=== PATIENT | female | born 1980 | race Caucasian/White ===

== ENCOUNTER 2018-12-14 17:13 | Emergency (ER) | payer OTHER, MEDICAID, SELFPAY ==
[2018-12-14 17:24] VITALS: BP 126/83; PULSE 83; RESP 16; TEMP 37.1; O2SAT 98; BMI 29.2
--- NOTE | 2018-12-14 18:12 | ED.HA ---
HPI - Headache General Chief Complaint: Headache Stated Complaint: migraine with vertigo Time Seen by Provider: 12/14/18 18:08 Source: patient Mode of arrival: ambulatory Limitations: no limitations History of Present Illness HPI Narrative: 38-year-old female nonsmoker with longstanding history of migraine headaches presents with a left frontal headache which is gradual in its onset and very classic for the way her migraines present. She admits to 7 pain which is worse with bright lights, loud noises and exertion. She has nausea but no vomiting. She tends to developed vertigo when her migraines flare up and states that they tend to coincide with her menstrual cycles, she started her period today. She denies any recent injury nor fever or chills. She has no neck or back pain MD Complaint: headache and migraine Onset (ago): day(s) Onset description: gradual Location: left and frontal Severity: severe Severity scale (1-10): 7 Quality: aching and throbbing Relieving factors: dark room Exacerbating factors: exertion, light and noise Associated symptoms: nausea Related Data Previous Rx's Medication Instructions Recorded butalbital 50 mg-acetaminophen 325 2 cap PO .COMPLEX PRN #15 cap 04/26/18 mg-caffeine 40 mg-codeine 30 mg cap hydroxyzine pamoate 25 mg capsule 25 mg PO Q4HP PRN #60 cap 08/24/18 venlafaxine ER 150 mg 150 mg PO DAILY #90 cap 08/24/18 capsule,extended release 24 hr venlafaxine ER 75 mg 75 mg PO DAILY #90 cap 08/24/18 capsule,extended release 24 hr ranitidine 300 mg tablet 300 mg PO BID #180 tab 10/04/18 eletriptan 40 mg tablet See Rx Instructions PO .COMPLEX 12/10/18 #10 tab verapamil ER 120 mg 24 hr 120 mg PO DAILY #60 cap 12/10/18 capsule,extended release Allergies Allergy/AdvReac Type Severity Reaction Status Date / Time cefaclor [CEFACLOR] Allergy Intermediate HIVES Verified 12/14/18 17:29 Penicillins [PENICILLINS] Allergy Intermediate HIVES Verified 12/14/18 17:29 Review of Systems Constitutional Denies chills, Denies fever(s), Reports headache(s), Denies lethargy and Denies weakness Eyes Denies change in vision, Denies eye discharge, Denies irritation and Denies loss of vision ENT Ears, Nose, Mouth, and Throat: Denies change in voice, Reports headache(s), Denies neck pain and Denies sore throat Cardiovascular Denies chest pain, Denies irregular heart rhythm, Denies lightheadedness, Denies palpitations, Denies dyspnea, Denies dyspnea on exertion and Denies orthopnea Respiratory Denies cough, Denies dyspnea, Denies dyspnea on exertion and Denies wheezing Gastrointestinal Gastrointestinal: Denies abdominal pain, Denies change in bowel habits, Denies diarrhea, Denies nausea and Denies vomiting Genitourinary Denies hematuria, Denies flank pain, Denies urinary incontinence and Denies urinary urgency Musculoskeletal Denies neck pain Integumentary/Breasts Denies pruritus, Denies erythema, Denies rash and Denies wounds Neurologic Denies confusion, Reports headache(s), Denies loss of vision and Denies weakness Psychiatric Denies anxiety, Denies confusion, Denies depression, Denies homicidal ideation and Denies suicidal ideation Endocrine Denies palpitations Hematologic/Lymphatic Denies easy bruising Allergic/Immunologic Denies wheezing [facility] Medical History Anxiety and depression (Chronic) Migraines (Chronic) depression (Chronic) Abnormal Pap smear of cervix (Resolved) DVT (deep vein thrombosis) in (Resolved 2014) 4 para 4 (Resolved) Hyperemesis gravidarum (Resolved) Surgical History Status post delivery (Resolved 2016) Status post loop electrosurgical excision procedure (LEEP) of cervix (Resolved 2012) Family History Mother Hypertension Father Hypertension Chronic pancreatitis Social History marital status: occupational status: other ([employer]) Smoking Status: Never smoker alcohol intake: never substance use type: does not use Family History Mother Hypertension Father Hypertension Chronic pancreatitis Social History marital status: occupational status: other ([employer]) Smoking Status: Never smoker alcohol intake: never substance use type: does not use Exam Narrative Exam Narrative: GENERAL: Female, obviously quite uncomfortable, massaging her temples and sitting in a dark room HEAD: Atraumatic. Normocephalic. No temporal or scalp tenderness. EYES: Pupils equal round and reactive. Extraocular motions intact. No scleral icterus. No injection or drainage. ENT: Nose without bleeding, purulent drainage or septal hematoma. Throat without erythema, tonsillar hypertrophy or exudate. Uvula midline. Airway patent. NECK: Trachea midline. No JVD or lymphadenopathy. Supple, nontender, no meningeal signs. CARDIOVASCULAR: Regular rate and rhythm without murmurs, gallops, or rubs. RESPIRATORY: Clear to auscultation. Breath sounds equal bilaterally. No wheezes, rales, or rhonchi. GASTROINTESTINAL: Abdomen soft, non-tender, nondistended. No hepato-splenomegaly, or palpable masses. No guarding. EXTREMITIES: No clubbing, cyanosis, or edema. No joint tenderness, effusion, or edema noted. BACK: Nontender without deformity or crepitance. No flank tenderness. NEURO: AOx3. SKIN: No rash or erythema. NIH Stroke Scale 1a. LOC: Patient is alert and keenly responsive (0) 1b. LOC Questions: Patient answers both LOC questions accurately (0) 1c. LOC Commands: Patient performs both tasks correctly (0) 2. Best Gaze: Normal (0) 3. Visual: No visual loss (0) 4. Facial palsy: Normal symmetrical movements (0) 5. Motor arm: No drift (0) 6. Motor leg: No drift (0) 7. Limb ataxia: Absent (0) 8. Sensory: Normal (0) 9. Best language: No aphasia; normal (0) 10. Dysarthria: Normal (0) 11. Extinction and inattention: No abnormality (0) NIHSS: 0 Initial Vital Signs Initial Vital Signs: Vital Signs Temperature 98.7 F 12/14/18 17:24 Pulse Rate 83 12/14/18 17:24 Respiratory Rate 16 12/14/18 17:24 Blood Pressure 126/83 12/14/18 17:24 Pulse Oximetry 98 12/14/18 17:24 Course Orders Ordered: Discontinued Medications Dexamethasone (Decadron) 10 mg IV NOW ONE Stop: 12/14/18 18:42 Last Admin: 12/14/18 19:02 Dose: 10 mg Diphenhydramine HCl (Benadryl) 25 mg IV NOW ONE Stop: 12/14/18 18:42 Last Admin: 12/14/18 19:06 Dose: 25 mg Sodium Chloride (Normal Saline 0.9%) 1,000 mls @ 1,000 mls/hr IV BOLUS ONE Stop: 12/14/18 19:40 Last Infusion: 12/14/18 20:19 Dose: 0 mls/hr Admin: 12/14/18 19:02 Dose: 1,000 mls/hr Ketorolac Tromethamine (Toradol) 15 mg IV NOW ONE Stop: 12/14/18 18:42 Last Admin: 12/14/18 19:06 Dose: 15 mg Metoclopramide HCl (Reglan) 10 mg IV NOW ONE Stop: 12/14/18 18:42 Last Admin: 12/14/18 19:08 Dose: 10 mg Reevaluation(s) Reevaluation #1: Patient has significant improvement after the above-stated therapies is requesting discharge Vital Signs - 8 hr 12/14/18 17:24 12/14/18 19:00 12/14/18 20:02 Temperature 98.7 F Pulse Rate 83 84 79 Respiratory Rate 16 18 18 Blood Pressure 126/83 Blood Pressure [Left Arm] 115/78 113/69 Pulse Oximetry 98 100 100 12/14/18 20:20 Temperature Pulse Rate 62 Respiratory Rate 16 Blood Pressure 110/71 Blood Pressure [Left Arm] Pulse Oximetry 100 MDM - Headache Lab Data Point of Care Testing Glucose POC 91 Discharge Plan Departure Patient Disposition: Home Clinical Impression: Migraine without aura and without status migrainosus, not intractable Discharge Date/Time: 12/14/18 20:20 Interventions: ED Discharge Assessment Last Done: 12/14/18 20:20 Instructions: DI for Headache Activity Restrictions/Additional Instructions: *You have been diagnosed with [acute migraine headache] *What to do: *Take medications as directed *Follow up with your primary care provider in 2-3 days, call for an appointment. Let them know you were seen in the Emergency Department and that we ask that you be seen in follow up *Return to ER if you should have any new, worsening or concerning symptoms Prescriptions: No Action ranitidine HCl 300 mg tablet 300 mg PO BID Qty: 180 RF: 3 hydroxyzine pamoate 25 mg capsule 25 mg PO Q4HP PRN (Reason: anxiety) Qty: 60 RF: 3 venlafaxine 150 mg capsule,extended release 24hr 150 mg PO DAILY Qty: 90 RF: 3 venlafaxine 75 mg capsule,extended release 24hr 75 mg PO DAILY Qty: 90 RF: 3 jmeypwlvra-qktgotahgh-jrs-cod 18-491-11-30 mg capsule 2 cap PO .COMPLEX PRN (Reason: pain) Qty: 15 RF: 5 verapamil 120 mg capsule,ext rel. pellets 24 hr 120 mg PO DAILY Qty: 60 RF: 2 eletriptan 40 mg tablet See Rx Instructions PO .COMPLEX Qty: 10 RF: 2 Referrals: Kiera Abdalla DO [Primary Care Provider] -
[2018-12-14 19:00] VITALS: BP 115/78; PULSE 84; RESP 18; O2SAT 100
[2018-12-14] MEDS: SODIUM CHLORIDE 0.9% 1,000 ML 1000 ML IV (19:02)
[2018-12-14] MEDS: DEXAMETHASONE 10 MG/ML VIAL IV (19:02)
[2018-12-14] MEDS: diphenhydrAMINE 50 MG/ML VIAL 25 MG IV (19:06)
[2018-12-14] MEDS: KETOROLAC 60 MG/2 ML VIAL 15 MG IV (19:06)
[2018-12-14] MEDS: METOCLOPRAMIDE 10 MG/2 ML INJ IV (19:08)
--- NOTE | 2018-12-14 20:00 | PC.NURSE ---
NAD. Pt resting comfortably at this time. States feeling better. Pain tolerated at this time. 08/19. Will continue to monitor.
[2018-12-14 20:02] VITALS: BP 113/69; PULSE 79; RESP 18; O2SAT 100
[2018-12-14 20:20] VITALS: BP 110/71; PULSE 62; RESP 16; O2SAT 100
== END 2018-12-14 20:20 | disposition home or self-care (01) ==
PROVIDERS: Emergency Provider Emergency Medicine; Family Provider Family Medicine; PCP Family Medicine
DX: G43.009 Migraine without aura, not intractable, without status migrainosus (principal)
CPT/HCPCS: 36591; 82962; 96361; 96374; 96375; 99283; 99284; J1100; J1200; J1885; J2765

== ENCOUNTER → 2019-02-01 16:20 | Outpatient (CLI) | payer OTHER, MEDICAID, SELFPAY ==
[2019-02-01 18:20] LABS: Appearance Urine UA CLEAR; Bilirubin Urine UA NEGATIVE (NEGATIVE); Color Urine UA YELLOW; Glucose Urine UA NEGATIVE (Negative); Ketones Urine UA NEGATIVE (NEGATIVE); Leukocyte Esterase Urine UA 2+ (NEGATIVE); Nitrite Urine UA NEGATIVE (Negative); Occult Blood Urine UA 3+ (Negative); Protein Urine UA NEGATIVE (Negative); Specific Gravity Urine UA <=1.005 (1.000-1.035); Urobilinogen Urine UA 0.2 E.U./dL (0.2)
[2019-02-01 18:46] LABS: Bacteria Urine Few (2-10); Culture Indicated Urine Specimen Cultured; RBC Urine 5-10/HPF (0-5/HPF); Squamous Epithelial Cell Urine 0-1 /HPF (0-5/HPF); WBC Urine 10-30/HPF (0-5/HPF)
== END ==
PROVIDERS: Family Provider Family Medicine; PCP Family Medicine; Visit Provider Hospitalist
DX: R31.9 Hematuria, unspecified (principal); R35.0 Frequency of micturition
CPT/HCPCS: 81001; 87086

== ENCOUNTER → 2019-03-19 14:56 | Outpatient (CLI) | payer OTHER, MEDICAID, SELFPAY | PROVIDERS: Family Provider Family Medicine; PCP Family Medicine; Visit Provider Family Medicine | DX: R30.0 Dysuria (principal) | CPT/HCPCS: 87086 ==

== ENCOUNTER → 2020-05-20 13:58 | Outpatient (CLI) | payer OTHER, MEDICAID, SELFPAY ==
--- NOTE | 2020-05-20 13:59 | DI.RAD.S_ITS ---
PROCEDURE: XR LUMBAR SPINE 2-3V INDICATIONS: low back pain TECHNIQUE: 3 views of the lumbar spine were acquired. COMPARISON: None. FINDINGS: Bones: 5 hky-bia-mjzklpe vertebrae are present. There is normal bony alignment. No vertebral body compression fractures. No suspicious bony lesions. Soft tissues: Overlying bowel gas pattern is normal. 3 mm calcification projected over the right upper quadrant suspicious for small gallstone or small renal calculus. IMPRESSION: Mild degenerative change. Right upper quadrant calcification suspicious for small gallstone or renal calculus. Dictated by: Wanda Melara M.D. on 05/20/2020 at 15:30 Approved by: Wanda Melara M.D. on 05/20/2020 at 15:38
== END ==
PROVIDERS: Family Provider Family Medicine; PCP Family Medicine; Referring Provider Nurse Practitioner Family; Visit Provider Nurse Practitioner Family
DX: M54.5 Low back pain (principal); M47.816 Spondylosis without myelopathy or radiculopathy, lumbar region
CPT/HCPCS: 72100

== ENCOUNTER → 2020-05-27 13:12 | Outpatient (CLI) | payer OTHER, MEDICAID, SELFPAY ==
--- NOTE | 2020-05-27 13:13 | DI.US.S_ITS ---
PROCEDURE: US ABDOMEN COMPLETE INDICATIONS: POSSIBLE GALLBLADDER OR KIDNEY STONE SEEN ON PRIOR XRAY TECHNIQUE: Real-time scanning was performed of the abdominal and retroperitoneal organs, with image documentation. COMPARISON: [facility], US, ABDOMEN COMPLETE, 12/29/2010, 21:38. FINDINGS: Liver: Liver is diffusely echogenic and measures 13.0 cm. Gallbladder: Gallbladder distended. No gallbladder wall thickening or sonographic Keating sign. Biliary ducts: Intrahepatic bile ducts are non-dilated. Extrahepatic bile duct caliber measures 2-3 mm. Normal is 6-7 mm or less in diameter, or 10 mm or less post-cholecystectomy. Pancreas: Visualized portions of the pancreas are sonographically normal. Spleen: Spleen is normal in size and homogeneous in echotexture. Kidneys: Kidneys are normal in size and echotexture. Right kidney measures 11.0 cm long; left kidney measures 11.0 cm long. Mild right hydronephrosis. Bilateral small echogenic foci within the kidneys suggestive of nephrolithiasis. Aorta: Visualized aorta is normal in caliber at less than 3 cm. Iliacs: Proximal common iliac arteries are normal in caliber at less than 2.5 cm. IVC: Intrahepatic inferior vena cava is patent. Miscellaneous: No free abdominal fluid. IMPRESSION: Distended gallbladder however no other sonographic criteria for acute cholecystitis. Findings suggest bilateral nephrolithiasis which could be confirmed with CT KUB. Mild right hydronephrosis Dictated by: Yefri Love M.D. on 05/27/2020 at 16:09 Approved by: Yefri Love M.D. on 05/27/2020 at 16:11
== END ==
PROVIDERS: Family Provider Family Medicine; PCP Family Medicine; Referring Provider Nurse Practitioner Family; Visit Provider Nurse Practitioner Family
DX: R93.89 Abnormal findings on diagnostic imaging of other specified body structures (principal); N13.30 Unspecified hydronephrosis
CPT/HCPCS: 76700

== ENCOUNTER → 2020-06-10 15:15 | Outpatient (CLI) | payer OTHER, MEDICAID, SELFPAY ==
[2020-06-10 15:57] LABS: Hematocrit 40.4 % (36-46); Hemoglobin 13.4 g/dL (12.0-16.0); Mean Corpuscular HGB Conc 33.2 % (30-36); Mean Corpuscular Hemoglobin 30.1 PG (26-34); Mean Corpuscular Volume 90.5 fL (80-100); Platelet Count 284 X10^3/uL (150-400); Red Blood Cell Count 4.46 X10^6/uL (4.0-5.2); Red Cell Distribution Width 13.1 % (11.6-14.8); White Blood Cell Count 7.6 X10^3/uL (4.5-11.0)
[2020-06-10 16:09] LABS: Alanine Aminotransferase 13 IU/L (<35); Albumin 4.4 g/dL (3.5-5.0); Albumin Globulin Ratio 1.5 (1.0-2.8); Alkaline Phosphatase 83 U/L (38-126); Aspartate Aminotransferase 21 IU/L (14-36); BUN Creatinine Ratio 22.6 (6-22); Bilirubin Total 0.2 mg/dL (0.2-1.3); Blood Urea Nitrogen 14 mg/dL (7-17); Calcium 8.8 mg/dL (8.4-10.2); Carbon Dioxide 23 mmol/L (22-32); Chloride 110 mmol/L (98-107); Estimated Glomerular Filt Rate > 60.0 mL/min (>60); Glucose 95 mg/dL (70-100); HEMOLYSIS 24 (0-50); Potassium 4.1 mmol/L (3.4-5.1); Sodium 138 mmol/L (137-145); Total Protein 7.4 g/dL (6.3-8.2)
== END ==
PROVIDERS: Family Provider Family Medicine; PCP Family Medicine; Referring Provider Nurse Practitioner Family; Visit Provider Nurse Practitioner Family
DX: N20.0 Calculus of kidney (principal); R31.9 Hematuria, unspecified
CPT/HCPCS: 36415; 80053; 85027

== ENCOUNTER → 2020-07-22 12:54 | Outpatient (CLI) | payer OTHER, MEDICAID, SELFPAY ==
[2020-08-03 14:13] LABS: Size 4X4 mm; Stone Analysis Source URINARY TRACT
== END ==
PROVIDERS: Family Provider Family Medicine; PCP Family Medicine; Referring Provider Nurse Practitioner Family; Visit Provider Nurse Practitioner Family
DX: N20.0 Calculus of kidney (principal)
CPT/HCPCS: 82365

== ENCOUNTER → 2020-10-29 13:22 | Outpatient (CLI) | payer OTHER, MEDICAID, SELFPAY ==
[2020-10-29 14:06] LABS: Appearance Urine UA SL CLOUDY; Bilirubin Urine UA NEGATIVE (NEGATIVE); Color Urine UA YELLOW; Glucose Urine UA NEGATIVE (Negative); Ketones Urine UA NEGATIVE (NEGATIVE); Leukocyte Esterase Urine UA NEGATIVE (NEGATIVE); Nitrite Urine UA NEGATIVE (Negative); Occult Blood Urine UA 3+ (Negative); Protein Urine UA NEGATIVE (Negative); Specific Gravity Urine UA 1.015 (1.000-1.035); Urobilinogen Urine UA 0.2 E.U./dL (0.2)
[2020-10-29 14:14] LABS: pH Urine UA 6.5 (4.5-8.0)
[2020-10-29 14:29] LABS: Add Manual Diff / Slide Review NO; Basophils Absolute Auto 0 /uL (0-100); Basophils Percent Auto 0.1 % (0-2); Eosinophils Absolute Auto 200 /uL (0-450); Eosinophils Percent Auto 1.8 % (2-4); Hematocrit 37.3 % (36-46); Hemoglobin 12.5 g/dL (12.0-16.0); Lymphocytes Absolute Auto 1400 /uL (1100-4500); Lymphocytes Percent Auto 14.2 % (25-40); Mean Corpuscular HGB Conc 33.5 % (30-36); Mean Corpuscular Hemoglobin 30.5 PG (26-34); Mean Corpuscular Volume 90.9 fL (80-100); Monocytes Absolute Auto 600 /uL (0-900); Monocytes Percent Auto 5.8 % (3-14); Neutrophils Absolute Auto 7800 /uL (1500-7000); Neutrophils Percent Auto 78.1 % (50-75); Platelet Count 262 X10^3/uL (150-400); Red Blood Cell Count 4.11 X10^6/uL (4.0-5.2); Red Cell Distribution Width 12.7 % (11.6-14.8)
[2020-10-29 14:31] LABS: RBC Urine 10-30/HPF (0-5/HPF)
[2020-10-29 14:32] LABS: Bacteria Urine Occasional (0-1); Culture Indicated Urine Cult Not Indicated; Squamous Epithelial Cell Urine 0-1 /HPF (0-5/HPF); WBC Urine 0-1/HPF (0-5/HPF)
[2020-10-29 15:26] LABS: TSH w/ Reflex to FT4 2.47 uIU/mL (0.47-4.68)
[2020-10-29 16:57] LABS: Alanine Aminotransferase 14 IU/L (<35); Albumin 4.1 g/dL (3.5-5.0); Albumin Globulin Ratio 1.6 (1.0-2.8); Alkaline Phosphatase 70 U/L (38-126); Aspartate Aminotransferase 23 IU/L (14-36); BUN Creatinine Ratio 20.3 (6-22); Bilirubin Total 0.3 mg/dL (0.2-1.3); Blood Urea Nitrogen 13 mg/dL (7-17); Calcium 10.5 mg/dL (8.4-10.2); Carbon Dioxide 22 mmol/L (22-32); Chloride 104 mmol/L (98-107); Estimated Glomerular Filt Rate > 60.0 mL/min (>60); Globulin 2.5 g/dL (1.7-4.1); Glucose 80 mg/dL (70-100); HEMOLYSIS < 15 (0-50); Potassium 4.1 mmol/L (3.4-5.1); Sodium 135 mmol/L (137-145); Total Protein 6.6 g/dL (6.3-8.2)
[2020-10-29 17:27] LABS: Cortisol Random 7.23 ug/dL
== END ==
PROVIDERS: Family Provider Family Medicine; PCP Family Medicine; Referring Provider Family Medicine; Visit Provider Family Medicine
DX: E66.9 Obesity, unspecified (principal); R53.83 Other fatigue; R10.9 Unspecified abdominal pain
CPT/HCPCS: 36415; 80053; 81001; 82533; 84443; 85025

== ENCOUNTER 2020-10-31 01:25 | Emergency (ER) | payer OTHER, MEDICAID, SELFPAY ==
[2020-10-31 01:25] VITALS: BP 165/98; PULSE 94; RESP 22; TEMP 37; O2SAT 97
--- NOTE | 2020-10-31 01:47 | ED.BACK ---
HPI - Back Pain/Injury General Chief Complaint: Back Pain/Injury Stated Complaint: thinks she has kidney stone/rt side pain Time Seen by Provider: 10/31/20 01:33 Source: patient Mode of arrival: Ambulatory Limitations: no limitations History of Present Illness HPI Narrative: 40-year-old female nonsmoker with history of kidney stones presents with a chief complaint of gradually worsening right flank pain with radiation into right groin. She denies any obvious provocation or palliation. She states it is sharp, stabbing and severe in nature. She has had some nausea and vomiting and last took Zofran and Toradol few hours prior to her arrival. She denies any fever or chills. She denies dysuria, frequency or urgency. She is unable to find a position of comfort MD Complaint: other Onset (ago): day(s) Duration: intermittent Similar Symptoms Previously: Yes Location: right flank Severity: severe Quality: sharp and stabbing Radiation: groin Relieving factors: none Exacerbating factors: none Related Data Home Medications Medication Instructions Recorded Confirmed ascorbic acid (vitamin C) 500 mg 250 mg PO DAILY 10/09/20 10/19/20 tablet calcium carbonate 500 mg calcium 500 mg PO DAILY 10/09/20 10/19/20 (1,250 mg) tablet cholecalciferol (vitamin D3) 50 50 mcg PO DAILY 10/09/20 10/19/20 mcg (2,000 unit) tablet coenzyme Q10 30 mg capsule 30 mg PO DAILY 10/09/20 10/19/20 ibuprofen 600 mg tablet 600 mg PO Q8H PRN 10/09/20 10/19/20 magnesium 200 mg tablet 200 mg PO DAILY 10/09/20 10/19/20 ondansetron 8 mg disintegrating 8 mg PO Q12H 10/09/20 10/19/20 tablet tumeric Curcumin complex PO 10/09/20 10/19/20 Previous Rx's Medication Instructions Recorded verapamil 120 mg tablet 120 mg PO BID #60 tab 07/11/19 eletriptan 40 mg tablet See Rx Instructions PO .COMPLEX 12/05/19 #10 tab butalbital 50 mg-acetaminophen 325 See Rx Instructions .ROUTE 02/18/20 mg-caffeine 40 mg-codeine 30 mg cap .COMPLEX #20 cap diclofenac sodium 1 % topical gel 2 g TOPICAL QID #100 g 05/20/20 venlafaxine 150 mg 300 mg PO DAILY #60 cap 10/19/20 capsule,extended release 24 hr propranolol 10 mg tablet 10 mg PO BID PRN #30 tab 10/27/20 hydrocodone-acetaminophen 1 tab PO Q4-6H PRN #10 tab 10/31/20 ondansetron 4 mg PO TID-QID PRN #10 tab 10/31/20 sulfamethoxazole-trimethoprim 1 tab PO BID 10 Days #20 tab 10/31/20 [Bactrim DS] tamsulosin [Flomax] 0.4 mg PO DAILY #10 cap 10/31/20 Allergies Allergy/AdvReac Type Severity Reaction Status Date / Time cefaclor [CEFACLOR] Allergy Intermediate HIVES Verified 10/13/20 11:11 Penicillins [PENICILLINS] Allergy Intermediate HIVES Verified 10/13/20 11:11 Review of Systems Constitutional Constitutional: Denies chills, Denies fatigue, Denies fever(s), Denies frequent falls, Denies lethargy and Denies weakness Eyes Eyes: Denies change in vision, Denies eye discharge, Denies irritation and Denies loss of vision ENT Ears, Nose, Mouth, and Throat: Denies change in voice, Denies dizziness, Denies neck pain, Denies sore throat and Denies throat swelling Cardiovascular Cardiovascular: Denies chest pain, Denies irregular heart rhythm, Denies lightheadedness, Denies palpitations, Denies dyspnea, Denies dyspnea on exertion and Denies orthopnea Respiratory Respiratory: Denies cough, Denies dyspnea, Denies dyspnea on exertion and Denies wheezing Gastrointestinal Gastrointestinal: Denies abdominal pain, Denies change in bowel habits, Denies diarrhea, Denies nausea and Denies vomiting Genitourinary Genitourinary: Reports flank pain Genitourinary: Reports flank pain Musculoskeletal Musculoskeletal: Denies neck pain and Denies numbness Integumentary/Breasts Skin/Breast: Denies pruritus, Denies erythema, Denies rash and Denies wounds Neurologic Neurologic: Denies behavioral changes, Denies confusion, Denies dizziness, Denies frequent falls, Denies loss of vision, Denies numbness and Denies weakness Psychiatric Psychiatric: Denies anxiety, Denies behavioral changes, Denies confusion, Denies depression, Denies homicidal ideation and Denies suicidal ideation Endocrine Endocrine: Denies fatigue, Denies flushing and Denies palpitations Hematologic/Lymphatic Hematologic/Lymphatic: Denies easy bruising Allergic/Immunologic Allergic/Immunologic: Denies urticaria, Denies throat swelling and Denies wheezing Patient History Medical History Abnormal Pap smear of cervix Anxiety and depression DVT (deep vein thrombosis) in (2014) 4 para 4 Hematuria Hyperemesis gravidarum Kidney stones Migraines Obesity (BMI 30.0-34.9) depression Surgical History H/O tubal ligation History of delivery Status post delivery (2016) Status post loop electrosurgical excision procedure (LEEP) of cervix (2012) Family History Mother Hypertension Cancer Migraines Father Hypertension Chronic pancreatitis Kidney stone Grandmother Cancer Diabetes mellitus Brother Eczema Migraines Social History marital status: number of children: 4 occupational status: other ([employer]) Smoking Status: Never smoker alcohol intake: current substance use type: does not use caffeine: Yes Smoking Status: Never smoker Substance Use Type: does not use Exam Narrative Exam Narrative: GENERAL: [40] year old patient appears stated age. Well-nourished, well-developed patient, in mild distress. Obviously in pain, rocking on the car, rubbing her right flank HEAD: Atraumatic. Normocephalic. EYES: Pupils equal round and reactive. Extraocular motions intact. No scleral icterus. No injection or drainage. ENT: Nose without bleeding, purulent drainage. Throat without erythema, tonsillar hypertrophy or exudate. Airway patent. NECK: Trachea midline. Non tender CARDIOVASCULAR: Regular rate and rhythm without murmurs, gallops, or rubs. RESPIRATORY: Clear to auscultation. Breath sounds equal bilaterally. No wheezes, rales, or rhonchi. GASTROINTESTINAL: Abdomen soft, non-tender, nondistended. EXTREMITIES: No edema or joint tenderness. BACK: Nontender without deformity or crepitance. No flank tenderness. NEURO: AOx3. SKIN: No rash or erythema of visible areas Initial Vital Signs Initial Vital Signs: Vital Signs Temperature 98.6 F 10/31/20 01:25 Pulse Rate 94 H 10/31/20 01:25 Respiratory Rate 22 10/31/20 01:25 Blood Pressure 165/98 H 10/31/20 01:25 Pulse Oximetry 97 10/31/20 01:25 Course Orders Ordered: ED Orders 10/31/20 02:14 CT kidney ureter bladder (KUB) Stat Basic Metabolic Panel Stat Complete Blood Count AUTO DIFF Stat Ondansetron HCl (Ondansetron 4 Mg/2 Ml Inj) 4 mg IV Q4HR PRN PRN Reason: Nausea And Vomiting Last Admin: 10/31/20 01:51 Dose: 4 mg Documented by: BENIGNO Discontinued Medications Hydrocodone Bitart/Acetaminophen (Hydrocodone/Acet 5/325 Prepack) 1 bottle MISC SEEINSTR ONE Stop: 10/31/20 03:49 Last Admin: 10/31/20 04:28 Dose: 1 bottle Documented by: Sodium Chloride (Normal Saline 0.9%) 1,000 mls @ 1,000 mls/hr IV BOLUS ONE Stop: 10/31/20 02:43 Last Admin: 10/31/20 01:51 Dose: 1,000 mls/hr Documented by: BENIGNO Lidocaine HCl 6 ml/ Sodium (Chloride) 56 mls @ 336 mls/hr IV NOW ONE Stop: 10/31/20 01:45 Last Infusion: 10/31/20 02:25 Dose: 0 mls/hr Documented by: Admin: 10/31/20 01:55 Dose: 336 mls/hr Documented by: BENIGNO Ketorolac Tromethamine (Ketorolac 30 Mg/Ml Vial) 15 mg IV NOW ONE Stop: 10/31/20 01:45 Last Admin: 10/31/20 01:54 Dose: 15 mg Documented by: BENIGNO Ondansetron HCl (Ondansetron 4 Mg Odt Prepack) 1 bottle MISC SEEINSTR ONE Stop: 10/31/20 03:49 Last Admin: 10/31/20 04:28 Dose: 1 bottle Documented by: Trimethoprim/Sulfamethoxazole (Trimeth/Sulfa 160/800 Prepack) 1 bottle MISC SEEINSTR ONE Stop: 10/31/20 03:49 Last Admin: 10/31/20 04:28 Dose: 1 bottle Documented by: Reevaluation(s) Reevaluation #1: Patient with near complete resolution of symptoms after above-stated therapies. Consultations Consultation #1: Call to Urology at [facility]. After extensive discussion she states that patient may go home, add Bactrim to the regimen, control pain strict return precautions and close follow-up with her urologist Vital Signs Vital signs: Vital Signs - 8 hr 10/31/20 01:25 Temperature 98.6 F Pulse Rate 94 H Respiratory Rate 22 Blood Pressure 165/98 H Pulse Oximetry 97 MDM - Back Pain/Injury Lab Data Result diagrams: 10/31/20 02:14 10/31/20 02:14 Labs: Lab Results 10/31/20 10/31/20 Range/Units 02:14 02:14 WBC 15.7 H D (4.5-11.0) X10^3/uL RBC 4.12 (4.0-5.2) X10^6/uL Hgb 12.4 (12.0-16.0) g/dL Hct 37.6 (36-46) % MCV 91.3 (80-100) fL MCH 30.1 (26-34) PG MCHC 32.9 (30-36) % RDW 12.7 (11.6-14.8) % Plt Count 261 (150-400) X10^3/uL Neut % (Auto) 87.0 H (50-75) % Lymph % (Auto) 7.1 L (25-40) % [place] % (Auto) 4.8 (3-14) % Eos % (Auto) 0.9 L (2-4) % Baso % (Auto) 0.2 (0-2) % Neut # (Auto) 32477 H (5470-4290) /uL Lymph # (Auto) 1100 (0275-7124) /uL [place] # (Auto) 800 (0-900) /uL Eos # (Auto) 100 (0-450) /uL Baso # (Auto) 0 (0-100) /uL Sodium 138 (137-145) mmol/L Potassium 4.0 (3.4-5.1) mmol/L Chloride 104 (98-107) mmol/L Carbon Dioxide 24 (22-32) mmol/L BUN 18 H (7-17) mg/dL Creatinine 1.02 (0.52-1.04) mg/dL Estimated GFR > 60.0 (>60) mL/min BUN/Creatinine Ratio 17.6 (6-22) Glucose 109 H (70-100) mg/dL Calcium 9.2 (8.4-10.2) mg/dL Urine Dip Bedside Urine Glucose Negative Bedside Urine Bilirubin - Negative Bedside Urine Ketone - Negative Urine Specific [place] 1.015 Bedside Urine Occult Blood +++ Bedside Urine pH 7.5 Bedside Urine Protein - Negative Bedside Urine Urobilinogen - Negative Bedside Urine Nitrite - Negative Bedside Urine Leukocytes + [address] scan - abdomen/pelvis: Radiologist's Impression: 9 mm stone with hydronephrosis, no perinephric stranding. MDM Narrative Medical decision making narrative: Patient presents with symptoms consistent with kidney stone. Her vital signs are stable, CT shows a 9 mm stone at the UVJ with significant hydronephrosis. She does have a slight elevation in her white blood cells but she had been vomiting. She is not septic, pain is well controlled, not vomiting, tolerating orals. I have consulted with Urology at the [facility] who recommends adding Bactrim to her antibiotic regimen, controlling her pain, strict return precautions. Patient has been given these return precautions and has had her questions answered to her apparent satisfaction. Discharge Plan Departure Patient Disposition: Home Clinical Impression: Kidney stone on right side Instructions: DI for Kidney Stones Activity Restrictions/Additional Instructions: *You have been diagnosed with [right-sided kidney stone. It is a large, 9 mm stone which is likely to have difficulty passing. As we discussed we will send you home with some medications including a 2nd antibiotic but you will need to follow closely with your urologist] *What to do: *Please continue to take your regular medications as directed. [ ] New medication prescriptions sent to your pharmacy: [ ] [x ] New medication written as a paper prescription [ ] No new medications given *Please follow up with your primary urologist in 2-3 days, call for an appointment. Let them know you were seen in the Emergency Department and that we ask that you be seen in follow up. We will electronically transmit a record of today's note to your urologist *Return to Emergency Department if you should have any new, worsening or concerning symptoms, such as [fever greater than 101 F, shaking chills, worsening pain, persistent vomiting or other bothersome symptoms] Prescriptions: New hydrocodone-acetaminophen 5-325 mg tablet 1 tab PO Q4-6H PRN (Reason: pain) Qty: 10 RF: 0 sulfamethoxazole-trimethoprim [Bactrim DS] 800-160 mg tablet 1 tab PO BID 10 Days Qty: 20 RF: 0 tamsulosin [Flomax] 0.4 mg capsule 0.4 mg PO DAILY Qty: 10 RF: 0 ondansetron 4 mg tablet,disintegrating 4 mg PO TID-QID PRN (Reason: nausea and vomiting) Qty: 10 RF: 0 No Action eletriptan 40 mg tablet See Rx Instructions PO .COMPLEX Qty: 10 RF: 2 esejintlux-qvjkqretga-ecf-cod 05-396-15-30 mg capsule See Rx Instructions .ROUTE .COMPLEX Qty: 20 RF: 0 venlafaxine 150 mg capsule,extended release 24hr 300 mg PO DAILY Qty: 60 RF: 2 propranolol 10 mg tablet 10 mg PO BID PRN (Reason: anxiety) Qty: 30 RF: 5 diclofenac sodium 1 % gel 2 g topical QID Qty: 100 RF: 0 verapamil 120 mg tablet 120 mg PO BID Qty: 60 RF: 5 ondansetron 8 mg tablet,disintegrating 8 mg PO Q12H RF: 0 tumeric Curcumin complex 1,000 mg PO RF: 0 calcium carbonate [Calcium 500] 500 mg calcium (1,250 mg) tablet 500 mg PO DAILY RF: 0 magnesium 200 mg tablet 200 mg PO DAILY RF: 0 cholecalciferol (vitamin D3) [Vitamin D3] 50 mcg (2,000 unit) tablet 50 mcg PO DAILY RF: 0 coenzyme Q10 [CoQ-10] 30 mg capsule 30 mg PO DAILY RF: 0 ascorbic acid (vitamin C) 500 mg tablet 250 mg PO DAILY RF: 0 ibuprofen 600 mg tablet 600 mg PO Q8H PRNRF: 0 Referrals: Kiera Abdalla DO [Primary Care Provider] - Shandra Malagon MD [Physician] -
[2020-10-31] MEDS: SODIUM CHLORIDE 0.9% 1,000 ML 1000 ML IV (01:51)
[2020-10-31] MEDS: ONDANSETRON 4 MG/2 ML INJ IV (01:51)
[2020-10-31] MEDS: KETOROLAC 30 MG/ML VIAL 15 MG IV (01:54)
[2020-10-31] MEDS: LIDOCAINE 2% 6 ML in SODIUM CHLORIDE 0.9% 50 ML 336 ML IV (01:55)
--- NOTE | 2020-10-31 02:14 | DI.CT.S_ITS ---
PROCEDURE: CT KIDNEY URETER BLADDER (KUB) INDICATIONS: R flank pain TECHNIQUE: Noncontrast 5 mm thick sections acquired from the diaphragms to the symphysis. 5 mm thick coronal and sagittal reformats were then performed. For radiation dose reduction, the following was used: automated exposure control, adjustment of mA and/or kV according to patient size. COMPARISON: [facility], US, US ABDOMEN COMPLETE, 05/27/2020, 13:29. [facility], CT, ABDOMEN/PELVIS WITH CONTRAST, 12/30/2010, 19:44. FINDINGS: Image quality: Excellent. Lung bases: Lung bases are clear. Heart size is normal. A small hiatal hernia is incidentally noted. Urinary system: There is an 8 mm obstructing stone seen involving the right ureterovesicular junction, with associated moderate to prominent right-sided hydroureter and hydronephrosis. Right-sided perinephric fat stranding is seen. No left-sided hydronephrosis is seen. Small nonobstructing kidney stones are seen, which measure up to 3 mm on each side. Bladder wall thickness is normal; no calcified bladder stones. Other solid organs: Liver is normal in size. Gallbladder wall is not thickened. Pancreas is normal in contours. Spleen is normal in size. No adrenal nodules. Peritoneum and bowel: Unenhanced bowel loops demonstrate normal wall thickness and caliber. No free fluid or air. A normal appendix is incidentally noted. Nodes and vessels: No retroperitoneal or mesenteric adenopathy by size criteria. Aorta and inferior vena cava are normal in caliber. Abdominal wall: A mild periumbilical hernia is seen, containing fat. Pelvis: No free pelvic fluid. No inguinal hernias or adenopathy. The uterus appears normal for age. No adnexal masses are seen. Bones: No suspicious bony lesions. No vertebral body compression fractures. IMPRESSION: 8 mm obstructing stone seen involving the right ureterovesicular junction, with associated hydroureter nephrosis, hydroureter, and perinephric fat stranding. Small nonobstructing bilateral renal stones are seen. Incidental note is made of: Small hiatal hernia Fat containing periumbilical hernia Normal appendix Note: No significant discrepancy from the preliminary report. Dictated by: Cleveland Estevez M.D. on 10/31/2020 at 12:46 Approved by: Cleveland Estevez M.D. on 10/31/2020 at 12:49
[2020-10-31 02:34] LABS: Add Manual Diff / Slide Review NO; Basophils Absolute Auto 0 /uL (0-100); Basophils Percent Auto 0.2 % (0-2); Eosinophils Absolute Auto 100 /uL (0-450); Eosinophils Percent Auto 0.9 % (2-4); Hematocrit 37.6 % (36-46); Hemoglobin 12.4 g/dL (12.0-16.0); Lymphocytes Absolute Auto 1100 /uL (1100-4500); Lymphocytes Percent Auto 7.1 % (25-40); Mean Corpuscular HGB Conc 32.9 % (30-36); Mean Corpuscular Hemoglobin 30.1 PG (26-34); Mean Corpuscular Volume 91.3 fL (80-100); Monocytes Absolute Auto 800 /uL (0-900); Monocytes Percent Auto 4.8 % (3-14); Neutrophils Absolute Auto 13700 /uL (1500-7000); Platelet Count 261 X10^3/uL (150-400); Red Blood Cell Count 4.12 X10^6/uL (4.0-5.2); Red Cell Distribution Width 12.7 % (11.6-14.8); White Blood Cell Count 15.7 X10^3/uL (4.5-11.0)
[2020-10-31 02:41] LABS: BUN Creatinine Ratio 17.6 (6-22); Blood Urea Nitrogen 18 mg/dL (7-17); Calcium 9.2 mg/dL (8.4-10.2); Carbon Dioxide 24 mmol/L (22-32); Chloride 104 mmol/L (98-107); Estimated Glomerular Filt Rate > 60.0 mL/min (>60); Glucose 109 mg/dL (70-100); Sodium 138 mmol/L (137-145)
[2020-10-31 02:42] LABS: HEMOLYSIS 62 (0-50)
[2020-10-31] MEDS: HYDROCODONE/ACET 5/325 PREPACK 1 BOTTLE MISC (04:28)
[2020-10-31] MEDS: ONDANSETRON 4 MG ODT PREPACK 1 BOTTLE MISC (04:28)
[2020-10-31] MEDS: TRIMETH/SULFA 160/800 PREPACK 1 BOTTLE MISC (04:28)
[2020-10-31 04:41] VITALS: BP 130/83; PULSE 74; RESP 16; O2SAT 98
== END 2020-10-31 04:42 | disposition home or self-care (01) ==
PROVIDERS: Emergency Provider Emergency Medicine; Family Provider Family Medicine; PCP Family Medicine
DX: N20.0 Calculus of kidney (principal); R11.10 Vomiting, unspecified
CPT/HCPCS: 36415; 74176; 80048; 81003; 85025; 96361; 96365; 96375; 99283; 99284; J1885; J2405

== ENCOUNTER → 2020-11-02 15:34 | Outpatient (CLI) | payer OTHER, MEDICAID, SELFPAY | PROVIDERS: Family Provider Family Medicine; PCP Family Medicine; Visit Provider Family Medicine | DX: E55.9 Vitamin D deficiency, unspecified (principal) | CPT/HCPCS: 82306 ==

== ENCOUNTER → 2021-05-09 12:36 | Outpatient (CLI) | payer OTHER, MEDICAID, SELFPAY ==
[2021-05-09 13:06] LABS: COVID19 -Nasal RAPID Negative (Negative)
== END ==
PROVIDERS: Family Provider Family Medicine; PCP Family Medicine; Referring Provider Physician Assistant; Visit Provider Physician Assistant
DX: R09.81 Nasal congestion (principal)
CPT/HCPCS: 87635

== ENCOUNTER → 2021-05-14 13:22 | Outpatient (CLI) | payer OTHER, MEDICAID, SELFPAY ==
[2021-05-14 14:00] LABS: Bilirubin Urine UA NEGATIVE (NEGATIVE); Color Urine UA YELLOW; Glucose Urine UA NEGATIVE (Negative); Ketones Urine UA NEGATIVE (NEGATIVE); Leukocyte Esterase Urine UA 1+ (NEGATIVE); Nitrite Urine UA NEGATIVE (Negative); Occult Blood Urine UA 2+ (Negative); Protein Urine UA TRACE (Negative); Specific Gravity Urine UA <=1.005 (1.000-1.035); Urobilinogen Urine UA 0.2 E.U./dL (0.2)
[2021-05-14 14:06] LABS: Appearance Urine UA Slightly Cloudy; pH Urine UA 6.5 (4.5-8.0)
[2021-05-14 14:12] LABS: RBC Urine 1-5/HPF (0-5/HPF); Squamous Epithelial Cell Urine 1-5 /HPF (0-5/HPF); WBC Urine 10-30/HPF (0-5/HPF)
[2021-05-14 14:13] LABS: Amorphous Sediment Urine 1+; Bacteria Urine Many (>30)
[2021-05-14 14:14] LABS: Culture Indicated Urine Specimen Cultured
== END ==
PROVIDERS: Family Provider Family Medicine; PCP Family Medicine; Referring Provider Family Medicine; Visit Provider Family Medicine
DX: R30.0 Dysuria (principal); R35.0 Frequency of micturition; R82.90 Unspecified abnormal findings in urine
CPT/HCPCS: 81001; 87077; 87086; 87186

== ENCOUNTER → 2021-05-24 11:36 | Outpatient (CLI) | payer OTHER, MEDICAID, SELFPAY ==
[2021-05-24 13:19] LABS: Appearance Urine UA CLEAR; Bilirubin Urine UA NEGATIVE (NEGATIVE); Color Urine UA YELLOW; Glucose Urine UA TRACE g/dL (Negative); Ketones Urine UA NEGATIVE (NEGATIVE); Leukocyte Esterase Urine UA 1+ (NEGATIVE); Nitrite Urine UA POSITIVE (Negative); Occult Blood Urine UA TRACE-LYSED (Negative); Protein Urine UA NEGATIVE (Negative)
[2021-05-24 13:43] LABS: pH Urine UA 6.5 (4.5-8.0)
[2021-05-24 13:44] LABS: Bacteria Urine Many (>30); Culture Indicated Urine Specimen Cultured; RBC Urine 0-1/HPF (0-5/HPF); Squamous Epithelial Cell Urine 1-5 /HPF (0-5/HPF); WBC Urine 1-5/HPF (0-5/HPF)
== END ==
PROVIDERS: Family Provider Family Medicine; PCP Family Medicine; Referring Provider Family Medicine; Visit Provider Family Medicine
DX: A49.9 Bacterial infection, unspecified (principal); N39.0 Urinary tract infection, site not specified
CPT/HCPCS: 81001; 87077; 87086; 87186

== ENCOUNTER → 2021-08-21 08:54 | Outpatient (CLI) | payer BC, OTHER, MEDICAID, SELFPAY | PROVIDERS: Family Provider Family Medicine; PCP Family Medicine; Visit Provider Nurse Practitioner Critical Care Medicine | DX: R30.0 Dysuria (principal) | CPT/HCPCS: 81002; 87077; 87086; 87186 ==

== ENCOUNTER → 2021-09-06 12:56 | Outpatient (CLI) | payer BC, OTHER, MEDICAID, SELFPAY ==
--- NOTE | 2021-09-06 13:16 | DI.CT.S_ITS ---
PROCEDURE: CT KIDNEY URETER BLADDER (KUB) INDICATIONS: Calculus of kidney TECHNIQUE: Axial sections were acquired from the lung bases to the pubic symphysis. Coronal and sagittal reformats were performed. For radiation dose reduction, the following was used: automated exposure control, adjustment of mA and/or kV according to patient size. COMPARISON: [facility], CT, CT KIDNEY URETER BLADDER (KUB), 10/31/2020, 2:20. FINDINGS: Image quality: Excellent. Lung bases: Unremarkable. Heart: No significant findings. URINARY: Right Kidney: Multiple (at least 6) small kidney stones. Largest stone measures 0.5 cm. No hydronephrosis. Probable small renal cysts. Right Ureter: No hydroureter. The previously seen right ureteral stone is no longer present. Left Kidney: Multiple (at least 6) small kidney stones. Largest stone measuring 0.4 cm. No hydronephrosis. Probable small renal cysts. Left Ureter: No hydroureter. Bladder: Normal wall thickness. No stones. ABDOMEN: Liver: Unremarkable. Gallbladder: Kidney stone measuring 0.7 cm. Biliary ducts: Unremarkable. Pancreas: Unremarkable. Spleen: Unremarkable. Adrenal Glands: Unremarkable. Stomach and Bowel: Stomach, small bowel loops, and colon are unremarkable. Normal appendix. Peritoneum: No abnormal intraperitoneal fluid. No free air. Ventral Wall: Small umbilical hernia. Abdominal Nodes: No enlarged retroperitoneal or mesenteric lymph nodes. Vessels: Aorta and inferior vena cava are normal in size. PELVIS: Pelvic Organs: Retroverted uterus. Pessary. Pelvic Nodes: Unremarkable. Miscellaneous: No inguinal hernias are seen. Bones: No suspicious lesion. L5-S1 DDD. IMPRESSION: 1. No hydronephrosis. 2. Multiple nonobstructing kidney stones bilaterally. 3. No free fluid. Dictated by: Jann Cavanaugh M.D. on 09/06/2021 at 14:42 Approved by: Jann Cavanaugh M.D. on 09/06/2021 at 14:49
== END ==
PROVIDERS: Family Provider Family Medicine; PCP Family Medicine; Referring Provider Physician Assistant Medical; Visit Provider Physician Assistant Medical
DX: N20.0 Calculus of kidney (principal)
CPT/HCPCS: 74176

== ENCOUNTER → 2022-03-04 17:23 | Outpatient (CLI) | payer OTHER, MEDICAID, SELFPAY ==
--- NOTE | 2022-03-04 17:27 | DI.MG.S_ITS ---
BILATERAL DIGITAL SCREENING MAMMOGRAM 3D/2D WITH CAD: 03/04/2022 CLINICAL: Routine screening. Baseline exam. Family history of breast cancer. No prior exams were available for comparison. Both breasts are heterogeneously dense, which may obscure small masses (category c / 51-75% glandular tissue). Current study was also evaluated with a Computer Aided Detection (CAD) system. No significant masses, calcifications, or other findings are seen in either breast. IMPRESSION: NEGATIVE There is no mammographic evidence of malignancy. A 1 year screening mammogram is recommended. Based on the Tyrer Cuzick model (a risk assessment model) the patient's lifetime risk is 10.0% and her 10 year risk is 1.2%. According to the ACR, ACS, and NCCN guidelines, an annual breast MRI exam along with mammogram is recommended if the patient's lifetime risk is 20% or greater. This exam was interpreted at Station ID: [id number]. NOTE: For mammograms, a report in lay terms will be sent to the patient. Approximately 15% of breast malignancies will not be visualized mammographically. In the management of a palpable breast mass, a negative mammogram must not discourage biopsy of a clinically suspicious lesion. Electronically Signed By: Mich Olsen M.D., jr/juan a:03/07/2022 10:58:11 letter sent: Normal Exam ACR BI-RADS Category 1: Negative [id number]
== END ==
PROVIDERS: Family Provider Family Medicine; PCP Family Medicine; Referring Provider Family Medicine; Visit Provider Family Medicine
DX: Z12.31 Encounter for screening mammogram for malignant neoplasm of breast (principal); Z80.3 Family history of malignant neoplasm of breast
CPT/HCPCS: 77063; 77067

== ENCOUNTER → 2022-03-09 12:12 | Outpatient (CLI) | payer OTHER, MEDICAID, SELFPAY ==
--- NOTE | 2022-03-09 12:13 | DI.US.S_ITS ---
PROCEDURE: US ABDOMEN LIMITED INDICATIONS: GALLSTONES TECHNIQUE: Real-time focused scanning was performed of the abdomen, with image documentation. COMPARISON: [facility], CT, CT KIDNEY URETER BLADDER (KUB), 09/06/2021, 13:16. [facility], US, ABDOMEN LIMITED, 07/27/2017, 10:51. [facility], US, US ABDOMEN COMPLETE, 05/27/2020, 13:29. FINDINGS: The liver is normal in size and demonstrates no focal lesions. No findings of gallstones or sludge are seen. The stone that can be seen by CT is not seen on this study. The gallbladder wall is not thickened, measuring 3 mm or less. Multiple apparent gallbladder wall polyps are seen, which appear calcified. The largest of these measures up to 3 mm. No specific pericholecystic fluid is seen. The sonographic Keating sign is negative. Prominent cystic duct is seen that measures 2.7 mm There is no biliary dilatation, the common bile duct measures 4 mm. No significant pancreatic abnormality is seen on these images. Overall scan quality is limited by bowel gas. IMPRESSION: No definite gallstones are seen. (The apparent gallstone that can be seen by CT is not seen on this study.) No biliary dilatation is seen, although the cystic duct is prominent. Apparent mildly calcified gallbladder polyps are seen. Dictated by: Cleveland Estevez M.D. on 03/09/2022 at 15:15 Approved by: Cleveland Estevez M.D. on 03/09/2022 at 15:18
== END ==
PROVIDERS: Family Provider Family Medicine; PCP Family Medicine; Referring Provider Family Medicine; Visit Provider Family Medicine
DX: K80.20 Calculus of gallbladder without cholecystitis without obstruction (principal)
CPT/HCPCS: 76705

== ENCOUNTER → 2022-04-11 10:34 | Outpatient (CLI) | payer OTHER, MEDICAID, SELFPAY ==
[2022-04-11 11:28] LABS: COVID19 -Nasal RAPID Negative (Negative)
== END ==
PROVIDERS: Family Provider Family Medicine; PCP Family Medicine; Visit Provider Surgery
DX: Z20.822 Contact with and (suspected) exposure to COVID-19 (principal); Z01.812 Encounter for preprocedural laboratory examination
CPT/HCPCS: 87635; C9803

== ENCOUNTER 2022-04-12 07:38 | Day surgery (SDC) | payer OTHER, MEDICAID, SELFPAY ==
[2022-04-08 08:50] VITALS: BMI 31.4
[2022-04-12] VITALS (13 sets, daily range): BP systolic 105–130; BP diastolic 70–87; PULSE 10–110; RESP 12–98; TEMP 36.1–36.7; O2SAT 12–99; BMI 31.4
--- NOTE | 2022-04-12 | PATH_ITS ---
[facility] Accession Number: [id number] . 01 Material submitted: . gallbladder - GALLBLADDER AND CONTENTS . 01 Diagnosis: Gallbladder and Contents: Gallbladdeer with mild chronic cholecystitis and cholesterolosis. MRV 04/15/2022 1340 Local . 01 Electronically signed: . Miguelina George MD, Pathologist NPI- [id number] . 01 Gross description: . The specimen is received in formalin, labeled with the patient's name. and gallbladder and contents, and consists of an intact gallbladder measuring 7.5 x 3.6 x 2.7 cm. The serosa is hansen-green and smooth while the hepatic surface is rough and unremarkable. The cystic duct is received closed with a clamp, is inked blue, and no pericystic lymph node is identified. Opening the specimen reveals the lumen to be filled with dark green viscous bile with no calculi identified within the lumen or the container. The mucosa is dark green and velvety with multiple pinpoint yellow areas of discoloration consistent with cholesterol deposits. No polyps or lesions are identified. The haque average 0.2 cm thick. Cop Winder sections to include the cystic duct margin and full-thickness sections are submitted in cassette A1. ([id number]) /MRV 04/14/2022 1834 Local . 01 Pathologist provided ICD-10: K80.00 . 01 CPT . 757885 Specimen Comment: A courtesy copy of this report has been sent to [phone] Performed at: 01 [facility] [address] [place] [address] [address] [facility], [place], [place] [id number] MD Rasta Sagastume MD Phone: [phone]
[2022-04-12] MEDS: LACTATED RINGERS 1,000 ML 42 ML IV ×2 (08:25→11:00)
--- NOTE | 2022-04-12 08:53 | PM.PREOP ---
Pre-operative Note COVID-19 COVID-19 status: Negative Result date/Date tested (Pos, Neg/Pending): 04/11/22 Interval Note History & Physical reviewed/Exam performed by Physician: Yes Changes to H&P: No ASA Class (for procedural sedation): II
[2022-04-12] MEDS: SCOPOLAMINE 1 PATCH TOP (09:35)
[2022-04-12] MEDS: ACETAMINOPHEN IV 1,000 MG/100 ML VIAL 400 MG IV (09:55)
[2022-04-12] MEDS: CLINDAMYCIN 900 MG/50 ML PIGGYBACK 50 MG IV (09:55)
--- NOTE | 2022-04-12 10:18 | SUR.OPER ---
Supine on padded OR bed, head on pillow, arms secured on padded arm boards at <90 degrees abduction, legs uncrossed, safety belt at thigh, tape over blanket over lower legs, footboard at bottom of bed
[2022-04-12] MEDS: BUPIVACAINE 0.5% (PF) 30 ML, EPINEPHrine 0.15 MG INJ (10:39)
[2022-04-12] MEDS: LIDOCAINE 1% 20 ML INJ (10:42)
[2022-04-12] MEDS: IOPAMIDOL 50 ML VIAL INJ (10:58)
--- NOTE | 2022-04-12 11:04 | DI.RAD.S_ITS ---
PROCEDURE: XR CHOLANGIOGRAM OPERATIVE INDICATIONS: CHOLECYSTITIS COMPARISON: None. FINDINGS: Biliary ducts: The surgeon injected contrast into the biliary ducts after cannulation of the cystic duct stump. Visualized intra- and extrahepatic bile ducts are normal in caliber, without strictures. No intraluminal filling defects to suggest retained ductal stones or sludge. No evidence for iatrogenic ductal injury. Duodenum: Contrast flows promptly through the sphincter of Oddi into the duodenum, which appears normal in caliber. IMPRESSION: Intraoperative cholangiogram shows postsurgical changes from cholecystectomy and patent common bile duct. No gross choledocholithiasis. Dictated by: Amado Gonzalez M.D. on 04/12/2022 at 11:49 Approved by: Amado Gonzalez M.D. on 04/12/2022 at 11:50
--- NOTE | 2022-04-12 11:37 | PM.OP.1 ---
Operative Date/Time/Diagnoses Date of procedure: 04/12/22 Time of procedure: 11:37 Pre-op diagnosis: Cholelithiasis Post-op diagnosis: same Procedure & Clinicians Procedure: Laparoscopic cholecystectomy with intraoperative cholangiogram Same procedure as scheduled: Yes Surgeon: Andrés Rodriguez Operative Notes Procedure in detail: The patient was given preoperative antibiotic. The patient was brought to the operating room, placed on the table in the supine position. General endotracheal anesthesia was induced. The abdomen was prepped and draped. A time-out was performed. We made a 1 cm infraumbilical incision. We dissected down to the base of the umbilical stalk using cautery. We grasped the umbilical stalk with a Darryn clamp to elevate the abdominal wall. We scored the fascia in the midline with cautery 1 cm. We pierced the peritoneum with a Peon clamp. The Vianney port was placed and the abdomen was insufflated to 15 mmHg. A 5 mm 30 degree laparoscopic was inserted. There was no evidence of any injury from the entry. Next, we placed 5 mm ports in the subxiphoid position and right upper quadrant at the midclavicular line and anterior axillary line. Patient was then positioned in reverse Trendelenburg and the table was tilted to the left. The gallbladder was grasped at the dome and retracted cephalad. The rather extensive adhesions to the liver and gallbladder that carefully taken down with cautery. We then dissected the cystic structures with a combination of hook cautery and blunt dissection. We obtained a critical view. Next, a cholangiogram was performed using the 6 [place] ureteral catheter. There was good flow of contrast into the duodenum and liver with no obvious filling defects. The cystic duct common duct junction was well visualized. We then placed hemoclips on the cystic duct and artery and divided the cystic duct and artery sharply between the clips. The gallbladder was then dissected off the liver and placed in a specimen retrieval bag. We irrigated the right upper quadrant and all the aspirate returned clear. We then removed the 5 mm ports under direct vision we removed the Vianney port. We then injected some local into the fascia and closed the fascia with 2 interrupted 0 Vicryl sutures. The skin incisions were closed with 4 Monocryl and Steri-Strips were applied. Band-Aids were applied over the Steri-Strips. EBL: 10 mL Specimen: Gallbladder Post-operative Condition: stable Disposition: PACU
[2022-04-12] MEDS: HYDROMORPHONE 2 MG INJ IV ×6 (11:42→12:16)
[2022-04-12] MEDS: LORazepam 2 MG/ML INJ 0.25 MG IV ×2 (11:45→11:55)
[2022-04-12] MEDS: ONDANSETRON 4 MG/2 ML INJ IV (11:47)
--- NOTE | 2022-04-12 11:48 | SUR.PHASEI ---
Hand off from Dr Willard. Order for Toradol IV received with read back.
[2022-04-12] MEDS: KETOROLAC 30 MG/ML VIAL IV (11:52)
--- NOTE | 2022-04-12 12:37 | SUR.PHASEI ---
Called OR #[address] Willard. Informed of continued pain and pt takes Hydroxyzine at home.
[2022-04-12] MEDS: hydrOXYzine pamoate 25 MG CAPSULE PO (12:40)
--- NOTE | 2022-04-12 12:56 | SUR.PHASEI ---
pt transferred to OPD phase II with SBAR report at bedside. Pt awake, alert, able to tolerated few bites of apple sauce and pain down to 4/10.
[2022-04-12] MEDS: OXYCODONE IR 5 MG TABLET PO (13:45)
--- NOTE | 2022-04-12 14:31 | SUR.PHASEII ---
Patient ambulated to bathroom and voided without difficulty. Tolerated PO fluids and snacks. Provided verbal and written discharge instructions. Patient stated understanding. Discharged patient by wheelchair in stable condition to private vehicle. See flowsheet for assessment details.
== END 2022-04-12 14:15 | disposition home or self-care (01) ==
PROVIDERS: Family Provider Family Medicine; PCP Family Medicine; Referring Provider Surgery; Visit Provider Surgery
PROC: 0FT44ZZ Resection of Gallbladder, Percutaneous Endoscopic Approach (ICD-10-PCS; CPT 47562; principal; 2022-04-12 09:15)
DX: K80.10 Calculus of gallbladder with chronic cholecystitis without obstruction (principal); G43.909 Migraine, unspecified, not intractable, without status migrainosus
CPT/HCPCS: 47563; 74300; 81025; J0131; J0171; J1100; J1170; J1885; J2060; J2250; J2405; J2704; J3010

== ENCOUNTER → 2022-04-27 10:15 | Outpatient (CLI) | payer OTHER, MEDICAID, SELFPAY ==
[2022-04-27 11:40] LABS: COVID-19 CEPHEID 4-PLEX PCR Negative (Negative); Influenza A - CEPHEID Flu A NEGATIVE (NEGATIVE); Influenza B - CEPHEID Flu B NEGATIVE (NEGATIVE); Respiratory Syncytial Virus Negative (Negative)
== END ==
PROVIDERS: Family Provider Family Medicine; PCP Family Medicine; Visit Provider Physician Assistant Medical
DX: J02.9 Acute pharyngitis, unspecified (principal)
CPT/HCPCS: 0241U; 87070; 87880

== ENCOUNTER 2022-07-26 10:30 | Outpatient (RCR) | payer OTHER, MEDICAID, SELFPAY ==
--- NOTE | 2022-03-09 20:28 | PT.OIE ---
Current Diagnoses Stress incontinence (female) (male) (03/09/22) Past Medical History (Last Reviewed 02/15/22 @ 09:42 by Kiera Abdalla DO) Abnormal Pap smear of cervix Anxiety and depression DVT (deep vein thrombosis) in (2014) 4 para 4 Hyperemesis gravidarum Kidney stones Migraines Obesity (BMI 30.0-34.9) depression Primary stress urinary incontinence Past Surgical History (Last Reviewed 02/15/22 @ 09:42 by Kiera Abdalla DO) H/O tubal ligation History of delivery Status post delivery (2016) Status post loop electrosurgical excision procedure (LEEP) of cervix (2012) Visit Care Team Role Provider Type Kiera Abdalla DO Attending Provider Physician Family Provider Primary Care Provider Referring Provider Specialty: Family Practice Address: [address] [place] [address], [facility] Email: [email or web address] Physical Therapy Initial Evaluation PT-OP-A Visit Information Start: 03/07/22 20:04 Freq: Status: Active Protocol: Document 03/09/22 09:06 AMB (Rec: 03/09/22 09:49 AMB [id number]) Out-Patient Physical Therapy Visit Information Visit Information Visit Type Initial Evaluation Visit Start Time 09:15 Visit Stop Time 10:00 Total Visit Minutes 45 Visit Number 1 PT-OP-B Current Condition Start: 03/07/22 20:04 Freq: Status: Active Protocol: Document 03/09/22 09:06 AMB (Rec: 03/09/22 09:49 AMB [id number]) Current Condition History of Current Condition History of Current Condition 2003 started sx; . 3 vaginal 1 . No instrument assistance, but did have hyperemesis and leaked with vomiting. Crosses legs when coughing or sneezing, lifting weights and elliptical . Doesn't do the elliptical very fast or run because would leak, doesn't wear a pad. Back pain started in 2007 got worse in 2014. Has been kegels. Personal Factors Other Personal Factors That May Effect Kidney stone removal and stent Therapy/Recovery November 2021, hx migraines, anxiety. Back pain PT-OP-I Pelvic Floor Start: 03/07/22 20:04 Freq: Status: Active Protocol: Document 03/11/22 12:42 AMB (Rec: 03/11/22 12:53 AMB [id number]) Pelvic Floor Assessment Urine Pelvic Floor Surgery Csection Leakage Size Small Leakage Cause Cough,Exercise,Sneeze Other Leakage Causes jumping, intercouse Contraction Ability Voluntary Contraction Weak Voluntary Relaxation Weak Manual Muscle Testing Left 2 Manual Muscle Testing Right 2 Manual Muscle Testing Anterior 2 Manual Muscle Testing Posterior 2 Muscle Endurance (Seconds) 4 Number of Quick Contractions In 10 3 Seconds Comments Pelvic Floor Comments frequent UTIs, kidney infections. Diastasis recti, 2 finger widths above and below umbilicus PT-OP-T Assessment and Plan Start: 03/07/22 20:04 Freq: Status: Active Protocol: Document 03/09/22 09:45 AMB (Rec: 03/15/22 16:00 AMB [id number]) Physical Therapy Assessment Rehab Potential Rehabilitation Potential Good Evaluation Complexity Number of Personal Factors/Comorbidities 1-2 Number of Body Systems Impaired 1-2 Clinical Presentation at Evaluation Stable Goals Three Impairment Pelvic floor strength Short Term Goal (STG) Elena will contract her pelvic floor for 10 seconds in standing. STG Duration 4 weeks Blood Donor Recruiter Goal (LTG) Elena will contract her pelvic floor while coughing to avoid leaking. LTG Duration 8 weeks Two Impairment HEP Short Term Goal (STG) Elena will be independent with a HEP for her continence and diastasis recti. STG Duration 4 weeks One Impairment Continence Short Term Goal (STG) Elena will laugh without leaking urine. STG Duration 4 weeks Longterm Goal (LTG) Elena will engage her pelvic floor so she can do jumping jacks without leaking. LTG Duration 8 weeks Assessment Summary Assessment Elena attends physical therapy with pelvic floor weakness, urinary incontinence , diastasis recti, and back pain. The pelvic floor weakness and incontinence are the major factors that we will be addressing, but overall core weakness is a concern given her symptoms. We was instructed in specific strengthening exercises that we will progress throughout her time in PT. Physical Therapy Plan Frequency and Duration Frequency of Treatment 1x/Week Duration of treatment (weeks) 8 Plan of Care Start Date 03/09/22 Plan of Care End Date 05/04/22 Therapeutic Interventions Therapeutic Interventions Gait Training,Home Exercise Program,Manual Therapy, Neuromuscular Re-education, Self-Care/Home Management, Taping,Therapeutic Activities, Therapeutic Exercises Modalities Biofeedback,Electric Stimulation Next Visit Focus/Plan Next Note Type Treatment Note Next Visit Plan Consider estim vs biofeedback, progress pelvic floor strengthening starting with supine or sitting.
--- NOTE | 2022-03-09 20:34 | PT.OPPOC ---
Physical, Occupational & Speech Therapy At [facility] Current Diagnoses Stress incontinence (female) (male) (03/09/22) Visit Care Team Role Provider Type Kiera Abdalla DO Attending Provider Physician Family Provider Primary Care Provider Referring Provider Specialty: Family Practice Address: [address] [place] [address], [id number] Email: [email or web address] Plan Of Care PT-OP-T Assessment and Plan Start: 03/07/22 20:04 Freq: Status: Active Protocol: Document 03/09/22 09:45 AMB (Rec: 03/15/22 16:00 AMB [id number]) Physical Therapy Assessment Rehab Potential Rehabilitation Potential Good Evaluation Complexity Number of Personal Factors/Comorbidities 1-2 Number of Body Systems Impaired 1-2 Clinical Presentation at Evaluation Stable Goals Three Impairment Pelvic floor strength Short Term Goal (STG) Elena will contract her pelvic floor for 10 seconds in standing. STG Duration 4 weeks Custodial Goal (LTG) Elena will contract her pelvic floor while coughing to avoid leaking. LTG Duration 8 weeks Two Impairment HEP Short Term Goal (STG) Elena will be independent with a HEP for her continence and diastasis recti. STG Duration 4 weeks One Impairment Continence Short Term Goal (STG) Elena will laugh without leaking urine. STG Duration 4 weeks Custodial Goal (LTG) Elena will engage her pelvic floor so she can do jumping jacks without leaking. LTG Duration 8 weeks Assessment Summary Assessment Elena attends physical therapy with pelvic floor weakness, urinary incontinence , diastasis recti, and back pain. The pelvic floor weakness and incontinence are the major factors that we will be addressing, but overall core weakness is a concern given her symptoms. We was instructed in specific strengthening exercises that we will progress throughout her time in PT. Physical Therapy Plan Frequency and Duration Frequency of Treatment 1x/Week Duration of treatment (weeks) 8 Plan of Care Start Date 03/09/22 Plan of Care End Date 05/04/22 Therapeutic Interventions Therapeutic Interventions Gait Training,Home Exercise Program,Manual Therapy, Neuromuscular Re-education, Self-Care/Home Management, Taping,Therapeutic Activities, Therapeutic Exercises Modalities Biofeedback,Electric Stimulation Next Visit Focus/Plan Next Note Type Treatment Note Next Visit Plan Consider estim vs biofeedback, progress pelvic floor strengthening starting with supine or sitting. Plan of Care Dates Plan of Care Start Date 03/09/22 Plan of Care End Date 05/04/22 Electronically Signed by: Shannan Morales, PT 03/15/223 If you are in agreement with this Plan of Care, please return a signed and dated copy. I have reviewed this Plan of Care and certify that the skilled therapy services above are required to meet the patient?s needs. Physician Signature Date Printed Name and Credentials Clinical Instructor Signature Printed Name and Credentials
--- NOTE | 2022-03-16 10:46 | PT.OTN ---
Current Diagnoses Stress incontinence (female) (male) (03/16/22) Physical Therapy Treatment Note PT-OP-A Visit Information Start: 03/07/22 20:04 Freq: Status: Active Protocol: Document 03/16/22 09:48 AMB (Rec: 03/16/22 10:22 AMB [id number]) Out-Patient Physical Therapy Visit Information Visit Information Visit Type Treatment Note Visit Start Time 09:45 Visit Stop Time 10:30 Total Visit Minutes 45 Visit Number 2 PT-OP-B Current Condition Start: 03/07/22 20:04 Freq: Status: Active Protocol: Document 03/09/22 09:06 AMB (Rec: 03/09/22 09:49 AMB [id number]) Current Condition History of Current Condition History of Current Condition 2003 started sx; . 3 vaginal 1 . No instrument assistance, but did have hyperemesis and leaked with vomiting. Crosses legs when coughing or sneezing, lifting weights and elliptical . Doesn't do the elliptical very fast or run because would leak, doesn't wear a pad. Back pain started in 2007 got worse in 2014. Has been kegels. Personal Factors Other Personal Factors That May Effect Kidney stone removal and stent Therapy/Recovery November 2021, hx migraines, anxiety. Back pain PT-OP-C Subjective Start: 03/07/22 20:04 Freq: Status: Active Protocol: Document 03/16/22 09:48 AMB (Rec: 03/16/22 10:22 AMB [id number]) OP-PT Subjective Patient Comments Patient Comments Pt has been trying to do exercises, PT-OP-I Pelvic Floor Start: 03/07/22 20:04 Freq: Status: Active Protocol: Document 03/11/22 12:42 AMB (Rec: 03/11/22 12:53 AMB [id number]) Pelvic Floor Assessment Urine Pelvic Floor Surgery Csection Leakage Size Small Leakage Cause Cough,Exercise,Sneeze Other Leakage Causes jumping, intercouse Contraction Ability Voluntary Contraction Weak Voluntary Relaxation Weak Manual Muscle Testing Left 2 Manual Muscle Testing Right 2 Manual Muscle Testing Anterior 2 Manual Muscle Testing Posterior 2 Muscle Endurance (Seconds) 4 Number of Quick Contractions In 10 3 Seconds Comments Pelvic Floor Comments frequent UTIs, kidney infections. Diastasis recti, 2 finger widths above and below umbilicus PT-OP-Q Treatments Start: 03/07/22 20:04 Freq: Status: Active Protocol: Document 03/16/22 09:48 AMB (Rec: 03/16/22 10:22 AMB [id number]) Therapeutic Exercises Sitting Exercises roll out Reps/Minutes 2x10 roll in Reps/Minutes 2x10 Manual Therapy Treatment Taping diastasis Type of Tape Kinesio Tape Comments 4 I strips in herringbone pattern PT-OP-T Assessment and Plan Start: 03/07/22 20:04 Freq: Status: Active Protocol: Document 03/16/22 09:48 AMB (Rec: 03/16/22 10:22 AMB [id number]) Physical Therapy Assessment Goals Three Impairment Pelvic floor strength Short Term Goal (STG) Elena will contract her pelvic floor for 10 seconds in standing. STG Duration 4 weeks Penitentiary Goal (LTG) Elena will contract her pelvic floor while coughing to avoid leaking. LTG Duration 8 weeks Two Impairment HEP Short Term Goal (STG) Elena will be independent with a HEP for her continence and diastasis recti. STG Duration 4 weeks One Impairment Continence Short Term Goal (STG) Elena will laugh without leaking urine. STG Duration 4 weeks Penitentiary Goal (LTG) Elena will engage her pelvic floor so she can do jumping jacks without leaking. LTG Duration 8 weeks Assessment Summary Assessment Pt doing well wiht roll ins and roll outs, does fatigue quickly. Encouraged in continuing with seated quick flicks and long holds. Physical Therapy Plan Next Visit Focus/Plan Next Note Type Treatment Note Next Visit Plan Consider estim vs biofeedback, progress pelvic floor strengthening starting with supine or sitting.
--- NOTE | 2022-03-29 15:02 | PT.OTN ---
Current Diagnoses Stress incontinence (female) (male) (03/29/22) Physical Therapy Treatment Note PT-OP-A Visit Information Start: 03/07/22 20:04 Freq: Status: Active Protocol: Document 03/29/22 12:59 AMB (Rec: 03/29/22 13:37 AMB [id number]) Out-Patient Physical Therapy Visit Information Visit Information Visit Type Treatment Note Visit Start Time 13:00 Visit Stop Time 13:45 Total Visit Minutes 45 Visit Number 3 PT-OP-B Current Condition Start: 03/07/22 20:04 Freq: Status: Active Protocol: Document 03/09/22 09:06 AMB (Rec: 03/09/22 09:49 AMB [id number]) Current Condition History of Current Condition History of Current Condition 2002 started sx; . 3 vaginal 1 . No instrument assistance, but did have hyperemesis and leaked with vomiting. Crosses legs when coughing or sneezing, lifting weights and elliptical . Doesn't do the elliptical very fast or run because would leak, doesn't wear a pad. Back pain started in 2007 got worse in 2014. Has been kegels. Personal Factors Other Personal Factors That May Effect Kidney stone removal and stent Therapy/Recovery November 2021, hx migraines, anxiety. Back pain PT-OP-C Subjective Start: 03/07/22 20:04 Freq: Status: Active Protocol: Document 03/29/22 12:59 AMB (Rec: 03/29/22 13:37 AMB [id number]) OP-PT Subjective Patient Comments Patient Comments Pt reports exercises going well, sx about the same. PT-OP-I Pelvic Floor Start: 03/07/22 20:04 Freq: Status: Active Protocol: Document 03/11/22 12:42 AMB (Rec: 03/11/22 12:53 AMB [id number]) Pelvic Floor Assessment Urine Pelvic Floor Surgery Csection Leakage Size Small Leakage Cause Cough,Exercise,Sneeze Other Leakage Causes jumping, intercouse Contraction Ability Voluntary Contraction Weak Voluntary Relaxation Weak Manual Muscle Testing Left 2 Manual Muscle Testing Right 2 Manual Muscle Testing Anterior 2 Manual Muscle Testing Posterior 2 Muscle Endurance (Seconds) 4 Number of Quick Contractions In 10 3 Seconds Comments Pelvic Floor Comments frequent UTIs, kidney infections. Diastasis recti, 2 finger widths above and below umbilicus PT-OP-Q Treatments Start: 03/07/22 20:04 Freq: Status: Active Protocol: Document 03/29/22 12:59 AMB (Rec: 03/29/22 13:37 AMB [id number]) Therapeutic Exercises Supine Exercises 1 Supine Exercise Name TA progression, TA, single leg lift Comments with pelvic floor, sheet around abs Sitting Exercises roll out Reps/Minutes 2x10 roll in Reps/Minutes 2x10 Neuro Re-Education Treatment Other Activities 1 Details sEMG Comments see assessment PT-OP-T Assessment and Plan Start: 03/07/22 20:04 Freq: Status: Active Protocol: Document 03/29/22 12:59 AMB (Rec: 03/29/22 13:37 AMB [id number]) Physical Therapy Assessment Goals Three Impairment Pelvic floor strength Short Term Goal (STG) Elena will contract her pelvic floor for 10 seconds in standing. STG Duration 4 weeks Alf Goal (LTG) Elena will contract her pelvic floor while coughing to avoid leaking. LTG Duration 8 weeks Two Impairment HEP Short Term Goal (STG) Elena will be independent with a HEP for her continence and diastasis recti. STG Duration 4 weeks One Impairment Continence Short Term Goal (STG) Elena will laugh without leaking urine. STG Duration 4 weeks Alf Goal (LTG) Elena will engage her pelvic floor so she can do jumping jacks without leaking. LTG Duration 8 weeks Assessment Summary Assessment Max 15 for quick flics, av 12. 5 for long holds resting 4-5. Pt did well with external support for abdominal support with exercise progression. Physical Therapy Plan Next Visit Focus/Plan Next Note Type Treatment Note Next Visit Plan progress pelvic floor strengthening starting with supine or sitting.
--- NOTE | 2022-04-22 09:49 | PT.OTN ---
Current Diagnoses Stress incontinence (female) (male) (04/22/22) Physical Therapy Treatment Note PT-OP-A Visit Information Start: 03/07/22 20:04 Freq: Status: Active Protocol: Document 04/22/22 09:02 AMB (Rec: 04/22/22 09:49 AMB [id number]) Out-Patient Physical Therapy Visit Information Visit Information Visit Type Treatment Note Visit Start Time 09:00 Visit Stop Time 09:45 Total Visit Minutes 45 Visit Number 4 PT-OP-B Current Condition Start: 03/07/22 20:04 Freq: Status: Active Protocol: Document 03/09/22 09:06 AMB (Rec: 03/09/22 09:49 AMB [id number]) Current Condition History of Current Condition History of Current Condition 2003 started sx; . 3 vaginal 1 . No instrument assistance, but did have hyperemesis and leaked with vomiting. Crosses legs when coughing or sneezing, lifting weights and elliptical . Doesn't do the elliptical very fast or run because would leak, doesn't wear a pad. Back pain started in 2007 got worse in 2014. Has been kegels. Personal Factors Other Personal Factors That May Effect Kidney stone removal and stent Therapy/Recovery November 2021, hx migraines, anxiety. Back pain PT-OP-C Subjective Start: 03/07/22 20:04 Freq: Status: Active Protocol: Document 04/22/22 09:02 AMB (Rec: 04/22/22 09:49 AMB [id number]) OP-PT Subjective Patient Comments Patient Comments Recovering from gall bladder surgery. PT-OP-I Pelvic Floor Start: 03/07/22 20:04 Freq: Status: Active Protocol: Document 03/11/22 12:42 AMB (Rec: 03/11/22 12:53 AMB [id number]) Pelvic Floor Assessment Urine Pelvic Floor Surgery Csection Leakage Size Small Leakage Cause Cough,Exercise,Sneeze Other Leakage Causes jumping, intercouse Contraction Ability Voluntary Contraction Weak Voluntary Relaxation Weak Manual Muscle Testing Left 2 Manual Muscle Testing Right 2 Manual Muscle Testing Anterior 2 Manual Muscle Testing Posterior 2 Muscle Endurance (Seconds) 4 Number of Quick Contractions In 10 3 Seconds Comments Pelvic Floor Comments frequent UTIs, kidney infections. Diastasis recti, 2 finger widths above and below umbilicus PT-OP-Q Treatments Start: 03/07/22 20:04 Freq: Status: Active Protocol: Document 04/22/22 09:02 AMB (Rec: 04/22/22 09:49 AMB [id number]) Therapeutic Exercises Supine Exercises 1 Supine Exercise Name TA progression, TA, single leg lift Comments with pelvic floor, sheet around abs Sitting Exercises roll out Reps/Minutes 2x10 roll in Reps/Minutes 2x10 Standing Exercises mini squats Reps/Minutes 10 1 Standing Exercise Name quick flicks in standing Reps/Minutes 10 PT-OP-T Assessment and Plan Start: 03/07/22 20:04 Freq: Status: Active Protocol: Document 04/22/22 09:02 AMB (Rec: 04/22/22 09:49 AMB [id number]) Physical Therapy Assessment Goals Three Impairment Pelvic floor strength Short Term Goal (STG) Elena will contract her pelvic floor for 10 seconds in standing. STG Duration 4 weeks Nursing Home Goal (LTG) Elena will contract her pelvic floor while coughing to avoid leaking. LTG Duration 8 weeks Two Impairment HEP Short Term Goal (STG) Elena will be independent with a HEP for her continence and diastasis recti. STG Duration 4 weeks One Impairment Continence Short Term Goal (STG) Elena will laugh without leaking urine. STG Duration 4 weeks Sharepoint Application Architect Goal (LTG) Elena will engage her pelvic floor so she can do jumping jacks without leaking. LTG Duration 8 weeks Assessment Summary Assessment Elena is still recovering from gall bladder surgery, so did not progress extensively, but did encourage more upright mini squats etc. Physical Therapy Plan Frequency and Duration Frequency of Treatment 1x/Week Duration of treatment (weeks) 8 Plan of Care Start Date 03/09/22 Plan of Care End Date 05/04/22 Therapeutic Interventions Therapeutic Interventions Gait Training,Home Exercise Program,Manual Therapy, Neuromuscular Re-education, Self-Care/Home Management, Taping,Therapeutic Activities, Therapeutic Exercises Modalities Biofeedback,Electric Stimulation Next Visit Focus/Plan Next Note Type Treatment Note Next Visit Plan progress pelvic floor strengthening starting with supine or sitting.
--- NOTE | 2022-04-25 10:23 | PT.OTN ---
Current Diagnoses Stress incontinence (female) (male) (04/25/22) Physical Therapy Treatment Note PT-OP-A Visit Information Start: 03/07/22 20:04 Freq: Status: Active Protocol: Document 04/25/22 09:51 AMB (Rec: 04/25/22 10:22 AMB [id number]) Out-Patient Physical Therapy Visit Information Visit Information Visit Type Treatment Note Visit Start Time 09:45 Visit Stop Time 10:30 Total Visit Minutes 45 Visit Number 5 PT-OP-B Current Condition Start: 03/07/22 20:04 Freq: Status: Active Protocol: Document 03/09/22 09:06 AMB (Rec: 03/09/22 09:49 AMB [id number]) Current Condition History of Current Condition History of Current Condition 2002 started sx; . 3 vaginal 1 . No instrument assistance, but did have hyperemesis and leaked with vomiting. Crosses legs when coughing or sneezing, lifting weights and elliptical . Doesn't do the elliptical very fast or run because would leak, doesn't wear a pad. Back pain started in 2007 got worse in 2014. Has been kegels. Personal Factors Other Personal Factors That May Effect Kidney stone removal and stent Therapy/Recovery November 2021, hx migraines, anxiety. Back pain PT-OP-C Subjective Start: 03/07/22 20:04 Freq: Status: Active Protocol: Document 04/25/22 09:51 AMB (Rec: 04/25/22 10:22 AMB [id number]) OP-PT Subjective Patient Comments Patient Comments Humza returns to PT, standing is challenging with HEP. PT-OP-I Pelvic Floor Start: 03/07/22 20:04 Freq: Status: Active Protocol: Document 03/11/22 12:42 AMB (Rec: 03/11/22 12:53 AMB [id number]) Pelvic Floor Assessment Urine Pelvic Floor Surgery Csection Leakage Size Small Leakage Cause Cough,Exercise,Sneeze Other Leakage Causes jumping, intercouse Contraction Ability Voluntary Contraction Weak Voluntary Relaxation Weak Manual Muscle Testing Left 2 Manual Muscle Testing Right 2 Manual Muscle Testing Anterior 2 Manual Muscle Testing Posterior 2 Muscle Endurance (Seconds) 4 Number of Quick Contractions In 10 3 Seconds Comments Pelvic Floor Comments frequent UTIs, kidney infections. Diastasis recti, 2 finger widths above and below umbilicus PT-OP-Q Treatments Start: 03/07/22 20:04 Freq: Status: Active Protocol: Document 04/25/22 09:51 AMB (Rec: 04/25/22 10:22 AMB [id number]) Therapeutic Exercises Standing Exercises long hold in standing Standing Exercise Name WBOS, stride stance Comments multiple foot positions mini squats Reps/Minutes 10 1 Standing Exercise Name quick flicks in standing Reps/Minutes 10 Other Exercises quadruped Other Exercise Name long holds and quick flicks Reps/Minutes 5 min Comments fatiguing PT-OP-T Assessment and Plan Start: 03/07/22 20:04 Freq: Status: Active Protocol: Document 04/25/22 09:51 AMB (Rec: 04/25/22 10:22 AMB [id number]) Physical Therapy Assessment Goals Three Impairment Pelvic floor strength Short Term Goal (STG) Elena will contract her pelvic floor for 10 seconds in standing. STG Duration 4 weeks Performance Engineer Goal (LTG) Elena will contract her pelvic floor while coughing to avoid leaking. LTG Duration 8 weeks Two Impairment HEP Short Term Goal (STG) Elena will be independent with a HEP for her continence and diastasis recti. STG Duration 4 weeks One Impairment Continence Short Term Goal (STG) Elena will laugh without leaking urine. STG Duration 4 weeks Performance Engineer Goal (LTG) Elena will engage her pelvic floor so she can do jumping jacks without leaking. LTG Duration 8 weeks Assessment Summary Assessment Humza struggled with standing exercises but overall is doing ok. Quadrutimoteo gets fatigued as well. Physical Therapy Plan Frequency and Duration Frequency of Treatment 1x/Week Duration of treatment (weeks) 8 Plan of Care Start Date 03/09/22 Plan of Care End Date 05/04/22 Therapeutic Interventions Therapeutic Interventions Gait Training,Home Exercise Program,Manual Therapy, Neuromuscular Re-education, Self-Care/Home Management, Taping,Therapeutic Activities, Therapeutic Exercises Modalities Biofeedback,Electric Stimulation
--- NOTE | 2022-05-17 11:20 | PT.OTN ---
Current Diagnoses Stress incontinence (female) (male) (05/17/22) Physical Therapy Treatment Note PT-OP-A Visit Information Start: 03/07/22 20:04 Freq: Status: Active Protocol: Document 05/17/22 09:03 AMB (Rec: 05/17/22 09:47 AMB [id number]) Out-Patient Physical Therapy Visit Information Visit Information Visit Type Treatment Note Visit Start Time 09:00 Visit Stop Time 09:45 Total Visit Minutes 45 Visit Number 6 PT-OP-B Current Condition Start: 03/07/22 20:04 Freq: Status: Active Protocol: Document 03/09/22 09:06 AMB (Rec: 03/09/22 09:49 AMB [id number]) Current Condition History of Current Condition History of Current Condition 2002 started sx; . 3 vaginal 1 . No instrument assistance, but did have hyperemesis and leaked with vomiting. Crosses legs when coughing or sneezing, lifting weights and elliptical . Doesn't do the elliptical very fast or run because would leak, doesn't wear a pad. Back pain started in 2007 got worse in 2014. Has been kegels. Personal Factors Other Personal Factors That May Effect Kidney stone removal and stent Therapy/Recovery November 2021, hx migraines, anxiety. Back pain PT-OP-C Subjective Start: 03/07/22 20:04 Freq: Status: Active Protocol: Document 05/17/22 09:03 AMB (Rec: 05/17/22 09:47 AMB [id number]) OP-PT Subjective Patient Comments Patient Comments Humza has had a hard time getting to her exercises PT-OP-I Pelvic Floor Start: 03/07/22 20:04 Freq: Status: Active Protocol: Document 03/11/22 12:42 AMB (Rec: 03/11/22 12:53 AMB [id number]) Pelvic Floor Assessment Urine Pelvic Floor Surgery Csection Leakage Size Small Leakage Cause Cough,Exercise,Sneeze Other Leakage Causes jumping, intercouse Contraction Ability Voluntary Contraction Weak Voluntary Relaxation Weak Manual Muscle Testing Left 2 Manual Muscle Testing Right 2 Manual Muscle Testing Anterior 2 Manual Muscle Testing Posterior 2 Muscle Endurance (Seconds) 4 Number of Quick Contractions In 10 3 Seconds Comments Pelvic Floor Comments frequent UTIs, kidney infections. Diastasis recti, 2 finger widths above and below umbilicus PT-OP-Q Treatments Start: 03/07/22 20:04 Freq: Status: Active Protocol: Document 05/17/22 09:03 AMB (Rec: 05/17/22 09:47 AMB [id number]) Therapeutic Exercises Supine Exercises 2 Supine Exercise Name bridge Comments with TA and pelvic floor Standing Exercises long hold in standing Standing Exercise Name WBOS, stride stance Comments multiple foot positions mini squats Reps/Minutes 10 Other Exercises quadruped Other Exercise Name long holds and quick flicks Reps/Minutes 5 min Comments fatiguing PT-OP-T Assessment and Plan Start: 03/07/22 20:04 Freq: Status: Active Protocol: Document 05/17/22 09:03 AMB (Rec: 05/17/22 09:47 AMB [id number]) Physical Therapy Assessment Goals Three Impairment Pelvic floor strength Short Term Goal (STG) Elena will contract her pelvic floor for 10 seconds in standing. STG Duration 4 weeks Sheather Goal (LTG) Elena will contract her pelvic floor while coughing to avoid leaking. LTG Duration MET Two Impairment HEP Short Term Goal (STG) Elena will be independent with a HEP for her continence and diastasis recti. STG Duration 4 weeks One Impairment Continence Short Term Goal (STG) Elena will laugh without leaking urine. STG Duration MET Sheather Goal (LTG) Elena will engage her pelvic floor so she can do jumping jacks without leaking. LTG Duration 8 weeks Assessment Summary Assessment Elnea has struggled fitting her exercises into her life. However, she is noticing better control with sneezing, but activities like jumping would still cause leaking. She has met two of her goals, but would continue to benefit from physical therapy to progress her exercises so that she can return to exercise without leaking. Physical Therapy Plan Frequency and Duration Frequency of Treatment 1x/Week Duration of treatment (weeks) 8 Plan of Care Start Date 05/17/22 Plan of Care End Date 07/12/22 Therapeutic Interventions Therapeutic Interventions Gait Training,Home Exercise Program,Manual Therapy, Neuromuscular Re-education, Self-Care/Home Management, Taping,Therapeutic Activities, Therapeutic Exercises Modalities Biofeedback,Electric Stimulation Next Visit Focus/Plan Next Note Type Treatment Note Next Visit Plan progress pelvic floor strengthening progressing into standing, movement
--- NOTE | 2022-05-17 11:21 | PT.OPPOC ---
Physical, Occupational & Speech Therapy At [facility] Current Diagnoses Stress incontinence (female) (male) (05/17/22) Visit Care Team Role Provider Type Kiera Abdalla DO Attending Provider Physician Family Provider Primary Care Provider Referring Provider Specialty: Family Practice Address: [address] [place] [address], [id number] Email: [email or web address] Plan Of Care PT-OP-T Assessment and Plan Start: 03/07/22 20:04 Freq: Status: Active Protocol: Document 05/17/22 09:03 AMB (Rec: 05/17/22 09:47 AMB [id number]) Physical Therapy Assessment Goals Three Impairment Pelvic floor strength Short Term Goal (STG) Elena will contract her pelvic floor for 10 seconds in standing. STG Duration 4 weeks Microscopist Goal (LTG) Elena will contract her pelvic floor while coughing to avoid leaking. LTG Duration MET Two Impairment HEP Short Term Goal (STG) Elena will be independent with a HEP for her continence and diastasis recti. STG Duration 4 weeks One Impairment Continence Short Term Goal (STG) Elena will laugh without leaking urine. STG Duration MET Senior Care Goal (LTG) Elena will engage her pelvic floor so she can do jumping jacks without leaking. LTG Duration 8 weeks Assessment Summary Assessment Elena has struggled fitting her exercises into her life. However, she is noticing better control with sneezing, but activities like jumping would still cause leaking. She has met two of her goals, but would continue to benefit from physical therapy to progress her exercises so that she can return to exercise without leaking. Physical Therapy Plan Frequency and Duration Frequency of Treatment 1x/Week Duration of treatment (weeks) 8 Plan of Care Start Date 05/17/22 Plan of Care End Date 07/12/22 Therapeutic Interventions Therapeutic Interventions Gait Training,Home Exercise Program,Manual Therapy, Neuromuscular Re-education, Self-Care/Home Management, Taping,Therapeutic Activities, Therapeutic Exercises Modalities Biofeedback,Electric Stimulation Next Visit Focus/Plan Next Note Type Treatment Note Next Visit Plan progress pelvic floor strengthening progressing into standing, movement Plan of Care Dates Plan of Care Start Date 05/17/22 Plan of Care End Date 07/12/22 Electronically Signed by: Shannan Morales, PT 05/17/22 1121 If you are in agreement with this Plan of Care, please return a signed and dated copy. I have reviewed this Plan of Care and certify that the skilled therapy services above are required to meet the patient?s needs. Physician Signature Date Printed Name and Credentials Clinical Instructor Signature Printed Name and Credentials
--- NOTE | 2022-06-20 10:48 | PT.OTN ---
Current Diagnoses Stress incontinence (female) (male) (06/20/22) Physical Therapy Treatment Note PT-OP-A Visit Information Start: 03/07/22 20:04 Freq: Status: Active Protocol: Document 06/20/22 09:45 AMB (Rec: 06/20/22 10:47 AMB [id number]) Out-Patient Physical Therapy Visit Information Visit Information Visit Type Treatment Note Visit Start Time 09:45 Visit Stop Time 10:30 Total Visit Minutes 45 Visit Number 7 PT-OP-B Current Condition Start: 03/07/22 20:04 Freq: Status: Active Protocol: Document 03/09/22 09:06 AMB (Rec: 03/09/22 09:49 AMB [id number]) Current Condition History of Current Condition History of Current Condition 2003 started sx; . 3 vaginal 1 . No instrument assistance, but did have hyperemesis and leaked with vomiting. Crosses legs when coughing or sneezing, lifting weights and elliptical . Doesn't do the elliptical very fast or run because would leak, doesn't wear a pad. Back pain started in 2007 got worse in 2014. Has been kegels. Personal Factors Other Personal Factors That May Effect Kidney stone removal and stent Therapy/Recovery November 2021, hx migraines, anxiety. Back pain PT-OP-C Subjective Start: 03/07/22 20:04 Freq: Status: Active Protocol: Document 06/20/22 09:45 AMB (Rec: 06/20/22 10:47 AMB [id number]) OP-PT Subjective Patient Comments Patient Comments Sneezes with full bladder are still problematic as well as exercises. 3-4 sneezes in a row are problematic. PT-OP-I Pelvic Floor Start: 03/07/22 20:04 Freq: Status: Active Protocol: Document 03/11/22 12:42 AMB (Rec: 03/11/22 12:53 AMB [id number]) Pelvic Floor Assessment Urine Pelvic Floor Surgery Csection Leakage Size Small Leakage Cause Cough,Exercise,Sneeze Other Leakage Causes jumping, intercouse Contraction Ability Voluntary Contraction Weak Voluntary Relaxation Weak Manual Muscle Testing Left 2 Manual Muscle Testing Right 2 Manual Muscle Testing Anterior 2 Manual Muscle Testing Posterior 2 Muscle Endurance (Seconds) 4 Number of Quick Contractions In 10 3 Seconds Comments Pelvic Floor Comments frequent UTIs, kidney infections. Diastasis recti, 2 finger widths above and below umbilicus PT-OP-Q Treatments Start: 03/07/22 20:04 Freq: Status: Active Protocol: Document 06/20/22 09:45 AMB (Rec: 06/20/22 10:47 AMB [id number]) Gym Equipment Shuttle Recovery Bilateral Squats Details squats and jumps Resistance 50 Reps/Time 2x10 Therapeutic Exercises Supine Exercises 2 Supine Exercise Name bridge Comments with TA and pelvic floor Standing Exercises long hold in standing Standing Exercise Name WBOS, stride stance Comments multiple foot positions mini squats Reps/Minutes 10 Other Exercises quadruped Other Exercise Name long holds and quick flicks Reps/Minutes 5 min Comments fatiguing PT-OP-T Assessment and Plan Start: 03/07/22 20:04 Freq: Status: Active Protocol: Document 06/20/22 09:45 AMB (Rec: 06/20/22 10:47 AMB [id number]) Physical Therapy Assessment Goals Three Impairment Pelvic floor strength Short Term Goal (STG) Elena will contract her pelvic floor for 10 seconds in standing. STG Duration 4 weeks Testing Director Goal (LTG) Elena will contract her pelvic floor while coughing to avoid leaking. LTG Duration MET Two Impairment HEP Short Term Goal (STG) Elena will be independent with a HEP for her continence and diastasis recti. STG Duration 4 weeks One Impairment Continence Short Term Goal (STG) Elena will laugh without leaking urine. STG Duration MET Mcfp Goal (LTG) Elena will engage her pelvic floor so she can do jumping jacks without leaking. LTG Duration 8 weeks Assessment Summary Assessment Elena is doing better with her exercises but continues to have leaks with bad sneezes and jumps. Tolerated more repetitions today but continues to need to progress strengthening. Physical Therapy Plan Frequency and Duration Frequency of Treatment 1x/Week Duration of treatment (weeks) 8 Plan of Care Start Date 05/17/22 Plan of Care End Date 07/12/22 Therapeutic Interventions Therapeutic Interventions Gait Training,Home Exercise Program,Manual Therapy, Neuromuscular Re-education, Self-Care/Home Management, Taping,Therapeutic Activities, Therapeutic Exercises Modalities Biofeedback,Electric Stimulation Next Visit Focus/Plan Next Note Type Treatment Note Next Visit Plan progress pelvic floor strengthening progressing into standing, movement
--- NOTE | 2022-07-04 10:39 | PT.OTN ---
Current Diagnoses Stress incontinence (female) (male) (07/04/22) Physical Therapy Treatment Note PT-OP-A Visit Information Start: 03/07/22 20:04 Freq: Status: Active Protocol: Document 07/04/22 09:45 AMB (Rec: 07/04/22 10:38 AMB [id number]) Out-Patient Physical Therapy Visit Information Visit Information Visit Type Treatment Note Visit Start Time 09:45 Visit Stop Time 10:30 Total Visit Minutes 45 Visit Number 8 PT-OP-B Current Condition Start: 03/07/22 20:04 Freq: Status: Active Protocol: Document 03/09/22 09:06 AMB (Rec: 03/09/22 09:49 AMB [id number]) Current Condition History of Current Condition History of Current Condition 2003 started sx; . 3 vaginal 1 . No instrument assistance, but did have hyperemesis and leaked with vomiting. Crosses legs when coughing or sneezing, lifting weights and elliptical . Doesn't do the elliptical very fast or run because would leak, doesn't wear a pad. Back pain started in 2007 got worse in 2014. Has been kegels. Personal Factors Other Personal Factors That May Effect Kidney stone removal and stent Therapy/Recovery November 2021, hx migraines, anxiety. Back pain PT-OP-C Subjective Start: 03/07/22 20:04 Freq: Status: Active Protocol: Document 07/04/22 09:45 AMB (Rec: 07/04/22 10:38 AMB [id number]) OP-PT Subjective Patient Comments Patient Comments Jumping continues to be quite challenging. PT-OP-I Pelvic Floor Start: 03/07/22 20:04 Freq: Status: Active Protocol: Document 03/11/22 12:42 AMB (Rec: 03/11/22 12:53 AMB [id number]) Pelvic Floor Assessment Urine Pelvic Floor Surgery Csection Leakage Size Small Leakage Cause Cough,Exercise,Sneeze Other Leakage Causes jumping, intercouse Contraction Ability Voluntary Contraction Weak Voluntary Relaxation Weak Manual Muscle Testing Left 2 Manual Muscle Testing Right 2 Manual Muscle Testing Anterior 2 Manual Muscle Testing Posterior 2 Muscle Endurance (Seconds) 4 Number of Quick Contractions In 10 3 Seconds Comments Pelvic Floor Comments frequent UTIs, kidney infections. Diastasis recti, 2 finger widths above and below umbilicus PT-OP-Q Treatments Start: 03/07/22 20:04 Freq: Status: Active Protocol: Document 07/04/22 09:45 AMB (Rec: 07/04/22 10:38 AMB [id number]) Gym Equipment Shuttle Recovery Bilateral Squats Details squats and jumps Resistance 50 Reps/Time 2x10 Shuttle Rebound 1 Exercise Details heel lift Reps/Duration 2x10 Comments challenging Therapeutic Exercises Standing Exercises long hold in standing Standing Exercise Name WBOS, stride stance Comments multiple foot positions mini squats Reps/Minutes 10 1 Standing Exercise Name squat single leg drives Reps/Minutes 10x2 Comments #4 t band Other Exercises quadruped Other Exercise Name long holds and quick flicks Reps/Minutes 5 min Comments fatiguing PT-OP-T Assessment and Plan Start: 03/07/22 20:04 Freq: Status: Active Protocol: Document 07/04/22 09:45 AMB (Rec: 07/04/22 10:38 AMB [id number]) Physical Therapy Assessment Goals Three Impairment Pelvic floor strength Short Term Goal (STG) Elena will contract her pelvic floor for 10 seconds in standing. STG Duration 4 weeks Orthotist/Prosthetist Goal (LTG) Elena will contract her pelvic floor while coughing to avoid leaking. LTG Duration MET Two Impairment HEP Short Term Goal (STG) Elena will be independent with a HEP for her continence and diastasis recti. STG Duration 4 weeks One Impairment Continence Short Term Goal (STG) Elena will laugh without leaking urine. STG Duration MET Assisted Goal (LTG) Elena will engage her pelvic floor so she can do jumping jacks without leaking. LTG Duration 8 weeks Assessment Summary Assessment Humza tolerated an increased challenge today with new exercises, given single leg squat rotary drives as HEP. Physical Therapy Plan Frequency and Duration Frequency of Treatment 1x/Week Duration of treatment (weeks) 8 Plan of Care Start Date 05/17/22 Plan of Care End Date 07/12/22 Therapeutic Interventions Therapeutic Interventions Gait Training,Home Exercise Program,Manual Therapy, Neuromuscular Re-education, Self-Care/Home Management, Taping,Therapeutic Activities, Therapeutic Exercises Modalities Biofeedback,Electric Stimulation Next Visit Focus/Plan Next Note Type Treatment Note Next Visit Plan progress pelvic floor strengthening progressing into standing, movement
--- NOTE | 2022-07-26 15:05 | PT.OTN ---
Current Diagnoses Stress incontinence (female) (male) (07/26/22) Physical Therapy Treatment Note PT-OP-A Visit Information Start: 03/07/22 20:04 Freq: Status: Active Protocol: Document 07/26/22 10:36 AMB (Rec: 07/26/22 11:14 AMB [id number]) Out-Patient Physical Therapy Visit Information Visit Information Visit Type Treatment Note Visit Start Time 09:45 Visit Stop Time 10:30 Total Visit Minutes 45 Visit Number 9 PT-OP-B Current Condition Start: 03/07/22 20:04 Freq: Status: Active Protocol: Document 03/09/22 09:06 AMB (Rec: 03/09/22 09:49 AMB [id number]) Current Condition History of Current Condition History of Current Condition 2002 started sx; . 3 vaginal 1 . No instrument assistance, but did have hyperemesis and leaked with vomiting. Crosses legs when coughing or sneezing, lifting weights and elliptical . Doesn't do the elliptical very fast or run because would leak, doesn't wear a pad. Back pain started in 2007 got worse in 2014. Has been kegels. Personal Factors Other Personal Factors That May Effect Kidney stone removal and stent Therapy/Recovery November 2021, hx migraines, anxiety. Back pain PT-OP-C Subjective Start: 03/07/22 20:04 Freq: Status: Active Protocol: Document 07/28/22 15:02 AMB (Rec: 07/28/22 15:04 AMB [id number]) OP-PT Subjective Patient Comments Patient Comments Elena notes she feels she has been about the same, it was difficult to do the band exercise, as her kids stole her band. PT-OP-I Pelvic Floor Start: 03/07/22 20:04 Freq: Status: Active Protocol: Document 03/11/22 12:42 AMB (Rec: 03/11/22 12:53 AMB [id number]) Pelvic Floor Assessment Urine Pelvic Floor Surgery Csection Leakage Size Small Leakage Cause Cough,Exercise,Sneeze Other Leakage Causes jumping, intercouse Contraction Ability Voluntary Contraction Weak Voluntary Relaxation Weak Manual Muscle Testing Left 2 Manual Muscle Testing Right 2 Manual Muscle Testing Anterior 2 Manual Muscle Testing Posterior 2 Muscle Endurance (Seconds) 4 Number of Quick Contractions In 10 3 Seconds Comments Pelvic Floor Comments frequent UTIs, kidney infections. Diastasis recti, 2 finger widths above and below umbilicus PT-OP-Q Treatments Start: 03/07/22 20:04 Freq: Status: Active Protocol: Document 07/26/22 10:30 AMB (Rec: 07/28/22 15:04 AMB [id number]) Gym Equipment Shuttle Rebound 1 Exercise Details heel lift Reps/Duration 2x10 Comments challenging Therapeutic Exercises Supine Exercises 2 Supine Exercise Name bridge Comments with TA and pelvic floor Sitting Exercises roll out Reps/Minutes 2x10 roll in Reps/Minutes 2x10 Standing Exercises long hold in standing Standing Exercise Name WBOS, stride stance Comments multiple foot positions mini squats Reps/Minutes 10 1 Standing Exercise Name squat single leg drives Reps/Minutes 10x2 Comments #4 t band Other Exercises quadruped Other Exercise Name long holds and quick flicks Reps/Minutes 5 min Comments fatiguing PT-OP-T Assessment and Plan Start: 03/07/22 20:04 Freq: Status: Active Protocol: Document 07/26/22 10:36 AMB (Rec: 07/26/22 11:14 AMB [id number]) Physical Therapy Assessment Goals Three Impairment Pelvic floor strength Short Term Goal (STG) Elena will contract her pelvic floor for 10 seconds in standing. STG Duration MET Roll Line Operator Goal (LTG) Elena will contract her pelvic floor while coughing to avoid leaking. LTG Duration MET Two Impairment HEP Short Term Goal (STG) Elena will be independent with a HEP for her continence and diastasis recti. STG Duration 4 weeks One Impairment Continence Short Term Goal (STG) Elena will laugh without leaking urine. STG Duration MET Chcf Goal (LTG) Elena will engage her pelvic floor so she can do jumping jacks without leaking: Fatigues very quickly LTG Duration 8 weeks Assessment Summary Assessment Elena has improved since initiating physical therapy in that she does not leak with cough/sneeze at this point. However she continues to leak urine with jumping, which is important to her for exercise and to be on the trampoline with her kids. She has had some difficulty being consistent with her exercises, but overall is doing well and should continue to benefit from PT. Physical Therapy Plan Frequency and Duration Frequency of Treatment 1x/Week Duration of treatment (weeks) 8 Plan of Care Start Date 07/26/22 Plan of Care End Date 09/20/22 Therapeutic Interventions Therapeutic Interventions Gait Training,Home Exercise Program,Manual Therapy, Neuromuscular Re-education, Self-Care/Home Management, Taping,Therapeutic Activities, Therapeutic Exercises Modalities Biofeedback,Electric Stimulation Next Visit Focus/Plan Next Note Type Treatment Note Next Visit Plan progress pelvic floor strengthening progressing into standing, movement, jumping
--- NOTE | 2022-07-26 15:06 | PT.OPPOC ---
Physical, Occupational & Speech Therapy At [facility] Current Diagnoses Stress incontinence (female) (male) (07/26/22) Visit Care Team Role Provider Type Kiera Abdalla DO Attending Provider Physician Family Provider Primary Care Provider Referring Provider Specialty: Family Practice Address: [address] [place] [address], [id number] Email: [email or web address] Plan Of Care PT-OP-T Assessment and Plan Start: 03/07/22 20:04 Freq: Status: Active Protocol: Document 07/26/22 10:36 AMB (Rec: 07/26/22 11:14 AMB [id number]) Physical Therapy Assessment Goals Three Impairment Pelvic floor strength Short Term Goal (STG) Elena will contract her pelvic floor for 10 seconds in standing. STG Duration MET Cartography/Mapping Technician Goal (LTG) Elena will contract her pelvic floor while coughing to avoid leaking. LTG Duration MET Two Impairment HEP Short Term Goal (STG) Elena will be independent with a HEP for her continence and diastasis recti. STG Duration 4 weeks One Impairment Continence Short Term Goal (STG) Elena will laugh without leaking urine. STG Duration MET Cartography/Mapping Technician Goal (LTG) Elena will engage her pelvic floor so she can do jumping jacks without leaking: Fatigues very quickly LTG Duration 8 weeks Assessment Summary Assessment Elena has improved since initiating physical therapy in that she does not leak with cough/sneeze at this point. However she continues to leak urine with jumping, which is important to her for exercise and to be on the trampoline with her kids. She has had some difficulty being consistent with her exercises, but overall is doing well and should continue to benefit from PT. Physical Therapy Plan Frequency and Duration Frequency of Treatment 1x/Week Duration of treatment (weeks) 8 Plan of Care Start Date 07/26/22 Plan of Care End Date 09/20/22 Therapeutic Interventions Therapeutic Interventions Gait Training,Home Exercise Program,Manual Therapy, Neuromuscular Re-education, Self-Care/Home Management, Taping,Therapeutic Activities, Therapeutic Exercises Modalities Biofeedback,Electric Stimulation Next Visit Focus/Plan Next Note Type Treatment Note Next Visit Plan progress pelvic floor strengthening progressing into standing, movement, jumping Plan of Care Dates Plan of Care Start Date 07/26/22 Plan of Care End Date 09/20/22 Electronically Signed by: Shannan Morales, PT 07/28/22 [id number] If you are in agreement with this Plan of Care, please return a signed and dated copy. I have reviewed this Plan of Care and certify that the skilled therapy services above are required to meet the patient?s needs. Physician Signature Date Printed Name and Credentials Clinical Instructor Signature Printed Name and Credentials
--- NOTE | 2023-01-11 15:49 | PT.OPDS ---
Current Diagnoses Stress incontinence (female) (male) (07/26/22) Visit Care Team Role Provider Type Kiera Abdalla DO Attending Provider Physician Family Provider Primary Care Provider Referring Provider Specialty: Family Practice Address: [address] [place] [address], [facility] [place], [facility] Email: [email or web address] Visit Number Visit Number 9 Discharge Summary PT-OP-B Current Condition Start: 03/07/22 20:04 Freq: Status: Active Protocol: Document 03/09/22 09:06 AMB (Rec: 03/09/22 09:49 AMB [id number]) Current Condition History of Current Condition History of Current Condition 2002 started sx; . 3 vaginal 1 . No instrument assistance, but did have hyperemesis and leaked with vomiting. Crosses legs when coughing or sneezing, lifting weights and elliptical . Doesn't do the elliptical very fast or run because would leak, doesn't wear a pad. Back pain started in 2007 got worse in 2014. Has been kegels. Personal Factors Other Personal Factors That May Effect Kidney stone removal and stent Therapy/Recovery November 2021, hx migraines, anxiety. Back pain PT-OP-C Subjective Start: 03/07/22 20:04 Freq: Status: Active Protocol: Document 07/28/22 15:02 AMB (Rec: 07/28/22 15:04 AMB [id number]) OP-PT Subjective Patient Comments Patient Comments Elena notes she feels she has been about the same, it was difficult to do the band exercise, as her kids stole her band. PT-OP-I Pelvic Floor Start: 03/07/22 20:04 Freq: Status: Active Protocol: Document 03/11/22 12:42 AMB (Rec: 03/11/22 12:53 AMB [id number]) Pelvic Floor Assessment Urine Pelvic Floor Surgery Csection Leakage Size Small Leakage Cause Cough,Exercise,Sneeze Other Leakage Causes jumping, intercouse Contraction Ability Voluntary Contraction Weak Voluntary Relaxation Weak Manual Muscle Testing Left 2 Manual Muscle Testing Right 2 Manual Muscle Testing Anterior 2 Manual Muscle Testing Posterior 2 Muscle Endurance (Seconds) 4 Number of Quick Contractions In 10 3 Seconds Comments Pelvic Floor Comments frequent UTIs, kidney infections. Diastasis recti, 2 finger widths above and below umbilicus PT-OP-T Assessment and Plan Start: 03/07/22 20:04 Freq: Status: Active Protocol: Document 01/11/23 15:48 AMB (Rec: 01/11/23 15:49 AMB [id number]) Physical Therapy Assessment Goals Three Impairment Pelvic floor strength Short Term Goal (STG) Elena will contract her pelvic floor for 10 seconds in standing. STG Duration MET Sales Store Checker Goal (LTG) Elena will contract her pelvic floor while coughing to avoid leaking. LTG Duration MET Two Impairment HEP Short Term Goal (STG) Elena will be independent with a HEP for her continence and diastasis recti. STG Duration 4 weeks One Impairment Continence Short Term Goal (STG) Elena will laugh without leaking urine. STG Duration MET Retirement Goal (LTG) Elena will engage her pelvic floor so she can do jumping jacks without leaking: Fatigues very quickly LTG Duration 8 weeks Assessment Summary Assessment At last visit, Elena has improved since initiating physical therapy in that she does not leak with cough/ sneeze at this point. However she continues to leak urine with jumping, which is important to her for exercise and to be on the trampoline with her kids. She has had some difficulty being consistent with her exercises, she canceled her last two visits of physicla therapy and is therefore discharged. Physical Therapy Plan Discharge Physical Therapy Discharge Reasons Patient Request
== END 2023-01-12 14:07 | disposition home or self-care (01) ==
LOC: PHYS 10:30
PROVIDERS: Family Provider Family Medicine; PCP Family Medicine; Referring Provider Family Medicine; Visit Provider Family Medicine
DX: N39.3 Stress incontinence (female) (male) (principal)
CPT/HCPCS: 97110; 97112; 97161

== ENCOUNTER → 2023-06-09 11:12 | Outpatient (CLI) | payer OTHER, MEDICAID, SELFPAY ==
--- NOTE | 2023-06-09 | DI.MG.S_ITS ---
BILATERAL DIGITAL SCREENING MAMMOGRAM 3D/2D WITH CAD: 06/09/2023 CLINICAL: Routine screening. Family history of breast cancer. Comparison is made to exam dated: 03/04/2022 mammogram - [facility]. Both breasts are heterogeneously dense, which may obscure small masses (category c / 51-75% glandular tissue). Current study was also evaluated with a Computer Aided Detection (CAD) system. No significant masses, calcifications, or other findings are seen in either breast. There has been no significant interval change. IMPRESSION: NEGATIVE There is no mammographic evidence of malignancy. A 1 year screening mammogram is recommended. Based on the Tyrer Cuzick model (a risk assessment model) the patient's lifetime risk is 19.6% and her 10 year risk is 2.8%. According to the ACR, ACS, and NCCN guidelines, an annual breast MRI exam along with mammogram is recommended if the patient's lifetime risk is 20% or greater. This exam was interpreted at Station ID: [id number]. NOTE: For mammograms, a report in lay terms will be sent to the patient. Approximately 15% of breast malignancies will not be visualized mammographically. In the management of a palpable breast mass, a negative mammogram must not discourage biopsy of a clinically suspicious lesion. Electronically Signed By: Amando calderon/juan a:06/09/2023 16:05:29 letter sent: Normal Exam ACR BI-RADS Category 1: Negative [id number]
== END ==
LOC: MAMMO 11:13
PROVIDERS: Family Provider Family Medicine; PCP Family Medicine; Referring Provider Family Medicine; Visit Provider Family Medicine
DX: Z12.31 Encounter for screening mammogram for malignant neoplasm of breast (principal); Z80.3 Family history of malignant neoplasm of breast
CPT/HCPCS: 77063; 77067

== ENCOUNTER → 2023-10-26 10:02 | Outpatient (CLI) | payer OTHER, MEDICAID, SELFPAY | PROVIDERS: Family Provider Family Medicine; PCP Family Medicine; Visit Provider Nurse Practitioner Family | DX: R31.9 Hematuria, unspecified (principal) | CPT/HCPCS: 87086 ==

== ENCOUNTER 2023-11-06 10:48 | Emergency (ER) | payer OTHER, MEDICAID, SELFPAY ==
[2023-11-06 11:36] VITALS: BP 119/61; PULSE 85; RESP 16; TEMP 36.8; O2SAT 97; BMI 24.9
[2023-11-06 12:06] LABS: Add Manual Diff / Slide Review NO; Basophils Absolute Auto 0 /uL (0-100); Basophils Percent Auto 0.1 % (0-2); Eosinophils Absolute Auto 100 /uL (0-450); Eosinophils Percent Auto 0.7 % (2-4); Hematocrit 40.8 % (36-46); Hemoglobin 13.6 g/dL (12.0-16.0); Lymphocytes Absolute Auto 1400 /uL (1100-4500); Lymphocytes Percent Auto 11.4 % (25-40); Mean Corpuscular HGB Conc 33.4 % (30-36); Mean Corpuscular Hemoglobin 30.5 PG (26-34); Mean Corpuscular Volume 91.5 fL (80-100); Monocytes Absolute Auto 400 /uL (0-900); Monocytes Percent Auto 3.4 % (3-14); Neutrophils Absolute Auto 10200 /uL (1500-7000); Neutrophils Percent Auto 84.4 % (50-75); Platelet Count 281 X10^3/uL (150-400); Red Blood Cell Count 4.46 X10^6/uL (4.0-5.2); Red Cell Distribution Width 13.6 % (11.6-14.8)
[2023-11-06] MEDS: methylPREDNISolone 125 MG/2 ML VIAL IV (12:07)
[2023-11-06] MEDS: FAMOTIDINE 20 MG/2 ML VIAL IV ×2 (12:07→12:47)
[2023-11-06] MEDS: diphenhydrAMINE 50 MG/ML VIAL IV (12:07)
[2023-11-06 12:26] LABS: Alanine Aminotransferase 18 IU/L (<35); Albumin 4.4 g/dL (3.5-5.0); Albumin Globulin Ratio 1.6 (1.0-2.8); Alkaline Phosphatase 72 U/L (38-126); Aspartate Aminotransferase 26 IU/L (14-36); BUN Creatinine Ratio 17.6 (6-22); Bilirubin Total 0.6 mg/dL (0.2-1.3); Blood Urea Nitrogen 13 mg/dL (7-17); Calcium 9.2 mg/dL (8.4-10.2); Carbon Dioxide 22 mmol/L (22-32); Chloride 112 mmol/L (98-107); Estimated Glomerular Filt Rate > 60 mL/min (>60); Globulin 2.8 g/dL (1.7-4.1); Glucose 84 mg/dL (70-100); HEMOLYSIS 18 (0-50); Potassium 4.3 mmol/L (3.4-5.1); Sodium 139 mmol/L (137-145); Total Protein 7.2 g/dL (6.3-8.2)
--- NOTE | 2023-11-06 13:18 | PC.NURSE ---
Pt reports eating foods with walnuts and mushrooms yesterday stating I may be allergic to those now. No known food allergies. Reports allergic to dust mites, but have grown out of that. Denies SOB, dizziness, dyspnea.
[2023-11-06 13:19] VITALS: RESP 16
--- NOTE | 2023-11-06 13:54 | ED_ITS ---
HPI - Allergic Reaction <Danna Dueñas PA-C - Last Filed: 11/06/23 14:06> General Chief complaint: Allergic Reaction Stated complaint: Allergic Reaction Hands swelling/pain Time Seen by Provider: 11/06/23 13:34 Source: patient Mode of arrival: Ambulatory History of Present Illness HPI narrative: 43-year-old female with past medical history environmental allergies presents to the ED status post a acute allergic reaction that started yesterday. Patient states that she consumed 2 new food items the night before her allergic reaction started. One was a bite of baklava and the other was some chocolate with mushrooms that her had purchased online for anxiety. Patient states that she has hives all over, that the rash is itchy. She had some lip swelling, facial hives, hives on her outer ears and scalp. Patient also notes that her bilateral hands feel swollen and tight. No numbness, tingling, weakness. Patient denies tongue swelling, throat swelling, chest pain, shortness of breath, wheezing, abdominal pain. Related Data Home Medications Medication Instructions Recorded Confirmed ondansetron 8 mg disintegrating 8 mg PO Q8H PRN nausea/vomiting 02/03/23 10/26/23 tablet rizatriptan 10 mg disintegrating 10 mg PO ONCE Migraines 02/03/23 10/26/23 tablet pifyuryghh-kcqhduskkgzoc-bwwaibte tab PO 10/26/23 10/26/23 50 mg-325 mg-40 mg tablet Previous Rx's Medication Instructions Recorded butalbital 50 mg-acetaminophen 325 See Rx Instructions .Route 02/18/20 mg-caffeine 40 mg-codeine 30 mg cap .COMPLEX #20 caps sumatriptan succinate 4 mg/0.5 mL 4 mg (0.5 mL) SUBCUT ONCE #1 mL 02/15/22 subcutaneous cartridge (refill) fluoxetine 40 mg capsule 80 mg (2 x 40 mg) PO DAILY #60 caps 02/03/23 hydroxyzine pamoate 25 mg capsule 25 mg PO BID PRN anxiety #60 caps 03/21/23 phenazopyridine 200 mg tablet 200 mg PO TID 6 doses #6 tabs 10/26/23 (Pyridium) epinephrine 0.3 mg/0.3 mL 0.3 mg (0.3 mL) IM Q5-15M PRN 11/06/23 injection, auto-injector (EpiPen) hypersensitivity reaction #2 ea prednisone 20 mg tablet 40 mg (2 x 20 mg) PO DAILY 5 days 11/06/23 #10 tabs Allergies Allergy/AdvReac Type Severity Reaction Status Date / Time cefaclor [CEFACLOR] Allergy Intermediate HIVES Verified 10/26/23 10:16 Review of Systems <Danna Dueñas PA-C - Last Filed: 11/06/23 14:06> Constitutional Constitutional: Denies chills, Denies fatigue, Denies fever(s), Denies frequent falls, Denies lethargy and Denies weakness Eyes Eyes: Denies change in vision, Denies eye discharge, Denies irritation and Denies loss of vision ENT Ears, Nose, Mouth, and Throat: Denies change in voice, Denies dizziness, Denies neck pain, Denies sore throat and Denies throat swelling Cardiovascular Cardiovascular: Denies chest pain, Denies irregular heart rhythm, Denies lightheadedness, Denies palpitations, Denies dyspnea, Denies dyspnea on exertion and Denies orthopnea Respiratory Respiratory: Denies cough, Denies dyspnea, Denies dyspnea on exertion and Denies wheezing Gastrointestinal Gastrointestinal: Denies abdominal pain, Denies change in bowel habits, Denies diarrhea, Denies nausea and Denies vomiting Musculoskeletal Musculoskeletal: Denies neck pain and Denies numbness Integumentary/Breasts Skin/Breast: Reports pruritus, Denies erythema, Reports rash and Denies wounds Neurologic Neurologic: Denies behavioral changes, Denies confusion, Denies dizziness, Denies frequent falls, Denies loss of vision, Denies numbness and Denies weakness Psychiatric Psychiatric: Denies anxiety, Denies behavioral changes, Denies confusion, Denies depression, Denies homicidal ideation and Denies suicidal ideation Endocrine Endocrine: Denies fatigue, Denies flushing and Denies palpitations Hematologic/Lymphatic Hematologic/Lymphatic: Denies easy bruising Allergic/Immunologic Allergic/Immunologic: Denies urticaria, Denies throat swelling and Denies wheezing Patient History <Danna Dueñas PA-C - Last Filed: 11/06/23 14:06> Medical History Primary stress urinary incontinence Obesity (BMI 30.0-34.9) Kidney stones Abnormal Pap smear of cervix depression DVT (deep vein thrombosis) in (2014) 4 para 4 Hyperemesis gravidarum Anxiety and depression Migraines Surgical History S/P cholecystectomy (~2021) Hx of cystoscopy (11/24/20) History of dental surgery H/O tubal ligation History of delivery Status post delivery (2016) Status post loop electrosurgical excision procedure (LEEP) of cervix (2012) Family History Mother Hypertension Cancer Migraines Father Hypertension Chronic pancreatitis Kidney stone Grandmother Cancer Diabetes mellitus Brother Eczema Migraines Social History marital status: number of children: 4 household members: spouse and children occupational status: other Smoking Status: Never smoker alcohol intake: former substance use type: does not use caffeine: Yes Smoking Status: Never smoker Substance Use Type: does not use Exam <Danna Dueñas PA-C - Last Filed: 11/06/23 14:06> Narrative Exam Narrative: Const General:?cooperative, healthy appearing and comfortable [facility] Head:?normal to inspection Ears:?hearing grossly normal bilaterally Nose:?external nose normal Face and sinus:?normal facial exam and sinuses nontender Mouth:?oral mucosae normal Throat:?posterior oropharynx normal; airway patent Eyes General:?appearance normal, both eyes and all related structures Neck Neck:?normal visual inspection and no lymphadenopathy noted Resp Effort & Inspection:?normal respiratory effort Auscultation:?clear to auscultation bilaterally Cardio Rate:?regular rate Rhythm:?regular rhythm Integumentary Generalized, all-over hives. Bilateral hands appear erythematous but strength and sensation is intact and there is full range of motion. Neurovascularly intact. Compartments soft. No throat swelling or tongue swelling, airway is patent. No signs of angioedema. Neuro General:?patient alert, patient awake and patient oriented x3 Initial Vital Signs Initial Vital Signs: Vital Signs Temperature 98.3 F 11/06/23 11:36 Pulse Rate 85 11/06/23 11:36 Respiratory Rate 16 11/06/23 11:36 Blood Pressure 119/61 11/06/23 11:36 Pulse Oximetry 97 11/06/23 11:36 Oxygen Delivery Method Room Air 11/06/23 11:36 <Luan Farrell MD - Last Filed: 11/06/23 20:02> Initial Vital Signs Initial Vital Signs: Vital Signs Temperature 98.3 F 11/06/23 11:36 Pulse Rate 85 11/06/23 11:36 Respiratory Rate 16 11/06/23 11:36 Blood Pressure 119/61 11/06/23 11:36 Pulse Oximetry 97 11/06/23 11:36 Oxygen Delivery Method Room Air 11/06/23 11:36 Course <Danna Dueñas PA-C - Last Filed: 11/06/23 14:06> Orders Ordered: ED Orders 11/06/23 12:00 CBC Auto Diff [Complete Blood Count AUTO DIFF] Stat CMP [Comprehensive Metabolic Panel] Stat Discontinued Medications Diphenhydramine HCl (Diphenhydramine 50 Mg/Ml Vial) 50 mg IV NOW ONE Stop: 11/06/23 11:46 Last Admin: 11/06/23 12:07 Dose: 50 mg Documented By: JESSICA Famotidine (Famotidine 20 Mg/2 Ml Vial) 20 mg IV NOW COUNT INCLUDES THE [facility] Last Admin: 11/06/23 12:47 Dose: 20 mg Documented By: Admin: 11/06/23 12:07 Dose: 20 mg Documented By: JESSICA Famotidine (Famotidine 20 Mg/2 Ml Vial) 20 mg IV NOW COUNT INCLUDES THE [facility] Methylprednisolone (Methylprednisolone 125 Mg/2 Ml Vial) 125 mg IV NOW ONE Stop: 11/06/23 11:47 Last Admin: 11/06/23 12:07 Dose: 125 mg Documented By: JESSICA Vital Signs Vital signs: Vital Signs - 8 hr 11/06/23 13:19 Respiratory Rate 16 <Luan Farrell MD - Last Filed: 11/06/23 20:02> Orders Ordered: ED Orders 11/06/23 12:00 CBC Auto Diff [Complete Blood Count AUTO DIFF] Stat CMP [Comprehensive Metabolic Panel] Stat Discontinued Medications Diphenhydramine HCl (Diphenhydramine 50 Mg/Ml Vial) 50 mg IV NOW ONE Stop: 11/06/23 11:46 Last Admin: 11/06/23 12:07 Dose: 50 mg Documented By: JESSICA Famotidine (Famotidine 20 Mg/2 Ml Vial) 20 mg IV NOW COUNT INCLUDES THE [facility] Last Admin: 11/06/23 12:47 Dose: 20 mg Documented By: Admin: 11/06/23 12:07 Dose: 20 mg Documented By: JESSICA Famotidine (Famotidine 20 Mg/2 Ml Vial) 20 mg IV NOW [facility] Methylprednisolone (Methylprednisolone 125 Mg/2 Ml Vial) 125 mg IV NOW ONE Stop: 11/06/23 11:47 Last Admin: 11/06/23 12:07 Dose: 125 mg Documented By: JESSICA Vital Signs Vital signs: Vital Signs - 8 hr 11/06/23 13:19 Respiratory Rate 16 MDM - Allergic Reaction <Danna Dueñas PA-C - Last Filed: 11/06/23 14:06> Lab Data 11/06/23 12:00 11/06/23 12:00 Labs: Lab Results 11/06/23 Range/Units 12:00 WBC 12.0 H (4.5-11.0) X10^3/uL RBC 4.46 (4.0-5.2) X10^6/uL Hgb 13.6 (12.0-16.0) g/dL Hct 40.8 (36-46) % MCV 91.5 (80-100) fL MCH 30.5 (26-34) PG MCHC 33.4 (30-36) % RDW 13.6 (11.6-14.8) % Plt Count 281 (150-400) X10^3/uL Neut % (Auto) 84.4 H (50-75) % Lymph % (Auto) 11.4 L (25-40) % [place] % (Auto) 3.4 (3-14) % Eos % (Auto) 0.7 L (2-4) % Baso % (Auto) 0.1 (0-2) % Neut # (Auto) 76680 H (1360-9505) /uL Lymph # (Auto) 1400 (6696-8007) /uL [place] # (Auto) 400 (0-900) /uL Eos # (Auto) 100 (0-450) /uL Baso # (Auto) 0 (0-100) /uL Sodium 139 (137-145) mmol/L Potassium 4.3 (3.4-5.1) mmol/L Chloride 112 H (98-107) mmol/L Carbon Dioxide 22 (22-32) mmol/L BUN 13 (7-17) mg/dL Creatinine 0.74 (0.52-1.04) mg/dL Estimated GFR > 60 (>60) mL/min BUN/Creatinine Ratio 17.6 (6-22) Glucose 84 (70-100) mg/dL Calcium 9.2 (8.4-10.2) mg/dL Total Bilirubin 0.6 (0.2-1.3) mg/dL AST 26 (14-36) IU/L ALT 18 (<35) IU/L Alkaline Phosphatase 72 (38-126) U/L Total Protein 7.2 (6.3-8.2) g/dL Albumin 4.4 (3.5-5.0) g/dL Globulin 2.8 (1.7-4.1) g/dL Albumin/Globulin Ratio 1.6 (1.0-2.8) MDM Narrative Medical decision making narrative: 43-year-old female with past medical history environmental allergies presents to the ED status post a acute allergic reaction that started yesterday. In the ED, patient does appear to have generalized hives. No angioedema, wheezing, abdominal pain noted in the ED. patient's symptoms most likely an acute allergic reaction to either the baklava or the mushroom chocolates. Patient is not presenting in the ED with an anaphylactic reaction. Patient was given Solu- Medrol, Benadryl, Pepcid AC with good relief. Prescribed prednisone, EpiPen. Recommend continuing Benadryl, Zyrtec, Pepcid AC. Recommend follow-up with PCP as soon as possible. ED return precautions discussed with patient. Patient verbalized understanding. Medical records reviewed: Yes <Luan Farrell MD - Last Filed: 11/06/23 20:02> Lab Data Labs: Lab Results 11/06/23 Range/Units 12:00 WBC 12.0 H (4.5-11.0) X10^3/uL RBC 4.46 (4.0-5.2) X10^6/uL Hgb 13.6 (12.0-16.0) g/dL Hct 40.8 (36-46) % MCV 91.5 (80-100) fL MCH 30.5 (26-34) PG MCHC 33.4 (30-36) % RDW 13.6 (11.6-14.8) % Plt Count 281 (150-400) X10^3/uL Neut % (Auto) 84.4 H (50-75) % Lymph % (Auto) 11.4 L (25-40) % [place] % (Auto) 3.4 (3-14) % Eos % (Auto) 0.7 L (2-4) % Baso % (Auto) 0.1 (0-2) % Neut # (Auto) 95397 H (7218-7683) /uL Lymph # (Auto) 1400 (4199-1802) /uL [place] # (Auto) 400 (0-900) /uL Eos # (Auto) 100 (0-450) /uL Baso # (Auto) 0 (0-100) /uL Sodium 139 (137-145) mmol/L Potassium 4.3 (3.4-5.1) mmol/L Chloride 112 H (98-107) mmol/L Carbon Dioxide 22 (22-32) mmol/L BUN 13 (7-17) mg/dL Creatinine 0.74 (0.52-1.04) mg/dL Estimated GFR > 60 (>60) mL/min BUN/Creatinine Ratio 17.6 (6-22) Glucose 84 (70-100) mg/dL Calcium 9.2 (8.4-10.2) mg/dL Total Bilirubin 0.6 (0.2-1.3) mg/dL AST 26 (14-36) IU/L ALT 18 (<35) IU/L Alkaline Phosphatase 72 (38-126) U/L Total Protein 7.2 (6.3-8.2) g/dL Albumin 4.4 (3.5-5.0) g/dL Globulin 2.8 (1.7-4.1) g/dL Albumin/Globulin Ratio 1.6 (1.0-2.8) Discharge Plan Departure Patient Disposition: Home Clinical Impression: Allergic reaction Qualifiers: Encounter type: initial encounter Qualified Code(s): T78.40XA - Allergy, unspecified, initial encounter Instructions: DI for Hives Activity Restrictions/Additional Instructions: You were evaluated in the ED today for an allergic reaction. Your symptoms improved with Solu-Medrol, Benadryl, Pepcid AC. You are being prescribed prednisone to continue taking at home for the next 5 days. You were also been prescribed an EpiPen, do not hesitate to use it if you experience any tongue swelling, throat swelling. Please also continue to take Benadryl and Pepcid AC. Both are available [id number]. You may also take Zyrtec twice daily until your symptoms completely subside. Please discontinue the chocolate with mushrooms or any other new foods. If you experience any tongue swelling, throat swelling, trouble breathing, please call 911 immediately. Return to the ED if you have any worsening symptoms. Please follow-up with your PCP as soon as possible for further evaluation. Prescriptions: New prednisone 20 mg tablet 40 mg PO DAILY 5 Days Qty: 10 0RF epinephrine [EpiPen] 0.3 mg/0.3 mL auto-injector 0.3 mg IM Q5-15M PRN (Reason: hypersensitivity reaction) Qty: 2 0RF Rx Instructions: do not exceed 3 doses per episode No Action sumatriptan succinate 4 mg/0.5 mL cartridge 4 mg SUBCUT ONCE Qty: 1 0RF zguuosgmgr-sruxmpobqilua-fbfy 50-325-40 mg tablet PO phenazopyridine [Pyridium] 200 mg tablet 200 mg PO TID 0 Days Qty: 6 0RF afwyrlnbrx-ntenoenmzh-xhe-cod 61-460-30-30 mg capsule See Rx Instructions .ROUTE .COMPLEX Qty: 20 0RF Dose Instruction: take 2 capsules by mouth every 6 hours if needed for pain MAX 2 DAYS PER WEEK Rx Instructions: take 2 capsules by mouth every 6 hours if needed for pain MAX 2 DAYS PER WEEK rizatriptan 10 mg tablet,disintegrating 10 mg PO ONCE ondansetron 8 mg tablet,disintegrating 8 mg PO Q8H PRN (Reason: nausea/vomiting) fluoxetine 40 mg capsule 80 mg PO DAILY Qty: 60 11RF hydroxyzine pamoate 25 mg capsule 25 mg PO BID PRN (Reason: anxiety) Qty: 60 11RF Referrals: Glendy Philip DO [Primary Care Provider] - Stand Alone Forms: Patient Portal/API ED Sign-out <Luan Farrell MD - Last Filed: 11/06/23 20:02> Cosign ED Attending Ladonna Attestation: I was immediately available in the department for consultation. I reviewed the documentation. Supervised by Luan Farrell MD.
== END 2023-11-06 14:09 | disposition home or self-care (01) ==
PROVIDERS: Emergency Medicine; Emergency Provider Student in an Organized Health Care Education/Training Program; Family Provider Family Medicine; PCP Family Medicine
DX: T78.40XA Allergy, unspecified, initial encounter (principal); X58.XXXA Exposure to other specified factors, initial encounter
CPT/HCPCS: 80053; 85025; 96374; 96375; 99283; J1200; J2919

== ENCOUNTER 2024-02-16 11:13 | Emergency (ER) | payer OTHER, MEDICAID, SELFPAY ==
[2024-02-16 11:22] VITALS: PULSE 88; RESP 18; TEMP 36.5; O2SAT 99; BMI 24.9
--- NOTE | 2024-02-16 11:37 | ED_ITS ---
HPI - Headache General Chief Complaint: Headache Stated Complaint: vomiting, migraine Time Seen by Provider: 02/16/24 11:37 Mode of arrival: Ambulatory History of Present Illness HPI Narrative: 43-year-old female with history of recurrent migraine headaches since age 17, followed by Neurology Dr. Arriaga, current home regimen sublingual and injectable triptans, had headache last night behind left eye typical of her recurrent headaches, with some photophobia, no injury or trauma activity, refractory to taking sublingual Triptan about midnight, 2 hours later for her regimen tried injected Imitrex, still having headache symptoms. No fevers or chills. No weakness or numbness. Related Data Home Medications Medication Instructions Recorded Confirmed ondansetron 8 mg disintegrating 8 mg PO Q8H PRN nausea/vomiting 02/03/23 10/26/23 tablet rizatriptan 10 mg disintegrating 10 mg PO ONCE Migraines 02/03/23 10/26/23 tablet dndxjlzxal-wbljugxfvewwe-alpoldfz tab PO 10/26/23 10/26/23 50 mg-325 mg-40 mg tablet Previous Rx's Medication Instructions Recorded butalbital 50 mg-acetaminophen 325 See Rx Instructions .Route 02/18/20 mg-caffeine 40 mg-codeine 30 mg cap .COMPLEX #20 caps sumatriptan succinate 4 mg/0.5 mL 4 mg (0.5 mL) SUBCUT ONCE #1 mL 02/15/22 subcutaneous cartridge (refill) hydroxyzine pamoate 25 mg capsule 25 mg PO BID PRN anxiety #60 caps 03/21/23 phenazopyridine 200 mg tablet 200 mg PO TID 6 doses #6 tabs 10/26/23 (Pyridium) epinephrine 0.3 mg/0.3 mL 0.3 mg (0.3 mL) IM Q5-15M PRN 11/06/23 injection, auto-injector (EpiPen) hypersensitivity reaction #2 ea fluoxetine 40 mg capsule 80 mg (2 x 40 mg) PO DAILY #60 caps 01/26/24 Allergies Allergy/AdvReac Type Severity Reaction Status Date / Time cefaclor [CEFACLOR] Allergy Intermediate HIVES Verified 10/26/23 10:16 Review of Systems Review of Systems Narrative: see HPI Patient History Medical History Primary stress urinary incontinence Obesity (BMI 30.0-34.9) Kidney stones Abnormal Pap smear of cervix depression DVT (deep vein thrombosis) in (2014) 4 para 4 Hyperemesis gravidarum Anxiety and depression Migraines Surgical History S/P cholecystectomy (~2021) Hx of cystoscopy (11/24/20) History of dental surgery H/O tubal ligation History of delivery Status post delivery (2016) Status post loop electrosurgical excision procedure (LEEP) of cervix (2012) Family History Mother Hypertension Cancer Migraines Father Hypertension Chronic pancreatitis Kidney stone Grandmother Cancer Diabetes mellitus Brother Eczema Migraines Social History marital status: number of children: 4 household members: spouse and children occupational status: other Smoking Status: Never smoker alcohol intake: former substance use type: does not use caffeine: Yes Smoking Status: Never smoker alcohol intake frequency: 0-2 drinks per day Substance Use Type: does not use Exam Initial Vital Signs Initial Vital Signs: Vital Signs Temperature 97.7 F 02/16/24 11:22 Pulse Rate 88 02/16/24 11:22 Respiratory Rate 18 02/16/24 11:22 Pulse Oximetry 99 02/16/24 11:22 Oxygen Delivery Method Room Air 02/16/24 11:22 Const General: cooperative HENMT Head: normocephalic and atraumatic Ears: external ears normal and TM's normal bilaterally Nose: external nose normal and No nasal discharge Face and sinus: sinuses nontender, face symmetric, no sinus tenderness and No dry mucous membranes Mouth: oral mucosae normal and moist mucous membranes Teeth and gingiva: dentition normal Throat: tonsils normal and uvula midline Eyes Eyelids: eyelids normal Conjunctivae: conjunctivae normal Sclera: sclerae normal Pupils: PERRL EOM: EOM intact bilaterally Neck Neck: normal visual inspection, trachea midline, No lymphadenopathy, No midline deformity and No JVD Lymphatic: No lymphedema Chest Chest: normal inspection of the chest Resp Effort & Inspection: normal respiratory effort, able to speak in complete sentences, no respiratory distress and no use of accessory muscles Auscultation: clear to auscultation bilaterally, no rales, no rhonchi and no wheezes Cardio Rate: regular rate Rhythm: regular rhythm Heart Sounds: no click, no gallops, no murmurs and no rubs Pulses: normal peripheral pulses GI Inspection: non-distended Palpation: soft, no hepatosplenomegaly, No guarding, No pulsatile mass and No tender Auscultation: normal bowel sounds Back/Spine/Pelvis Back: No CVA tenderness Cervical Spine: cervical ROM normal and No pain with cervical ROM Skin General: no rashes or lesions noted, No jaundice and No petechiae Neuro General: patient alert, patient oriented x3, gait normal and no focal motor deficits Speech: speech normal Extrem General: full ROM and no clubbing, cyanosis or edema Psych Appearance: well kempt Mental Status: mental status grossly normal Attitude: cooperative Thought Content: normal Course Orders Ordered: Discontinued Medications Dexamethasone (Dexamethasone 10 Mg/Ml Vial) 10 mg IV NOW ONE Stop: 02/16/24 11:38 Last Admin: 02/16/24 12:07 Dose: 10 mg Documented By: CRISTIANO Diphenhydramine HCl (Diphenhydramine 50 Mg/Ml Vial) 50 mg IV NOW ONE Stop: 02/16/24 11:38 Last Admin: 02/16/24 12:07 Dose: 50 mg Documented By: CRISTIANO Sodium Chloride (Normal Saline 0.9%) 1,000 mls @ 1,000 mls/hr IV BOLUS ONE Stop: 02/16/24 12:33 Last Infusion: 02/16/24 13:14 Dose: Infused Documented By: Admin: 02/16/24 12:08 Dose: 1,000 mls/hr Documented By: CRISTIANO Ketorolac Tromethamine (Ketorolac 30 Mg/Ml Vial) 15 mg IV NOW ONE Stop: 02/16/24 11:39 Last Admin: 02/16/24 12:07 Dose: 15 mg Documented By: CRISTIANO Ondansetron HCl (Ondansetron 4 Mg/2 Ml Inj) 4 mg IV NOW PRN PRN Reason: Nausea And Vomiting Last Admin: 02/16/24 12:07 Dose: 4 mg Documented By: CRISTIANO Ondansetron HCl (Ondansetron 4 Mg Odt) 4 mg PO NOW PRN PRN Reason: Nausea And Vomiting Prochlorperazine (Prochlorperazine 10 Mg/2 Ml Vial) 10 mg IV NOW ONE Stop: 02/16/24 11:38 Last Admin: 02/16/24 12:06 Dose: 10 mg Documented By: CRISTIANO Vital Signs Vital signs: Vital Signs - 8 hr 02/16/24 13:53 Pulse Rate 80 Respiratory Rate 16 Blood Pressure 129/82 Pulse Oximetry 96 Oxygen Delivery Method Room Air MDM - Headache Lab Data 02/16/24 11:56 02/16/24 11:56 Labs: Lab Results 02/16/24 Range/Units 11:56 WBC 10.8 (4.5-11.0) X10^3/uL RBC 4.11 (4.0-5.2) X10^6/uL Hgb 13.0 (12.0-16.0) g/dL Hct 37.7 (36-46) % MCV 91.8 (80-100) fL MCH 31.6 (26-34) PG MCHC 34.4 (30-36) % RDW 13.5 (11.6-14.8) % Plt Count 311 (150-400) X10^3/uL Neut % (Auto) 88.6 H (50-75) % Lymph % (Auto) 7.2 L (25-40) % [place] % (Auto) 3.9 (3-14) % Eos % (Auto) 0.2 L (2-4) % Baso % (Auto) 0.1 (0-2) % Neut # (Auto) 9600 H (1552-6580) /uL Lymph # (Auto) 800 L (7003-6555) /uL [place] # (Auto) 400 (0-900) /uL Eos # (Auto) 0 (0-450) /uL Baso # (Auto) 0 (0-100) /uL Sodium 140 (137-145) mmol/L Potassium 4.1 (3.4-5.1) mmol/L Chloride 110 H (98-107) mmol/L Carbon Dioxide 19 L (22-32) mmol/L BUN 11 (7-17) mg/dL Creatinine 0.63 (0.52-1.04) mg/dL Estimated GFR > 60 (>60) mL/min BUN/Creatinine Ratio 17.5 (6-22) Glucose 135 H (70-100) mg/dL Calcium 9.1 (8.4-10.2) mg/dL Total Bilirubin 0.8 (0.2-1.3) mg/dL AST 26 (14-36) IU/L ALT 19 (<35) IU/L Alkaline Phosphatase 49 (38-126) U/L Total Protein 7.0 (6.3-8.2) g/dL Albumin 4.4 (3.5-5.0) g/dL Globulin 2.6 (1.7-4.1) g/dL Albumin/Globulin Ratio 1.7 (1.0-2.8) Lipase 323 H (23-300) U/L MDM Narrative Medical decision making narrative: 43-year-old female with recurrent headaches, left retro-orbital typical headache today, nonfocal exam, nontoxic appearing, headache pain symptoms retractory to her usual Triptan regimen, followed by Neurology, here for abortive rescue therapy. IV Compazine, Benadryl, Toradol, Decadron. She had improvement then near resolution of her symptoms. She was able to take oral fluids. She was ambulatory. She felt much improved, discharged home with family. Follow up with her neurologist advised, return precautions discussed. Discharge Plan Departure Patient Disposition: Home Clinical Impression: Migraine headache Activity Restrictions/Additional Instructions: History of recurrent migraine headaches, followed by Neurology, refractory so far to your usual regimen of Triptan medications. IV Compazine with Benadryl given, with Decadron and Toradol. You had improvement than near resolution of symptoms. You were improved, able to take oral fluids and ambulate. Follow up with your neurologist as scheduled. Return to this/nearest emergency department for any change worsening symptoms or any concerns prior Prescriptions: No Action sumatriptan succinate 4 mg/0.5 mL cartridge 4 mg SUBCUT ONCE Qty: 1 0RF rgrlpyweer-lxmljoiueipfe-yxwb 50-325-40 mg tablet PO phenazopyridine [Pyridium] 200 mg tablet 200 mg PO TID 0 Days Qty: 6 0RF hshkmkjzww-ygvaikjnwk-vhb-cod 00-586-88-30 mg capsule See Rx Instructions .ROUTE .COMPLEX Qty: 20 0RF Dose Instruction: take 2 capsules by mouth every 6 hours if needed for pain MAX 2 DAYS PER WEEK Rx Instructions: take 2 capsules by mouth every 6 hours if needed for pain MAX 2 DAYS PER WEEK fluoxetine 40 mg capsule 80 mg PO DAILY Qty: 60 0RF Rx Instructions: patient needs appointment for future refills. rizatriptan 10 mg tablet,disintegrating 10 mg PO ONCE ondansetron 8 mg tablet,disintegrating 8 mg PO Q8H PRN (Reason: nausea/vomiting) hydroxyzine pamoate 25 mg capsule 25 mg PO BID PRN (Reason: anxiety) Qty: 60 11RF epinephrine [EpiPen] 0.3 mg/0.3 mL auto-injector 0.3 mg IM Q5-15M PRN (Reason: hypersensitivity reaction) Qty: 2 0RF Rx Instructions: do not exceed 3 doses per episode Referrals: Glendy Philip DO [Primary Care Provider] - Stand Alone Forms: Patient Portal/API
[2024-02-16 12:03] LABS: Add Manual Diff / Slide Review NO; Basophils Absolute Auto 0 /uL (0-100); Basophils Percent Auto 0.1 % (0-2); Eosinophils Absolute Auto 0 /uL (0-450); Eosinophils Percent Auto 0.2 % (2-4); Hematocrit 37.7 % (36-46); Lymphocytes Absolute Auto 800 /uL (1100-4500); Lymphocytes Percent Auto 7.2 % (25-40); Mean Corpuscular HGB Conc 34.4 % (30-36); Mean Corpuscular Hemoglobin 31.6 PG (26-34); Mean Corpuscular Volume 91.8 fL (80-100); Monocytes Absolute Auto 400 /uL (0-900); Monocytes Percent Auto 3.9 % (3-14); Neutrophils Absolute Auto 9600 /uL (1500-7000); Neutrophils Percent Auto 88.6 % (50-75); Platelet Count 311 X10^3/uL (150-400); Red Blood Cell Count 4.11 X10^6/uL (4.0-5.2); Red Cell Distribution Width 13.5 % (11.6-14.8); White Blood Cell Count 10.8 X10^3/uL (4.5-11.0)
[2024-02-16] MEDS: PROCHLORPERAZINE 10 MG/2 ML VIAL IV (12:06)
[2024-02-16] MEDS: DEXAMETHASONE 10 MG/ML VIAL IV (12:07)
[2024-02-16] MEDS: KETOROLAC 30 MG/ML VIAL 15 MG IV (12:07)
[2024-02-16] MEDS: diphenhydrAMINE 50 MG/ML VIAL IV (12:07)
[2024-02-16] MEDS: ONDANSETRON 4 MG/2 ML INJ IV (12:07)
[2024-02-16] MEDS: SODIUM CHLORIDE 0.9% 1,000 ML 1000 ML IV (12:08)
[2024-02-16 12:20] LABS: Alanine Aminotransferase 19 IU/L (<35); Albumin 4.4 g/dL (3.5-5.0); Albumin Globulin Ratio 1.7 (1.0-2.8); Alkaline Phosphatase 49 U/L (38-126); Aspartate Aminotransferase 26 IU/L (14-36); BUN Creatinine Ratio 17.5 (6-22); Bilirubin Total 0.8 mg/dL (0.2-1.3); Blood Urea Nitrogen 11 mg/dL (7-17); Calcium 9.1 mg/dL (8.4-10.2); Carbon Dioxide 19 mmol/L (22-32); Chloride 110 mmol/L (98-107); Estimated Glomerular Filt Rate > 60 mL/min (>60); Globulin 2.6 g/dL (1.7-4.1); Glucose 135 mg/dL (70-100); HEMOLYSIS 43 (0-50); Lipase 323 U/L (23-300); Potassium 4.1 mmol/L (3.4-5.1); Sodium 140 mmol/L (137-145)
[2024-02-16 13:53] VITALS: BP 129/82; PULSE 80; RESP 16; O2SAT 96
== END 2024-02-16 13:55 | disposition home or self-care (01) ==
PROVIDERS: Emergency Provider Emergency Medicine; Family Provider Family Medicine; PCP Family Medicine
DX: G43.909 Migraine, unspecified, not intractable, without status migrainosus (principal)
CPT/HCPCS: 36415; 80053; 83690; 85025; 96361; 96374; 96375; 99284; J0780; J1100; J1200; J1885; J2405

== ENCOUNTER 2024-02-29 15:24 | Emergency (ER) | payer OTHER, MEDICAID, SELFPAY ==
[2024-02-29 15:40] VITALS: BP 140/84; PULSE 84; RESP 16; TEMP 37; O2SAT 97
[2024-02-29 17:17] LABS: Bacteria Urine Occasional (0-1); Culture Indicated Urine Cult Not Indicated; Squamous Epithelial Cell Urine 0-1 /HPF (0-5/HPF); Urine Volume 10mL (spun); WBC Urine 0-1/HPF (0-5/HPF)
[2024-02-29 17:18] LABS: RBC Urine 10-30/HPF (0-5/HPF)
[2024-02-29 17:51] LABS: Add Manual Diff / Slide Review NO; Basophils Absolute Auto 0 /uL (0-100); Basophils Percent Auto 0.5 % (0-2); Eosinophils Absolute Auto 200 /uL (0-450); Eosinophils Percent Auto 2.4 % (2-4); Hematocrit 38.1 % (36-46); Lymphocytes Absolute Auto 1900 /uL (1100-4500); Lymphocytes Percent Auto 20.3 % (25-40); Mean Corpuscular HGB Conc 34.2 % (30-36); Mean Corpuscular Hemoglobin 31.6 PG (26-34); Mean Corpuscular Volume 92.4 fL (80-100); Monocytes Absolute Auto 600 /uL (0-900); Monocytes Percent Auto 6.1 % (3-14); Neutrophils Absolute Auto 6500 /uL (1500-7000); Neutrophils Percent Auto 70.7 % (50-75); Platelet Count 255 X10^3/uL (150-400); Red Blood Cell Count 4.12 X10^6/uL (4.0-5.2); Red Cell Distribution Width 13.2 % (11.6-14.8); White Blood Cell Count 9.2 X10^3/uL (4.5-11.0)
[2024-02-29] MEDS: KETOROLAC 30 MG/ML VIAL 15 MG IM (17:52)
[2024-02-29 18:06] LABS: Alanine Aminotransferase 15 IU/L (<35); Albumin 4.4 g/dL (3.5-5.0); Albumin Globulin Ratio 1.6 (1.0-2.8); Alkaline Phosphatase 69 U/L (38-126); Aspartate Aminotransferase 23 IU/L (14-36); Bilirubin Total 0.4 mg/dL (0.2-1.3); Blood Urea Nitrogen 10 mg/dL (7-17); Calcium 9.3 mg/dL (8.4-10.2); Carbon Dioxide 21 mmol/L (22-32); Chloride 107 mmol/L (98-107); Estimated Glomerular Filt Rate > 60 mL/min (>60); Globulin 2.7 g/dL (1.7-4.1); Glucose 97 mg/dL (70-100); HEMOLYSIS < 15 (0-50); Potassium 4.3 mmol/L (3.4-5.1); Sodium 136 mmol/L (137-145); Total Protein 7.1 g/dL (6.3-8.2)
--- NOTE | 2024-02-29 20:30 | ED.BACK ---
HPI - Back Pain/Injury General Chief Complaint: Back Pain/Injury Stated Complaint: urinary problem Time Seen by Provider: 02/29/24 18:11 Source: patient History of Present Illness HPI Narrative: 43-year-old woman with a history anxiety and depression, prior kidney stones, migraines Related Data Home Medications Medication Instructions Recorded Confirmed ondansetron 8 mg disintegrating 8 mg PO Q8H PRN nausea/vomiting 02/03/23 10/26/23 tablet rizatriptan 10 mg disintegrating 10 mg PO ONCE Migraines 02/03/23 10/26/23 tablet mfmwvfwktv-qhjrtpdkfdfby-gnyfmfca tab PO 10/26/23 10/26/23 50 mg-325 mg-40 mg tablet Previous Rx's Medication Instructions Recorded butalbital 50 mg-acetaminophen 325 See Rx Instructions .Route 02/18/20 mg-caffeine 40 mg-codeine 30 mg cap .COMPLEX #20 caps sumatriptan succinate 4 mg/0.5 mL 4 mg (0.5 mL) SUBCUT ONCE #1 mL 02/15/22 subcutaneous cartridge (refill) hydroxyzine pamoate 25 mg capsule 25 mg PO BID PRN anxiety #60 caps 03/21/23 phenazopyridine 200 mg tablet 200 mg PO TID 6 doses #6 tabs 10/26/23 (Pyridium) epinephrine 0.3 mg/0.3 mL 0.3 mg (0.3 mL) IM Q5-15M PRN 11/06/23 injection, auto-injector (EpiPen) hypersensitivity reaction #2 ea fluoxetine 40 mg capsule 80 mg (2 x 40 mg) PO DAILY #60 caps 01/26/24 oxycodone-acetaminophen 5 mg-325 1 tab PO Q6H PRN pain #20 tabs 02/29/24 mg tablet tamsulosin 0.4 mg capsule (Flomax) 0.4 mg PO BEDTIME #30 caps 02/29/24 Allergies Allergy/AdvReac Type Severity Reaction Status Date / Time cefaclor [CEFACLOR] Allergy Intermediate HIVES Verified 10/26/23 10:16 Patient History Medical History Primary stress urinary incontinence Obesity (BMI 30.0-34.9) Kidney stones Abnormal Pap smear of cervix depression DVT (deep vein thrombosis) in (2014) 4 para 4 Hyperemesis gravidarum Anxiety and depression Migraines Surgical History S/P cholecystectomy (~2021) Hx of cystoscopy (11/24/20) History of dental surgery H/O tubal ligation History of delivery Status post delivery (2016) Status post loop electrosurgical excision procedure (LEEP) of cervix (2012) Family History Mother Hypertension Cancer Migraines Father Hypertension Chronic pancreatitis Kidney stone Grandmother Cancer Diabetes mellitus Brother Eczema Migraines Social History marital status: number of children: 4 household members: spouse and children occupational status: other Smoking Status: Never smoker alcohol intake: former substance use type: does not use caffeine: Yes Smoking Status: Never smoker alcohol intake frequency: 0-2 drinks per day Substance Use Type: does not use Exam Initial Vital Signs Initial Vital Signs: Vital Signs Temperature 98.6 F 02/29/24 15:40 Pulse Rate 84 02/29/24 15:40 Respiratory Rate 16 02/29/24 15:40 Blood Pressure 140/84 02/29/24 15:40 Pulse Oximetry 97 02/29/24 15:40 Oxygen Delivery Method Room Air 02/29/24 15:40 General: Healthy appearing, in no acute distress. Able to give a complete and coherent history. Well-nourished well-developed HEENT: Moist mucous membranes, normal sclera with reactive pupils, Respiratory: Lungs are clear to auscultation, no wheezing no rales no rhonchi. Full and symmetrical air movement Cardiac: Regular rate and rhythm no murmurs no bruits Abdomen: Soft, nontender, good bowel tones, right flank pain Skin: Warm and dry, no rashes Neurologic: Grossly neurologically intact with no obvious asymmetries or abnormalities Extremities: No trauma, well perfused Psych: Cooperative, appropriate insight and affect Course Orders Ordered: ED Orders 02/29/24 16:50 Urine Microscopic Stat 02/29/24 17:40 Complete Blood Count AUTO DIFF Stat Comprehensive Metabolic Panel Stat 02/29/24 20:37 CT kidney ureter bladder (KUB) Stat Hydromorphone HCl (Hydromorphone 0.5 Mg Inj) 0.5 mg IV Q15MIN PRN PRN Reason: Pain, Last Admin: 02/29/24 20:57 Dose: 0.5 mg Documented By: ROSELINE Sodium Chloride (Normal Saline 0.9%) 1,000 mls @ 1,000 mls/hr IV BOLUS ONE Stop: 02/29/24 21:35 Last Admin: 02/29/24 20:58 Dose: 1,000 mls/hr Documented By: ROSELINE Ondansetron HCl (Ondansetron 4 Mg/2 Ml Inj) 4 mg IV NOW PRN PRN Reason: Nausea And Vomiting Ondansetron HCl (Ondansetron 4 Mg Odt) 4 mg SL NOW PRN PRN Reason: Nausea And Vomiting Discontinued Medications Ketorolac Tromethamine (Ketorolac 30 Mg/Ml Vial) 15 mg IM NOW ONE Stop: 02/29/24 17:31 Last Admin: 02/29/24 17:52 Dose: 15 mg Documented By: BUBBA Ondansetron HCl (Ondansetron 4 Mg/2 Ml Inj) 4 mg IV NOW ONE Stop: 02/29/24 20:37 Last Admin: 02/29/24 20:57 Dose: 4 mg Documented By: ROSELINE Vital Signs Vital signs: Vital Signs - 8 hr 02/29/24 15:40 Temperature 98.6 F Pulse Rate 84 Respiratory Rate 16 Blood Pressure 140/84 Pulse Oximetry 97 Oxygen Delivery Method Room Air MDM - Back Pain/Injury Lab Data 02/29/24 17:40 02/29/24 17:40 Labs: Lab Results 02/29/24 02/29/24 Range/Units 16:50 17:40 WBC 9.2 (4.5-11.0) X10^3/uL RBC 4.12 (4.0-5.2) X10^6/uL Hgb 13.0 (12.0-16.0) g/dL Hct 38.1 (36-46) % MCV 92.4 (80-100) fL MCH 31.6 (26-34) PG MCHC 34.2 (30-36) % RDW 13.2 (11.6-14.8) % Plt Count 255 (150-400) X10^3/uL Neut % (Auto) 70.7 (50-75) % Lymph % (Auto) 20.3 L (25-40) % [place] % (Auto) 6.1 (3-14) % Eos % (Auto) 2.4 (2-4) % Baso % (Auto) 0.5 (0-2) % Neut # (Auto) 6500 (1446-9684) /uL Lymph # (Auto) 1900 (9020-5973) /uL [place] # (Auto) 600 (0-900) /uL Eos # (Auto) 200 (0-450) /uL Baso # (Auto) 0 (0-100) /uL Sodium 136 L (137-145) mmol/L Potassium 4.3 (3.4-5.1) mmol/L Chloride 107 (98-107) mmol/L Carbon Dioxide 21 L (22-32) mmol/L BUN 10 (7-17) mg/dL Creatinine 0.83 (0.52-1.04) mg/dL Estimated GFR > 60 (>60) mL/min BUN/Creatinine Ratio 12.0 (6-22) Glucose 97 (70-100) mg/dL Calcium 9.3 (8.4-10.2) mg/dL Total Bilirubin 0.4 (0.2-1.3) mg/dL AST 23 (14-36) IU/L ALT 15 (<35) IU/L Alkaline Phosphatase 69 (38-126) U/L Total Protein 7.1 (6.3-8.2) g/dL Albumin 4.4 (3.5-5.0) g/dL Globulin 2.7 (1.7-4.1) g/dL Albumin/Globulin Ratio 1.6 (1.0-2.8) Urine RBC 10-30/hpf H (0-5/HPF) Urine WBC 0-1/hpf (0-5/HPF) Ur Squamous Epith Cells 0-1 /hpf (0-5/HPF) Urine Bacteria Occasional (0-1) (None) Ur Culture Indicated? Cult not indicated Vol Urine Centrifuged 10ml (spun) Point of Care Testing Test Results Negative Urine Dip Bedside Urine Glucose Negative Bedside Urine Bilirubin - Negative Bedside Urine Ketone - Negative Urine Specific [place] 1.010 Bedside Urine Occult Blood +++ Bedside Urine pH 6.5 Bedside Urine Protein - Negative Bedside Urine Urobilinogen - Negative Bedside Urine Nitrite - Negative Bedside Urine Leukocytes - Negative Esterase Imaging Data CT scan - abdomen/pelvis: Radiologist's Impression: PROCEDURE: CT KIDNEY URETER BLADDER (KUB) INDICATIONS: right flank pain TECHNIQUE: Axial sections were acquired from the lung bases to the pubic symphysis. Coronal and sagittal reformats were performed. For radiation dose reduction, the following was used: automated exposure control, adjustment of mA and/or kV according to patient size. COMPARISON: [facility], CT, CT KIDNEY URETER BLADDER (KUB), 09/06/2021, 13:16. FINDINGS: Image quality: Diagnostic Lower chest: Mild ground-glass opacities in the right lower lobe. No pleural effusions. Heart size is normal where visualized Liver: No contour deforming mass. The solid organs are not well evaluated without IV contrast Gallbladder and biliary system: Cholecystectomy clips. No pathologic biliary dilation Pancreas: No ductal dilation Spleen: Nonenlarged Adrenals: No discrete nodules Kidneys: 7 x 6 x 6 mm right proximal ureter calcified stone. Other bilateral nonobstructing calculi are seen bilaterally under 5 mm. There is moderate to severe pelvocaliectasis. Suspected phlebolith is again seen adjacent to the left UVJ, without left-sided hydronephrosis There are possible renal cysts, not well evaluated on this study Vessels and lymph nodes: No abdominal aortic aneurysm. No pathologic lymph nodes by size criteria. Bowel and peritoneum: No evidence of small bowel obstruction. There is increased fecal loading in the proximal and mid colon. No pathologic ascites Body wall: Small fat and omentum containing umbilical hernia Pelvis: No calcified bladder stone. Pessary in place. Reproductive organs are unremarkable on limited CT evaluation. Bones: No acute or suspicious osseous finding. There are degenerative changes. IMPRESSION: 6 x 7 mm right proximal ureter stone with significant upstream pelvocaliectasis. Bilateral nonobstructing calyceal calculi also present. Increased fecal loading. No small bowel obstruction. Mild ground-glass opacities and right lower lung, possibly infectious/inflammatory. Other findings as above. Dictated by: Amando Cruz M.D. on 02/29/2024 at 21:08 MDM Narrative Medical decision making narrative: CC: Right flank pain for 24 hours Complicating co-morbidities: Prior history of kidney stones with obstruction and significant infection prior stenting Data collected from: patient Medical records reviewed: Primary care notes from March of 2023, ER visits from February 15 and November 05 are reviewed Differential considered: Pyelonephritis, kidney stone, sepsis, obstructive kidney stone with infection, diverticulitis, constipation Exam documented above, pertinent findings include: Exam is relatively benign, mild right flank pain Lab Test results independently reviewed as above. Pertinent findings: CBC is unremarkable Chemistries are reassuring Urine has red cells only, patient is currently menstruating Imaging studies independently reviewed: CT scan shows a 7 x 6 x 6 cm obstructing stone in the right proximal ureter with dilated ureter proximal to the stone Consultations: Discussion with Urology, . Given that her pain is controlled, there was no signs of infection or sepsis you will see her as an outpatient Treatments: Fluids, Toradol single dose of Dilaudid, Zofran 43-year-old woman, tamsulosin Re-evaluations: Patient is feeling much better Discussion: 43-year-old woman with recurrent kidney stone right side proximal ureter obstructing with no signs of infection. No signs of acute renal failure. Findings reviewed with her. Will discharge her home with prescriptions for tamsulosin and oxycodone along with recommendations for MiraLax to prevent constipation. Discuss the stool overload also appreciated on her CT scan today. She will follow up as an outpatient with our Urology Clinic. She has been through this before she is well aware of what to look for in terms of infection or signs of sepsis and knows that she does need to return with any of the symptoms. No additional imaging or hospitalization is required today. She is safe for discharge Discharge Plan Departure Patient Disposition: Home Clinical Impression: Kidney stone on right side Instructions: DI for Kidney Stones Activity Restrictions/Additional Instructions: Thank you for coming in today You were absolutely correct in your diagnosis, you do have a moderately large kidney stone on the right side that is causing your pain. Fortunately there was no sign of infection and no sign of worsening kidney function. Your pain has been controlled in the emergency department. You will need outpatient follow up with our urologist. Please call [facility] at [phone] to schedule an ER follow up for your obstructing kidney stone In the meantime, using 400 mg of ibuprofen (2 blkq-abp-itxenqu pills) and 1 Tylenol every 6 hours can be very helpful in controlling pain. For severe pain using 400 mg of ibuprofen and 1 Percocet we will be helpful. Percocet is a narcotic and will cause constipation, please make sure that you are using MiraLax. We did discuss the fact that you do have quite a bit of stool backing up as noticed on your CT scan today so a couple extra doses of MiraLax will likely be helpful. I have given you a prescription for tamsulosin, there is some evidence that this can help larger stones pass without additional intervention. There was minimal side effects and it is worth trying. If you do pass the stone you can stop this medication. If you are having nausea please use Zofran that you mentioned you have available at home. If you have fevers, increasing pain, vomiting because the pain can not be controlled you need to return to the ER for further evaluation. Prescriptions: New tamsulosin [Flomax] 0.4 mg capsule 0.4 mg PO BEDTIME Qty: 30 0RF oxycodone-acetaminophen 5-325 mg tablet 1 tab PO Q6H PRN (Reason: pain) Qty: 20 0RF No Action sumatriptan succinate 4 mg/0.5 mL cartridge 4 mg SUBCUT ONCE Qty: 1 0RF ukzmurkkgp-bnwgskrhtpdcy-dmlz 50-325-40 mg tablet PO phenazopyridine [Pyridium] 200 mg tablet 200 mg PO TID 0 Days Qty: 6 0RF kghvqqsufp-zrdlbwzwju-plz-cod 52-251-82-30 mg capsule See Rx Instructions .ROUTE .COMPLEX Qty: 20 0RF Dose Instruction: take 2 capsules by mouth every 6 hours if needed for pain MAX 2 DAYS PER WEEK Rx Instructions: take 2 capsules by mouth every 6 hours if needed for pain MAX 2 DAYS PER WEEK fluoxetine 40 mg capsule 80 mg PO DAILY Qty: 60 0RF Rx Instructions: patient needs appointment for future refills. rizatriptan 10 mg tablet,disintegrating 10 mg PO ONCE ondansetron 8 mg tablet,disintegrating 8 mg PO Q8H PRN (Reason: nausea/vomiting) hydroxyzine pamoate 25 mg capsule 25 mg PO BID PRN (Reason: anxiety) Qty: 60 11RF epinephrine [EpiPen] 0.3 mg/0.3 mL auto-injector 0.3 mg IM Q5-15M PRN (Reason: hypersensitivity reaction) Qty: 2 0RF Rx Instructions: do not exceed 3 doses per episode Referrals: Glendy Philip DO [Primary Care Provider] - Stand Alone Forms: Patient Portal/API
--- NOTE | 2024-02-29 20:37 | DI.CT.S_ITS ---
PROCEDURE: CT KIDNEY URETER BLADDER (KUB) INDICATIONS: right flank pain TECHNIQUE: Axial sections were acquired from the lung bases to the pubic symphysis. Coronal and sagittal reformats were performed. For radiation dose reduction, the following was used: automated exposure control, adjustment of mA and/or kV according to patient size. COMPARISON: [facility], CT, CT KIDNEY URETER BLADDER (KUB), 09/06/2021, 13:16. FINDINGS: Image quality: Diagnostic Lower chest: Mild ground-glass opacities in the right lower lobe. No pleural effusions. Heart size is normal where visualized Liver: No contour deforming mass. The solid organs are not well evaluated without IV contrast Gallbladder and biliary system: Cholecystectomy clips. No pathologic biliary dilation Pancreas: No ductal dilation Spleen: Nonenlarged Adrenals: No discrete nodules Kidneys: 7 x 6 x 6 mm right proximal ureter calcified stone. Other bilateral nonobstructing calculi are seen bilaterally under 5 mm. There is moderate to severe pelvocaliectasis. Suspected phlebolith is again seen adjacent to the left UVJ, without left-sided hydronephrosis There are possible renal cysts, not well evaluated on this study Vessels and lymph nodes: No abdominal aortic aneurysm. No pathologic lymph nodes by size criteria. Bowel and peritoneum: No evidence of small bowel obstruction. There is increased fecal loading in the proximal and mid colon. No pathologic ascites Body wall: Small fat and omentum containing umbilical hernia Pelvis: No calcified bladder stone. Pessary in place. Reproductive organs are unremarkable on limited CT evaluation. Bones: No acute or suspicious osseous finding. There are degenerative changes. IMPRESSION: 6 x 7 mm right proximal ureter stone with significant upstream pelvocaliectasis. Bilateral nonobstructing calyceal calculi also present. Increased fecal loading. No small bowel obstruction. Mild ground-glass opacities and right lower lung, possibly infectious/inflammatory. Other findings as above. Dictated by: Amando Cruz M.D. on 02/29/2024 at 21:08 Approved by: Amando Cruz M.D. on 02/29/2024 at 21:12
[2024-02-29] MEDS: ONDANSETRON 4 MG/2 ML INJ IV (20:57)
[2024-02-29] MEDS: HYDROMORPHONE 0.5 MG INJ IV (20:57)
[2024-02-29] MEDS: SODIUM CHLORIDE 0.9% 1,000 ML 1000 ML IV (20:58)
[2024-02-29] MEDS: TAMSULOSIN 0.4 MG CAPSULE PO (21:49)
[2024-02-29 22:00] VITALS: BP 134/81; PULSE 75; RESP 16; O2SAT 99
== END 2024-02-29 21:55 | disposition home or self-care (01) ==
PROVIDERS: Emergency Medicine; Emergency Provider Emergency Medicine; Family Provider Family Medicine; PCP Family Medicine
DX: N20.0 Calculus of kidney (principal)
CPT/HCPCS: 36415; 74176; 80053; 81003; 81015; 81025; 85025; 96361; 96372; 96374; 96375; 99284; J1170; J1885; J2405

== ENCOUNTER → 2024-03-04 09:36 | Outpatient (CLI) | payer OTHER, MEDICAID, SELFPAY | PROVIDERS: Family Provider Family Medicine; PCP Family Medicine; Visit Provider Urology | DX: R39.9 Unspecified symptoms and signs involving the genitourinary system (principal) | CPT/HCPCS: 87086 ==

== ENCOUNTER 2024-03-08 07:42 | Day surgery (SDC) | payer OTHER, MEDICAID, SELFPAY ==
[2024-03-06 15:02] VITALS: BMI 24.9
--- NOTE | 2024-03-08 | DI.RAD.S_ITS ---
PROCEDURE: XR ABDOMEN 1V INDICATIONS: RT STENT PLACEMENT TECHNIQUE: 3 digital images were obtained from the OR following right ureteral stent placement. COMPARISON: None. FINDINGS: Images were coned to the right abdomen The superior portion of the stent is seen within the superior calices. Distal portion overlies the expected location of the bladder which is partially opacified with contrast. Mild hydronephrosis noted Impression: Right ureteral stent in satisfactory position as described. Dictated by: Ant Burrows M.D. on 03/11/2024 at 8:30 Approved by: Ant Burrows M.D. on 03/11/2024 at 8:33
[2024-03-08] MEDS: ACETAMINOPHEN 325 MG TABLET 975 MG PO (08:24)
[2024-03-08] MEDS: LACTATED RINGERS 1,000 ML 21 ML IV ×2 (08:26→09:36)
[2024-03-08 08:29] VITALS: BP 122/80; PULSE 79; RESP 18; TEMP 36.6; O2SAT 100; BMI 24.9
--- NOTE | 2024-03-08 08:50 | PM.PREOP ---
Pre-operative Note COVID-19 COVID-19 status: Not tested Interval Note History & Physical reviewed/Exam performed by Physician: Yes Changes to H&P: No
[2024-03-08] MEDS: CLINDAMYCIN 900 MG/50 ML PIGGYBACK 50 MG IV (08:57)
--- NOTE | 2024-03-08 09:00 | SUR.OPER ---
Lithotomy on padded OR bed, head on pillow, arms secured on padded arm boards at <90 degrees abduction. Legs secured in padded yellow fins stirrups.
[2024-03-08] MEDS: iopamidoL 30 ML VIAL INJ (09:13)
[2024-03-08] MEDS: ALBUTEROL/IPRATROPIUM 3 ML AMPUL INH (10:15)
[2024-03-08 10:17] VITALS: BP 122/59; PULSE 110; RESP 16; TEMP 36.7; O2SAT 100
--- NOTE | 2024-03-08 10:20 | PM.OP.1 ---
Procedure & Clinicians Procedure: Cystoscopy Right retrograde ureteropyelogram Right ureteroscopy, laser lithotripsy Right ureteral stent placement Intraoperative interpretation of fluoroscopic images, total time < 1 hour, all images saved to PACS Same procedure as scheduled: Yes Indications: 43 y/o F w/ a symptomatic right proximal ureterolith. Surgeon: Anthony Cota Click Yes if Unassisted: Yes Anesthesia Type: General Operative Notes Findings: Moderate sized right proximal ureterolith Closure Type: not applicable Specimen(s): other (Kidney stone) Estimated Blood Loss (mL): 3 Blood products transfused: none Procedure in detail: Patient was identified in the preoperative holding area and consent confirmed. She was then brought to the operating room where general anesthesia was induced.? She was placed in the low lithotomy position. She was then prepped and draped in the usual sterile fashion. A surgical timeout was conducted and all were in agreement. Access to the bladder was obtained via a 30 degree cystoscope.? Complete cystoscopy was then performed and no concerning bladder masses or lesions were appreciated.? Bilateral ureteral orifices were easily identified and noted to be orthotopic in nature.? The right ureteral orifice was then cannulated using a 0.035 sensor tip ureteral guidewire and a 5Fr ureteral catheter was advanced over the guidewire and into the distal right ureter.? The guidewire was then removed and a retrograde ureteropyelogram was performed which noted unremarkable right ureteral and renal architecture. The ureteral guidewire was then readvanced through the ureteral catheter and into the right renal pelvis.? The ureteral catheter was then removed and a semirigid ureteroscope was easily advanced into her right ureter alongside the guidewire and to the level of the stone.? A 200 micron laser fiber was then utilized to perform laser lithotripsy.? All stone fragments >1mm in size were removed via the stone basket and sent for chemical analysis.? The ureter was then directly visualized upon removal of the ureteroscope and noted to be stone free.? A 12/14Fr ureteral access sheath was then advanced over the guidewire and into the right proximal ureter and the inner obturator and guidewire were removed. The flexible ureteroscope was then advanced through the access sheath and into her right renal collecting system. She was noted to have Bobby's plaques and submucosal calcifications within virtually every calyx, however, no stone fragments or additional stones were noted. A retrograde pyelogram was then performed through the ureteroscope and no contrast extravasation was noted. The ureteral guidewire was then advanced through the ureteroscope and into the right renal pelvis. The ureter was directly visualized upon removal of the ureteroscope and access sheath and noted to be stone free. A 6Fr multi-length JJ ureteral stent with string was then advanced over the ureteral guidewire.? Upon removal of the guidewire, a good curl was noted in the right renal pelvis and the bladder using fluoroscopy.? The bladder was then drained.? Anesthesia was reversed, she was extubated in the OR and transferred to the PACU in stable condition for recovery. Complications: none Post-operative Condition: stable Disposition: PACU Plan for aftercare: Discharge home from PACU. She will return to clinic in 8 weeks to review her RBUS and stone analysis findings. She will remove her stent at home on the morning of 11 Mar 2024.
[2024-03-08 10:22] VITALS: BP 119/67; PULSE 98; RESP 16; O2SAT 100
[2024-03-08 10:27] VITALS: BP 118/68; PULSE 99; RESP 16; TEMP 36.8; O2SAT 98
[2024-03-08] MEDS: OXYCODONE IR 5 MG TABLET PO (10:28)
[2024-03-08] MEDS: PHENAZOPYRIDINE 100 MG TABLET 200 MG PO (10:30)
[2024-03-08 10:32] VITALS: BP 120/70; PULSE 96; RESP 16; TEMP 36.2; O2SAT 100
[2024-03-08 10:43] VITALS: BP 122/72; PULSE 88; RESP 16; TEMP 36.2; O2SAT 98
== END 2024-03-08 10:55 | disposition home or self-care (01) ==
PROVIDERS: Family Provider Family Medicine; PCP Family Medicine; Referring Provider Urology; Visit Provider Urology
PROC: (CPT 52356; principal; 2024-03-08 09:45)
DX: N20.1 Calculus of ureter (principal); N28.89 Other specified disorders of kidney and ureter
CPT/HCPCS: 52356; 74018; 76000; 82365; J1100; J1885; J2405; J2704; J3010; Q9967

== ENCOUNTER 2024-03-12 01:32 | Emergency (ER) | payer OTHER, MEDICAID, SELFPAY ==
[2024-03-12] VITALS (9 sets, daily range): BP systolic 120–145; BP diastolic 61–89; PULSE 68–77; RESP 16; O2SAT 97–99; BMI 24.9
--- NOTE | 2024-03-12 01:50 | ED.FEMALEGU ---
HPI - Female Genitourinary General Chief complaint: Urogenital-Female Stated complaint: kidney stones, sick to stomach Time Seen by Provider: 03/12/24 01:46 Source: patient Mode of arrival: Ambulatory History of Present Illness HPI Narrative: 43yoF with PMH renal stones, migraines presents for severe R flank pain. Recently diagnosed with 6x7mm R sided kidney stone, underwent lithotripsy and stent placement 03/[address] Cota at [facility]. Patient was instructed to remove the stent today, which she did this morning. Patient states that she initially had no issues, but as the day progressed she developed increasing pain. Not controlled with prescribed oxycodone. On the way to the ED patient vomited. Related Data Home Medications Medication Instructions Recorded Confirmed rizatriptan 10 mg disintegrating 10 mg PO ONCE Migraines 02/03/23 03/08/24 tablet lrnjtzjahu-wdjewqwsdbkjc-biyoadhy tab PO 10/26/23 03/04/24 50 mg-325 mg-40 mg tablet Previous Rx's Medication Instructions Recorded butalbital 50 mg-acetaminophen 325 See Rx Instructions .Route 02/18/20 mg-caffeine 40 mg-codeine 30 mg cap .COMPLEX #20 caps sumatriptan succinate 4 mg/0.5 mL 4 mg (0.5 mL) SUBCUT ONCE #1 mL 02/15/22 subcutaneous cartridge (refill) hydroxyzine pamoate 25 mg capsule 25 mg PO BID PRN anxiety #60 caps 03/21/23 epinephrine 0.3 mg/0.3 mL 0.3 mg (0.3 mL) IM Q5-15M PRN 11/06/23 injection, auto-injector (EpiPen) hypersensitivity reaction #2 ea fluoxetine 40 mg capsule 80 mg (2 x 40 mg) PO DAILY #60 caps 01/26/24 tamsulosin 0.4 mg capsule (Flomax) 0.4 mg PO BEDTIME #30 caps 02/29/24 ondansetron 4 mg disintegrating 4 mg PO TID-QID PRN nausea and 03/04/24 tablet vomiting #20 tabs oxycodone 5 mg tablet 5 mg PO Q8H PRN pain #7 tabs 03/08/24 cefpodoxime 200 mg tablet 200 mg PO Q12H #20 tabs 03/12/24 Allergies Allergy/AdvReac Type Severity Reaction Status Date / Time cefaclor [CEFACLOR] Allergy Intermediate HIVES Verified 10/26/23 10:16 Patient History Medical History Primary stress urinary incontinence Obesity (BMI 30.0-34.9) Kidney stones Abnormal Pap smear of cervix depression DVT (deep vein thrombosis) in (2014) 4 para 4 Hyperemesis gravidarum Anxiety and depression Migraines Surgical History S/P cholecystectomy (~2021) Hx of cystoscopy (11/24/20) History of dental surgery H/O tubal ligation History of delivery Status post delivery (2016) Status post loop electrosurgical excision procedure (LEEP) of cervix (2012) Family History Mother Hypertension Cancer Migraines Father Hypertension Chronic pancreatitis Kidney stone Grandmother Cancer Diabetes mellitus Brother Eczema Migraines alcohol intake frequency: 0-2 drinks per day Substance Use Type: does not use Exam Initial Vital Signs Initial Vital Signs: Vital Signs Pulse Rate 75 03/12/24 01:40 Respiratory Rate 16 03/12/24 01:40 Blood Pressure 145/79 H 03/12/24 01:40 Pulse Oximetry 97 03/12/24 01:40 Oxygen Delivery Method Room Air 03/12/24 01:40 Const: Awake, alert, in pain, tearful Cardiac: regular rate, regular rhythm RESP: unlabored, clear bilaterally, no wheezing GI: Soft, nontender, nondistended Back: R sided CVA tenderness to percussion Skin: Warm, Dry, intact, no rashes Neuro: AO x3, CN II-XII grossly intact, moves all extremities Course Orders Ordered: ED Orders 03/12/24 01:40 Test Urine Stat Urine Culture Stat Urine Microscopic Stat 03/12/24 01:53 CT abdomen pelvis w con Stat 03/12/24 02:05 CBC Auto Diff [Complete Blood Count AUTO DIFF] Stat CMP [Comprehensive Metabolic Panel] Stat Discontinued Medications Sodium Chloride (Normal Saline 0.9%) 1,000 mls @ 1,000 mls/hr IV BOLUS ONE Stop: 03/12/24 02:46 Last Infusion: 03/12/24 03:39 Dose: Infused Documented By: Admin: 03/12/24 02:17 Dose: 1,000 mls/hr Documented By: CAMRON Ceftriaxone Sodium 2,000 mg/ (Sodium Chloride) 100 mls @ 200 mls/hr IV NOW ONE Stop: 03/12/24 03:32 Last Infusion: 03/12/24 04:24 Dose: Infused Documented By: Admin: 03/12/24 03:44 Dose: 200 mls/hr Documented By: Ketorolac Tromethamine (Ketorolac 30 Mg/Ml Vial) 15 mg IV NOW ONE Stop: 03/12/24 01:48 Last Admin: 03/12/24 02:16 Dose: 15 mg Documented By: CAMRON Morphine Sulfate (Morphine 4 Mg/Ml Inj) 4 mg IV NOW ONE Stop: 03/12/24 04:04 Last Admin: 03/12/24 04:08 Dose: 4 mg Documented By: Vital Signs Vital signs: Vital Signs - 8 hr 03/12/24 01:40 03/12/24 01:58 03/12/24 02:00 Pulse Rate 75 74 77 Respiratory Rate 16 Blood Pressure 145/79 H Pulse Oximetry 97 97 98 Oxygen Delivery Method Room Air 03/12/24 02:02 03/12/24 02:02 03/12/24 02:30 Pulse Rate 76 71 Respiratory Rate Blood Pressure 141/89 H Pulse Oximetry 98 99 Oxygen Delivery Method Room Air 03/12/24 03:00 03/12/24 03:30 03/12/24 03:48 Pulse Rate 71 77 Respiratory Rate Blood Pressure 121/61 Pulse Oximetry 98 97 Oxygen Delivery Method 03/12/24 03:48 03/12/24 04:00 03/12/24 04:00 Pulse Rate 75 68 Respiratory Rate Blood Pressure 120/70 Pulse Oximetry 98 97 Oxygen Delivery Method Room Air MDM - Female Genitourinary Lab Data 03/12/24 02:05 03/12/24 02:05 Labs: Lab Results 03/12/24 03/12/24 Range/Units 01:40 02:05 WBC 15.7 H (4.5-11.0) X10^3/uL RBC 3.83 L (4.0-5.2) X10^6/uL Hgb 11.8 L (12.0-16.0) g/dL Hct 34.8 L (36-46) % MCV 90.9 (80-100) fL MCH 30.7 (26-34) PG MCHC 33.8 (30-36) % RDW 13.4 (11.6-14.8) % Plt Count 289 (150-400) X10^3/uL Neut % (Auto) 89.3 H (50-75) % Lymph % (Auto) 6.2 L (25-40) % [place] % (Auto) 3.8 (3-14) % Eos % (Auto) 0.6 L (2-4) % Baso % (Auto) 0.1 (0-2) % Neut # (Auto) 44689 H (2823-1962) /uL Lymph # (Auto) 1000 L (3228-2983) /uL [place] # (Auto) 600 (0-900) /uL Eos # (Auto) 100 (0-450) /uL Baso # (Auto) 0 (0-100) /uL Sodium 134 L (137-145) mmol/L Potassium 4.2 (3.4-5.1) mmol/L Chloride 106 (98-107) mmol/L Carbon Dioxide 24 (22-32) mmol/L BUN 17 (7-17) mg/dL Creatinine 0.90 (0.52-1.04) mg/dL Estimated GFR > 60 (>60) mL/min BUN/Creatinine Ratio 18.9 (6-22) Glucose 111 H (70-100) mg/dL Calcium 9.1 (8.4-10.2) mg/dL Total Bilirubin 0.6 (0.2-1.3) mg/dL AST 32 (14-36) IU/L ALT 39 H (<35) IU/L Alkaline Phosphatase 62 (38-126) U/L Total Protein 6.6 (6.3-8.2) g/dL Albumin 3.9 (3.5-5.0) g/dL Globulin 2.7 (1.7-4.1) g/dL Albumin/Globulin Ratio 1.4 (1.0-2.8) Urine RBC >100/hpf H (0-5/HPF) Urine WBC 10-30/hpf H (0-5/HPF) Ur Squamous Epith Cells 1-5 /hpf (0-5/HPF) Urine Bacteria Moderate (10-30) H (None) Urine Mucus 2+ H (Negative) Ur Culture Indicated? Specimen cultured Vol Urine Centrifuged 10ml (spun) Urine Test Negative (Negative) Point of Care Testing Test Results Negative Urine Dip Bedside Urine Glucose Negative Bedside Urine Bilirubin + 1 Bedside Urine Ketone - Negative Urine Specific [place] 1.015 Bedside Urine Occult Blood +++ Bedside Urine pH 7.0 Bedside Urine Protein + 30 Bedside Urine Urobilinogen +/- 1mg Bedside Urine Nitrite + Positive Bedside Urine Leukocytes +++ 500 Esterase MDM Narrative Medical decision making narrative: R flank pain, recent stent removal from urologic procedure. Hemodynamically stable but does appear to be in significant pain. Nursing staff had difficutly with IV access, US guided IV placed by myself in R AC. Laboratory work and CT imaging ordered. CT with contrast ordered to evaluate for postoperative abscess or bleeding. Laboratory work shows new leukocytosis with WBC count 15.7, hemoglobin 11.8, platelets 289, sodium 134, potassium 4.2, creatinine stable at 0.90, normal liver enzymes. CT of the abdomen and pelvis shows hydronephrosis on the right-hand side, however when compared to previous CT from 02/26 it was improved and the stone is no longer present. Urinalysis has WBCs, bacteria, RBCs present. RBCs likely secondary to stent removal. Question if patient has pyelonephritis contributing to her symptoms. Patient reassessed, states she feels much better after receiving Toradol. She was informed of her lab and imaging findings. She was given a dose of Rocephin in the emergency department and discharged on cefpodoxime. Patient reports allergy to cefaclor, however the R chain is different in cefpodoxime and so I do not anticipate an allergic reaction. Patient is strongly counseled to follow up with her urologist during business hours. ED return precautions discussed at bedside. Discharge Plan Departure Patient Disposition: Home Clinical Impression: Acute flank pain, Bacteriuria Instructions: DI for Kidney Infection Activity Restrictions/Additional Instructions: Your laboratory work today showed an increase in your white blood cell count compared to previous blood work. Your kidney function is stable. It did appear that you have signs of infection on your urine, which could be contributing to your flank pain. Overall your CT has improved compared to prior and your stone is no longer present. Continue to take all of your medications as prescribed. In addition an antibiotic has been sent to your pharmacy, finish all this medication even if you feel improved. Follow up with your Urologist Prescriptions: New cefpodoxime 200 mg tablet 200 mg PO Q12H Qty: 20 0RF Rx Instructions: must administer with a meal/food No Action sumatriptan succinate 4 mg/0.5 mL cartridge 4 mg SUBCUT ONCE Qty: 1 0RF ttrkewelcu-htucqqsjeqxrb-gnpi 50-325-40 mg tablet PO jumccfedow-kctmnmfeku-asp-cod 15-337-28-30 mg capsule See Rx Instructions .ROUTE .COMPLEX Qty: 20 0RF Dose Instruction: take 2 capsules by mouth every 6 hours if needed for pain MAX 2 DAYS PER WEEK Rx Instructions: take 2 capsules by mouth every 6 hours if needed for pain MAX 2 DAYS PER WEEK fluoxetine 40 mg capsule 80 mg PO DAILY Qty: 60 0RF Rx Instructions: patient needs appointment for future refills. ondansetron 4 mg tablet,disintegrating 4 mg PO TID-QID PRN (Reason: nausea and vomiting) Qty: 20 0RF rizatriptan 10 mg tablet,disintegrating 10 mg PO ONCE hydroxyzine pamoate 25 mg capsule 25 mg PO BID PRN (Reason: anxiety) Qty: 60 11RF tamsulosin [Flomax] 0.4 mg capsule 0.4 mg PO BEDTIME Qty: 30 0RF oxycodone 5 mg tablet 5 mg PO Q8H PRN (Reason: pain) Qty: 7 0RF epinephrine [EpiPen] 0.3 mg/0.3 mL auto-injector 0.3 mg IM Q5-15M PRN (Reason: hypersensitivity reaction) Qty: 2 0RF Rx Instructions: do not exceed 3 doses per episode Referrals: Glendy Philip DO [Primary Care Provider] - Stand Alone Forms: Patient Portal/API
--- NOTE | 2024-03-12 01:51 | PC.NURSE ---
pt had lithotripsy on Monday she pulled the stint today as she was instructed, and later started having pain in her flank the pain continued to increase in severity even after taking her pain medication, pt states she has been drinking plenty of water, pt very tearful this is her 2nd lithotripsy but the 1st stint she has had
--- NOTE | 2024-03-12 01:53 | DI.CT.S_ITS ---
PROCEDURE: CT ABDOMEN PELVIS W CON INDICATIONS: R FLANK PAIN, RECENT STONE SURGERY R SIDE TECHNIQUE: After the administration of intravenous contrast, axial sections acquired from the lung bases to the pubic symphysis. Coronal and sagittal reformats were performed. For radiation dose reduction, the following was used: automated exposure control, adjustment of mA and/or kV according to patient size. COMPARISON: [facility], CT, CT KIDNEY URETER BLADDER (KUB), 02/29/2024, 20:42. FINDINGS: Image quality: Diagnostic. Lower Chest: No significant findings. ABDOMEN: Liver: No solid mass. Subcentimeter hypoattenuating lesion in segment 5, too small to characterize by CT. Gallbladder: Absent. Biliary ducts: No biliary dilation. Pancreas: No ductal dilation. Spleen: Size is within normal limits. Adrenal Glands: No adrenal nodules. Kidneys and Ureters: Persistent moderate right-sided hydronephrosis and hydroureter. The obstructing stone in the right UVJ is no longer present. There is right-sided urothelial wall thickening, delayed right-sided nephrogram and right-sided perinephric fat stranding. large burden of bilateral, punctate, nonobstructing nephrolithiasis. Stomach and Bowel: Normal colonic caliber, without significant wall thickening. Peritoneum: Small volume free fluid in the pelvis. Ventral Wall: Small umbilical hernia containing fat. Abdominal Nodes: No retroperitoneal or mesenteric adenopathy by size criteria. Vessels: Aorta and inferior vena cava are normal in size. PELVIS: Pelvic Organs: Unremarkable. Bladder: No bladder wall thickening, accounting for underdistention. Pelvic Nodes: No enlarged lymph nodes. Miscellaneous: No inguinal hernias are seen. Bones: No aggressive osseous abnormality. IMPRESSION: Interval removal of the right UPJ stone. Persistent moderate right-sided hydronephrosis and hydroureter. Periureteric fat stranding is present, which may indicate infection or residual inflammation. Correlate with urinalysis. Agree with preliminary report. Dictated by: River Au M.D. on 03/12/2024 at 7:56 Approved by: River Au M.D. on 03/12/2024 at 8:05
[2024-03-12 01:56] LABS: RBC Urine >100/HPF (0-5/HPF); Urine Volume 10mL (spun)
[2024-03-12 01:57] LABS: Bacteria Urine Moderate (10-30); Mucus Urine 2+ (Negative); Squamous Epithelial Cell Urine 1-5 /HPF (0-5/HPF); WBC Urine 10-30/HPF (0-5/HPF)
[2024-03-12 01:58] LABS: Culture Indicated Urine Specimen Cultured
[2024-03-12 02:04] LABS: Pregnancy Test Urine Negative (Negative)
[2024-03-12] MEDS: KETOROLAC 30 MG/ML VIAL 15 MG IV (02:16)
[2024-03-12] MEDS: SODIUM CHLORIDE 0.9% 1,000 ML 1000 ML IV (02:17)
[2024-03-12 02:20] LABS: Add Manual Diff / Slide Review NO; Basophils Absolute Auto 0 /uL (0-100); Basophils Percent Auto 0.1 % (0-2); Eosinophils Absolute Auto 100 /uL (0-450); Eosinophils Percent Auto 0.6 % (2-4); Hematocrit 34.8 % (36-46); Hemoglobin 11.8 g/dL (12.0-16.0); Lymphocytes Absolute Auto 1000 /uL (1100-4500); Lymphocytes Percent Auto 6.2 % (25-40); Mean Corpuscular HGB Conc 33.8 % (30-36); Mean Corpuscular Hemoglobin 30.7 PG (26-34); Mean Corpuscular Volume 90.9 fL (80-100); Monocytes Absolute Auto 600 /uL (0-900); Monocytes Percent Auto 3.8 % (3-14); Neutrophils Absolute Auto 14000 /uL (1500-7000); Neutrophils Percent Auto 89.3 % (50-75); Platelet Count 289 X10^3/uL (150-400); Red Blood Cell Count 3.83 X10^6/uL (4.0-5.2); Red Cell Distribution Width 13.4 % (11.6-14.8); White Blood Cell Count 15.7 X10^3/uL (4.5-11.0)
[2024-03-12 02:31] LABS: Alanine Aminotransferase 39 IU/L (<35); Albumin 3.9 g/dL (3.5-5.0); Albumin Globulin Ratio 1.4 (1.0-2.8); Alkaline Phosphatase 62 U/L (38-126); Aspartate Aminotransferase 32 IU/L (14-36); BUN Creatinine Ratio 18.9 (6-22); Bilirubin Total 0.6 mg/dL (0.2-1.3); Blood Urea Nitrogen 17 mg/dL (7-17); Calcium 9.1 mg/dL (8.4-10.2); Carbon Dioxide 24 mmol/L (22-32); Chloride 106 mmol/L (98-107); Estimated Glomerular Filt Rate > 60 mL/min (>60); Globulin 2.7 g/dL (1.7-4.1); Glucose 111 mg/dL (70-100); HEMOLYSIS 16 (0-50); Potassium 4.2 mmol/L (3.4-5.1); Sodium 134 mmol/L (137-145); Total Protein 6.6 g/dL (6.3-8.2)
[2024-03-12] MEDS: cefTRIAXone 2,000 MG in SODIUM CHLORIDE 0.9% 100 ML 200 MG IV (03:44)
[2024-03-12] MEDS: MORPHINE 4 MG/ML INJ IV (04:08)
--- NOTE | 2024-03-12 18:31 | PC.NURSE ---
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 patient reports that she tried to call the urology after hours line but there was no option for her to speak with anyone or leave a message. this RN called Dr. Cota. Dr. Cota reports he was going to call in a new prescription. this RN called the patient and left a message that Dr. Cota was calling in a new prescription into [facility] in [place].
== END 2024-03-12 04:26 | disposition home or self-care (01) ==
PROVIDERS: Emergency Provider Emergency Medicine; Family Provider Family Medicine; PCP Family Medicine
DX: R10.9 Unspecified abdominal pain (principal); R82.71 Bacteriuria; Z87.442 Personal history of urinary calculi
CPT/HCPCS: 36415; 74177; 80053; 81003; 81015; 81025; 85025; 87086; 96361; 96365; 96375; 99284; J0696; J1885; J2270; Q9967

== ENCOUNTER 2024-03-12 09:10 | Day surgery (SDC) | payer OTHER, MEDICAID, SELFPAY ==
[2024-03-12] VITALS (12 sets, daily range): BP systolic 96–163; BP diastolic 62–91; PULSE 66–95; RESP 16–22; TEMP 36.7–37.2; O2SAT 95–99; BMI 24.9
--- NOTE | 2024-03-12 | DI.RAD.S_ITS ---
PROCEDURE: XR ABDOMEN 1V INDICATIONS: rt stent placement COMPARISON: [facility], CR, XR ABDOMEN 1V, 03/08/2024, 10:01. FINDINGS: Intraoperative images demonstrate opacification of a dilated right renal collecting system, along with an intraluminal pigtail catheter with the distal tips at the level of the renal pelvis and the urinary bladder. IMPRESSION: Expected placement of a right ureteral stent. Please see the operative report for further details. Dictated by: Tucker Lovell M.D. on 03/12/2024 at 17:15 Approved by: Tucker Lovell M.D. on 03/12/2024 at 17:16
--- NOTE | 2024-03-12 09:47 | ED_ITS ---
HPI - Abdominal Pain General Chief Complaint: Urogenital-Female Stated Complaint: Throwing up, pain Time Seen by Provider: 03/12/24 09:46 History of Present Illness HPI narrative: Patient is a 43-year-old female history of renal stones migraines presenting for persistent right flank pain. Was seen here previously. Review of notes shows that patient was diagnosed with a 6 x 7 mm right kidney stone who underwent lithotripsy and stent on 03/[address] Cota. Patient did remove stent as instructed. Lab work did show leukocytosis but normal creatinine. CT did show hydronephrosis of the right side but with no stone. Urinalysis did show WBCs bacteria, was given dose of Rocephin discharged on cefpodoxime. Patient states that her pain was controlled until around 7:00 a.m. today, did take her off the again without any relief, states that she did not have time to get her antibiotics. Has had episodes of nonbilious nonbloody emesis secondary to the pain. No trauma no falls. Related Data Home Medications Medication Instructions Recorded Confirmed rizatriptan 10 mg disintegrating 10 mg PO ONCE Migraines 02/03/23 03/08/24 tablet cxwkbwcmuj-nvdcjbxkwyzoz-ysuylijg tab PO 10/26/23 03/04/24 50 mg-325 mg-40 mg tablet Previous Rx's Medication Instructions Recorded butalbital 50 mg-acetaminophen 325 See Rx Instructions .Route 02/18/20 mg-caffeine 40 mg-codeine 30 mg cap .COMPLEX #20 caps sumatriptan succinate 4 mg/0.5 mL 4 mg (0.5 mL) SUBCUT ONCE #1 mL 02/15/22 subcutaneous cartridge (refill) hydroxyzine pamoate 25 mg capsule 25 mg PO BID PRN anxiety #60 caps 03/21/23 epinephrine 0.3 mg/0.3 mL 0.3 mg (0.3 mL) IM Q5-15M PRN 11/06/23 injection, auto-injector (EpiPen) hypersensitivity reaction #2 ea fluoxetine 40 mg capsule 80 mg (2 x 40 mg) PO DAILY #60 caps 01/26/24 tamsulosin 0.4 mg capsule (Flomax) 0.4 mg PO BEDTIME #30 caps 02/29/24 ondansetron 4 mg disintegrating 4 mg PO TID-QID PRN nausea and 03/04/24 tablet vomiting #20 tabs oxycodone 5 mg tablet 5 mg PO Q8H PRN pain #7 tabs 03/08/24 cefpodoxime 200 mg tablet 200 mg PO Q12H #20 tabs 03/12/24 Allergies Allergy/AdvReac Type Severity Reaction Status Date / Time cefaclor [CEFACLOR] Allergy Intermediate HIVES Verified 10/26/23 10:16 Review of Systems Review of Systems Narrative: HEENT: Denies headache, eye drainage, eye irritation, head trauma, sore throat, voice change Cardiovascular: Denies any chest pain, palpitations, shortness of breath, tachycardia Respiratory: Denies any shortness of breath, cough, wheeze, stridor GI/: Denies any abdominal pain, nausea, vomiting, diarrhea, bright red blood per rectum, melanotic stools, urinary frequency, urinary retention, dysuria, hematuria, positive right flank pain MSK: Denies any joint pain, muscle pains, swelling Skin: Denies any rashes, lesions, discoloration Neuro: Denies any headache, lightheadedness, dizziness, fainting, weakness Psych: Denies SI/HI Patient History Medical History Primary stress urinary incontinence Obesity (BMI 30.0-34.9) Kidney stones Abnormal Pap smear of cervix depression DVT (deep vein thrombosis) in (2014) 4 para 4 Hyperemesis gravidarum Anxiety and depression Migraines Surgical History S/P cholecystectomy (~2021) Hx of cystoscopy (11/24/20) History of dental surgery H/O tubal ligation History of delivery Status post delivery (2016) Status post loop electrosurgical excision procedure (LEEP) of cervix (2012) Family History Mother Hypertension Cancer Migraines Father Hypertension Chronic pancreatitis Kidney stone Grandmother Cancer Diabetes mellitus Brother Eczema Migraines Social History marital status: number of children: 4 household members: spouse and children occupational status: other Smoking Status: Never smoker alcohol intake: former substance use type: does not use caffeine: Yes Smoking Status: Never smoker alcohol intake frequency: 0-2 drinks per day Substance Use Type: does not use Exam Narrative Exam Narrative: General: Cooperative, comfortable, well-developed, patient laying on right side lateral recumbent position and pain HEENT: Normocephalic, atraumatic, PERRLA, normal sclera, eyelids normal, Neck: Active full range of motion, atraumatic Chest: Normal to inspection, negative crepitus, no overlying erythema ecchymosis Respiratory: Normal respiratory effort, not in acute respiratory distress, clear to auscultation bilaterally negative cough, wheeze, tachypnea, rhonchi, rales Cardiology: Regular rate rhythm negative gallop, murmur, rubs GI/: Normal to inspection, soft, nonrigid, no tenderness to palpation, exam deferred MSK: Full range of active range of motion of all 4 extremities, atraumatic Skin: No rashes lesions noted Neuro: Alert awake oriented x3, moves all 4 extremities spontaneously, cranial nerves intact, able to answer all questions appropriately follows commands appropriately Psych: Cooperative, negative suicidal or homicidal ideations Initial Vital Signs Initial Vital Signs: Vital Signs Temperature 98.3 F 03/12/24 09:28 Pulse Rate 81 03/12/24 09:28 Respiratory Rate 20 03/12/24 09:28 Blood Pressure 163/88 H 03/12/24 09:28 Pulse Oximetry 97 03/12/24 09:28 Oxygen Delivery Method Room Air 03/12/24 09:28 Course Orders Ordered: ED Orders 03/12/24 09:55 CBC Auto Diff [Complete Blood Count AUTO DIFF] Stat CMP [Comprehensive Metabolic Panel] Stat Lipase Stat MAG [Magnesium] Stat 03/12/24 12:45 CMP [Comprehensive Metabolic Panel] Stat Discontinued Medications Hydromorphone HCl (Hydromorphone 0.5 Mg Inj) 0.5 mg IV NOW ONE Stop: 03/12/24 11:12 Last Admin: 03/12/24 11:19 Dose: 0.5 mg Documented By: MELLISSA Hydromorphone HCl (Hydromorphone 1 Mg Inj) 1 mg IV NOW ONE Stop: 03/12/24 12:07 Last Admin: 03/12/24 12:11 Dose: 1 mg Documented By: JESSICA Sodium Chloride (Normal Saline 0.9%) 1,000 mls @ 1,000 mls/hr IV BOLUS ONE Stop: 03/12/24 10:50 Last Infusion: 03/12/24 11:07 Dose: Infused Documented By: Admin: 03/12/24 09:57 Dose: 1,000 mls/hr Documented By: WESTLEY Ketorolac Tromethamine (Ketorolac 30 Mg/Ml Vial) 15 mg IV NOW ONE Stop: 03/12/24 09:52 Last Admin: 03/12/24 09:57 Dose: 15 mg Documented By: WESTLEY Lorazepam (Lorazepam 2 Mg/Ml Inj) 1 mg IV NOW ONE Stop: 03/12/24 12:33 Last Admin: 03/12/24 12:37 Dose: 1 mg Documented By: JESSICA Morphine Sulfate (Morphine 4 Mg/Ml Inj) 4 mg IV NOW ONE Stop: 03/12/24 10:34 Last Admin: 03/12/24 10:40 Dose: 4 mg Documented By: JESSICA Ondansetron HCl (Ondansetron 4 Mg/2 Ml Inj) 4 mg IV NOW ONE Stop: 03/12/24 09:53 Last Admin: 03/12/24 09:58 Dose: 4 mg Documented By: WESTLEY Ondansetron HCl (Ondansetron 4 Mg/2 Ml Inj) 4 mg IV NOW ONE Stop: 03/12/24 12:13 Last Admin: 03/12/24 12:19 Dose: 4 mg Documented By: JESSICA Vital Signs Vital signs: Vital Signs - 8 hr 03/12/24 09:28 03/12/24 10:05 03/12/24 12:41 Temperature 98.3 F Pulse Rate 81 73 73 Respiratory Rate 20 18 Blood Pressure 163/88 H 141/68 H Pulse Oximetry 97 98 95 Oxygen Delivery Method Room Air Room Air MDM - Abdominal Pain Differential Diagnosis Differential diagnosis: Likely other (Electrolyte abnormality, pyelonephritis) Lab Data 03/12/24 09:55 03/12/24 09:55 Labs: Lab Results 03/12/24 Range/Units 09:55 WBC 15.6 H (4.5-11.0) X10^3/uL RBC 3.98 L (4.0-5.2) X10^6/uL Hgb 12.2 (12.0-16.0) g/dL Hct 36.1 (36-46) % MCV 90.8 (80-100) fL MCH 30.7 (26-34) PG MCHC 33.8 (30-36) % RDW 13.2 (11.6-14.8) % Plt Count 309 (150-400) X10^3/uL Neut % (Auto) 85.5 H (50-75) % Lymph % (Auto) 6.5 L (25-40) % [place] % (Auto) 7.0 (3-14) % Eos % (Auto) 0.9 L (2-4) % Baso % (Auto) 0.1 (0-2) % Neut # (Auto) 76507 H (6062-8197) /uL Lymph # (Auto) 1000 L (4059-0421) /uL [place] # (Auto) 1100 H (0-900) /uL Eos # (Auto) 100 (0-450) /uL Baso # (Auto) 0 (0-100) /uL Sodium 139 (137-145) mmol/L Potassium 3.9 (3.4-5.1) mmol/L Chloride 112 H (98-107) mmol/L Carbon Dioxide 19 L (22-32) mmol/L BUN 11 (7-17) mg/dL Creatinine 0.76 (0.52-1.04) mg/dL Estimated GFR > 60 (>60) mL/min BUN/Creatinine Ratio 14.5 (6-22) Glucose 111 H (70-100) mg/dL Calcium 9.1 (8.4-10.2) mg/dL Magnesium 1.9 (1.6-2.3) mg/dL Total Bilirubin 0.7 (0.2-1.3) mg/dL AST 590 H (14-36) IU/L ALT 432 H (<35) IU/L Alkaline Phosphatase 93 (38-126) U/L Total Protein 6.8 (6.3-8.2) g/dL Albumin 4.1 (3.5-5.0) g/dL Globulin 2.7 (1.7-4.1) g/dL Albumin/Globulin Ratio 1.5 (1.0-2.8) Lipase 136 (23-300) U/L MDM Narrative Medical decision making narrative: Patient is a 41-year-old female who recently had stent removal for urolithiasis yesterday. Presents for persistent right-sided flank pain was seen yesterday with CT scan showing right-sided hydro without stone, creatinine normal, did have leukocytosis and dirty urine was given Rocephin and discharged home with cefpodoxime. Patient was evaluated multiple times since presentation here in the emergency department, she has been unable to tolerate anything p.o. has had 2 need multiple rounds of antiemetics and anti analgesics to control her pain, therefore patient will be admitted to the hospital for acute pyelonephritis. The patient's management plan was discussed Dr. Moore, who agrees to admit the patient to their service and assumes care of this patient at this time. Full admission orders will be placed by the primary team. Discharge Plan Departure Patient Disposition: Admitted as Observation Clinical Impression: Pyelonephritis, Transaminitis Admit Date/Time: 03/12/24 12:49 Admit Provider: Lan Wilson
[2024-03-12] MEDS: KETOROLAC 30 MG/ML VIAL 15 MG IV ×2 (09:57→16:56)
[2024-03-12] MEDS: SODIUM CHLORIDE 0.9% 1,000 ML 1000 ML IV (09:57)
[2024-03-12 09:58] LABS: Add Manual Diff / Slide Review NO; Basophils Absolute Auto 0 /uL (0-100); Basophils Percent Auto 0.1 % (0-2); Eosinophils Absolute Auto 100 /uL (0-450); Eosinophils Percent Auto 0.9 % (2-4); Hematocrit 36.1 % (36-46); Hemoglobin 12.2 g/dL (12.0-16.0); Lymphocytes Absolute Auto 1000 /uL (1100-4500); Lymphocytes Percent Auto 6.5 % (25-40); Mean Corpuscular HGB Conc 33.8 % (30-36); Mean Corpuscular Hemoglobin 30.7 PG (26-34); Mean Corpuscular Volume 90.8 fL (80-100); Monocytes Absolute Auto 1100 /uL (0-900); Neutrophils Absolute Auto 13300 /uL (1500-7000); Neutrophils Percent Auto 85.5 % (50-75); Platelet Count 309 X10^3/uL (150-400); Red Blood Cell Count 3.98 X10^6/uL (4.0-5.2); Red Cell Distribution Width 13.2 % (11.6-14.8); White Blood Cell Count 15.6 X10^3/uL (4.5-11.0)
[2024-03-12] MEDS: ONDANSETRON 4 MG/2 ML INJ IV ×3 (09:58→14:36)
[2024-03-12 10:04] LABS: Albumin 4.1 g/dL (3.5-5.0); Albumin Globulin Ratio 1.5 (1.0-2.8); Alkaline Phosphatase 93 U/L (38-126); Aspartate Aminotransferase 590 IU/L (14-36); BUN Creatinine Ratio 14.5 (6-22); Bilirubin Total 0.7 mg/dL (0.2-1.3); Blood Urea Nitrogen 11 mg/dL (7-17); Calcium 9.1 mg/dL (8.4-10.2); Carbon Dioxide 19 mmol/L (22-32); Chloride 112 mmol/L (98-107); Estimated Glomerular Filt Rate > 60 mL/min (>60); Globulin 2.7 g/dL (1.7-4.1); Glucose 111 mg/dL (70-100); HEMOLYSIS < 15 (0-50); Lipase 136 U/L (23-300); Magnesium 1.9 mg/dL (1.6-2.3); Potassium 3.9 mmol/L (3.4-5.1); Sodium 139 mmol/L (137-145); Total Protein 6.8 g/dL (6.3-8.2)
[2024-03-12 10:09] LABS: Alanine Aminotransferase 432 IU/L (<35)
[2024-03-12] MEDS: MORPHINE 4 MG/ML INJ IV (10:40)
[2024-03-12] MEDS: HYDROMORPHONE 0.5 MG INJ IV (11:19)
[2024-03-12] MEDS: HYDROMORPHONE 1 MG INJ IV (12:11)
[2024-03-12] MEDS: LORazepam 2 MG/ML INJ 1 MG IV (12:37)
[2024-03-12 14:22] LABS: Alanine Aminotransferase 628 IU/L (<35); Albumin 3.6 g/dL (3.5-5.0); Albumin Globulin Ratio 1.7 (1.0-2.8); Alkaline Phosphatase 92 U/L (38-126); BUN Creatinine Ratio 13.9 (6-22); Blood Urea Nitrogen 11 mg/dL (7-17); Calcium 8.7 mg/dL (8.4-10.2); Carbon Dioxide 21 mmol/L (22-32); Chloride 113 mmol/L (98-107); Estimated Glomerular Filt Rate > 60 mL/min (>60); Globulin 2.1 g/dL (1.7-4.1); Glucose 106 mg/dL (70-100); HEMOLYSIS 16 (0-50); Sodium 138 mmol/L (137-145); Total Protein 5.7 g/dL (6.3-8.2)
[2024-03-12 14:32] LABS: Aspartate Aminotransferase 881 IU/L (14-36)
[2024-03-12] MEDS: LACTATED RINGERS 1,000 ML 42 ML IV (14:36)
[2024-03-12] MEDS: SCOPOLAMINE 1 PATCH TOP (14:43)
[2024-03-12] MEDS: METOCLOPRAMIDE 10 MG/2 ML INJ IV (15:03)
--- NOTE | 2024-03-12 15:32 | PM.CN ---
History of Present Illness Consult details Date Patient Seen: 03/12/24 Time Patient Seen: 14:00 Chief complaint: Throwing up, pain Narrative: 43 y/o F w/ a h/o nephrolithiasis who was noted to have a 7mm right proximal ureterolith in mid Feb 2024. She was ultimately treated with a cystoscopy and right ureteroscopy with laser lithotripsy and ureteral stent placement on 08 Mar 2024. Her procedure was otherwise unremarkable and she was discharged home immediately postoperatively. Her recovery over the weekend was unremarkable as well. She removed her right ureteral stent as instructed on the morning of 11 Mar 2024 and developed severe right flank pain with nausea/vomiting within several hours. She was evaluated in the ED and noted to have a WBC of 15.6, sCr of 0.79 and a UA consistent with recent stent placement. Her CT Abd/Pel was notable for interval removal of the right ureteral stent and persistent moderate right hydroureteronephrosis. She was ultimately treated for a urinary tract infection and discharged home. Unfortunately, her symptoms continued to worsen and she presented for repeat evaluation a few hours later. Meds Home Medications and Allergies Home Medications Medication Instructions Recorded Confirmed Type butalbital 50 mg-acetaminophen 325 See Rx Instructions .Route 02/18/20 03/08/24 Rx mg-caffeine 40 mg-codeine 30 mg cap .COMPLEX #20 caps sumatriptan succinate 4 mg/0.5 mL 4 mg (0.5 mL) SUBCUT ONCE #1 mL 02/15/22 03/08/24 Rx subcutaneous cartridge (refill) rizatriptan 10 mg disintegrating 10 mg PO ONCE Migraines 02/03/23 03/08/24 History tablet hydroxyzine pamoate 25 mg capsule 25 mg PO BID PRN anxiety #60 caps 03/21/23 03/08/24 Rx gpykrmfkyz-fjaoirawnvrbi-mukyzeqf tab PO 10/26/23 03/04/24 History 50 mg-325 mg-40 mg tablet epinephrine 0.3 mg/0.3 mL 0.3 mg (0.3 mL) IM Q5-15M PRN 11/06/23 03/08/24 Rx injection, auto-injector (EpiPen) hypersensitivity reaction #2 ea fluoxetine 40 mg capsule 80 mg (2 x 40 mg) PO DAILY #60 caps 01/26/24 03/08/24 Rx tamsulosin 0.4 mg capsule (Flomax) 0.4 mg PO BEDTIME #30 caps 02/29/24 03/08/24 Rx ondansetron 4 mg disintegrating 4 mg PO TID-QID PRN nausea and 03/04/24 03/08/24 Rx tablet vomiting #20 tabs oxycodone 5 mg tablet 5 mg PO Q8H PRN pain #7 tabs 03/08/24 Rx cefpodoxime 200 mg tablet 200 mg PO Q12H #20 tabs 03/12/24 Rx Allergies Allergy/AdvReac Type Severity Reaction Status Date / Time cefaclor [CEFACLOR] Allergy Intermediate HIVES Verified 10/26/23 10:16 Review of Systems Review of Systems Narrative: CONSTITUTIONAL: Denies weight loss, fevers, chills. HEENT: Denies change in vision, hearing. RESP: Denies SOB, cough. CV: Denies palpations, CP. GI: Denies abodminal pain, diarrhea. : Denies dysuria, hematuria, inability to void. MSK: Denies myalgia, joint pain. SKIN: Denies rash, pruritus. NEURO: Denies headache, syncope. PSYCH: Denies recent change in mood, anxiety, depression. Exam Vital Signs (past 8 hours): - 03/12/24 09:28 03/12/24 10:05 03/12/24 12:41 Temperature 98.3 F 98.6 F Pulse Rate 81 73 73 Respiratory Rate 20 18 Blood Pressure 163/88 H 141/68 H Pulse Oximetry 97 98 95 Oxygen Delivery Method Room Air Room Air 03/12/24 13:30 03/12/24 14:30 03/12/24 14:57 Temperature 99 F Pulse Rate 90 95 H 78 Respiratory Rate 18 18 18 Blood Pressure 140/83 148/67 H 155/89 H Pulse Oximetry 97 97 98 Oxygen Delivery Method Room Air Room Air Room Air Oxygen Delivery Method Room Air Narrative Exam Narrative: GEN: Alert and oriented X3. No acute distress. Well-nourished. EYES: PERRLA, EOMI. HENT: Moist mucus membranes, no scleral icterus, normal neck ROM. RESP: Unlabored breathing, equal rise and fall of chest bilaterally, no cyanosis appreciated. CV: No peripheral edema, unremarkable heart rate. ABD: Soft, non-tender, non-distended, no palpable masses. : R CVAT, no L CVAT. EXT: No edema, clubbing or cyanosis. SKIN: No rashes or lesions. NEURO: No focal neurologic deficits, CN II-XII grossly intact. PSYCH: Cooperative, appropriate mood and affect. Objective Labs 03/12/24 09:55 03/12/24 13:38 Labs: Laboratory Results - last 24 hr 03/12/24 03/12/24 09:55 13:38 WBC 15.6 H RBC 3.98 L Hgb 12.2 Hct 36.1 MCV 90.8 MCH 30.7 MCHC 33.8 RDW 13.2 Plt Count 309 Neut % (Auto) 85.5 H Lymph % (Auto) 6.5 L [place] % (Auto) 7.0 Eos % (Auto) 0.9 L Baso % (Auto) 0.1 Neut # (Auto) 97732 H Lymph # (Auto) 1000 L [place] # (Auto) 1100 H Eos # (Auto) 100 Baso # (Auto) 0 Sodium 139 138 Potassium 3.9 4.0 Chloride 112 H 113 H Carbon Dioxide 19 L 21 L BUN 11 11 Creatinine 0.76 0.79 Estimated GFR > 60 > 60 BUN/Creatinine Ratio 14.5 13.9 Glucose 111 H 106 H Calcium 9.1 8.7 Magnesium 1.9 Total Bilirubin 0.7 1.0 AST 590 H 881 H ALT 432 H 628 H Alkaline Phosphatase 93 92 Total Protein 6.8 5.7 L Albumin 4.1 3.6 Globulin 2.7 2.1 Albumin/Globulin Ratio 1.5 1.7 Lipase 136 PFSH Medical History Primary stress urinary incontinence Obesity (BMI 30.0-34.9) Kidney stones Abnormal Pap smear of cervix depression DVT (deep vein thrombosis) in (2014) 4 para 4 Hyperemesis gravidarum Anxiety and depression Migraines Surgical History S/P cholecystectomy (~2021) Hx of cystoscopy (11/24/20) History of dental surgery H/O tubal ligation History of delivery Status post delivery (2016) Status post loop electrosurgical excision procedure (LEEP) of cervix (2012) Family History Mother Hypertension Cancer Migraines Father Hypertension Chronic pancreatitis Kidney stone Grandmother Cancer Diabetes mellitus Brother Eczema Migraines Social History marital status: number of children: 4 household members: spouse and children occupational status: other Tobacco & Substance Use Smoking Status: Never smoker alcohol intake: former substance use type: does not use Diet and Exercise caffeine: Yes Assessment & Plan Assessment and plan (1) Ureteral colic: Status: Acute Plan: 43 y/o F w/ a h/o nephrolithiasis who was noted to have a 7mm right proximal ureterolith in mid Feb 2024 and ultimately underwent a cystoscopy with right ureteroscopy, laser lithotripsy and right ureteral stent placement on 08 Mar 2024. She ultimately developed right ureteral colic with resultant right flank pain, nausea and vomiting within a few hours of removing her stent. Discussed that her labs, imaging results and symptom etiology are consistent with right ureteral colic and I would recommend treatment via a cystoscopy with right ureteral stent placement. Would recommend that her stent remain in place for at least 3-4 weeks to allow for all ureteral edema to resolve. Discussed treatment options to include continued observation vs cystoscopy with right ureteral stent placement. Discussed risks of the procedure to include pain, bleeding, infection, injury to urethra/bladder/ureter, inability to access the ureter requiring discussion with Interventional Radiology regarding a possible ureteral stent placement in an antegrade fashion vs a possible nephroureteral stent and/or percutaneous nephrostomy tube, urinary tract infection, need for emergent open repair of bladder and/or ureter. She indicated understanding and all of her questions were answered to their satisfaction. Time-Based Coding :: [TOTAL MINUTES] spent with patient and on the chart (including review of chart, obtaining history, exam, reviewing outside data, placing orders, documenting exam and treatment plan, and counseling patient) on [DATE]. PROFEE Charge Codes Inpatient or Observation consultation: [id number]
--- NOTE | 2024-03-12 16:08 | SUR.OPER ---
Lithotomy on padded OR bed, head on pillow, arms secured on padded arm boards at <90 degrees abduction. Legs secured in padded yellow fins stirrups.
--- NOTE | 2024-03-12 16:35 | PM.OP.1 ---
Procedure & Clinicians Procedure: Cystoscopy Right retrograde ureteropyelogram Right ureteral stent placement Intraoperative interpretation of fluoroscopic images, total time < 1 hour, all images saved to PACS Same procedure as scheduled: Yes Indications: 43 y/o F w/ a h/o nephorlithiasis who was noted to have a 7mm right proximal ureterolith in mid Feb 2024 and ultimately underwent a cystoscopy with right ureteroscopy, laser lithotripsy and right ureteral stent placement on 08 Mar 2024. She ultimately developed right ureteral colic with resultant right flank pain, nausea and vomiting within a few hours of removing her stent. Surgeon: Anthony Cota Click Yes if Unassisted: Yes Anesthesia Type: General Operative Notes Findings: Retained contrast within right renal collecting system from CT Abd/Pel w/ contrast 12 hours earlier, right moderate hydroureteronephrosis. Closure Type: not applicable Specimen(s): none sent Estimated Blood Loss (mL): 2 Blood products transfused: none Procedure in detail: Patient was identified in the preoperative holding area and consent confirmed. She was then brought to the operating room where general anesthesia was induced.? She was then placed in the low lithotomy position. She was then prepped and draped in the usual sterile fashion. A surgical timeout was conducted and all were in agreement. Access to the bladder was obtained via a 21Fr cystoscope.? Clear yellow urine was immediately noted within the bladder.? The right ureteral orifice was easily visualized and a 0.035 sensor tip ureteral guidewire was advanced through the 5Fr ureteral catheter and into the right renal collecting system.? The ureteral guidewire was removed and a retrograde pyelogram was performed which noted moderate right hydroureteronephrosis as well as continued retention of contrast from her CT Abd/Pel nearly 12 hours prior.? The ureteral guidewire was readvanced through the ureteral catheter and into the right renal pelvis.? The ureteral catheter was then removed.? A 6Fr multi-length JJ ureteral stent without strings was then advanced over the ureteral guidewire and into the right renal collecting system.? Upon removal of the ureteral guidewire, a good curl was appreciated within the right renal pelvis upon fluoroscopy and visually within the bladder.? The bladder was then drained and the cystoscope was removed.? Anesthesia was reversed, she was extubated in the OR and transferred to the PACU in stable condition for recovery. Complications: none Post-operative Condition: stable Disposition: PACU Plan for aftercare: Discharge home from PACU. Will return to clinic in 4 weeks to have a cystoscopy and stent removal performed. Will plan on a RBUS nearly 8 weeks after removal of her ureteral stent.
== END 2024-03-12 17:24 | disposition home or self-care (01) ==
LOC: ED 09:46 → AC 12:50 → ED 14:06 → AC 14:23 → OR 03-14 11:23
PROVIDERS: Internal Medicine; Emergency Provider Student in an Organized Health Care Education/Training Program; Family Provider Family Medicine; PCP Family Medicine; Visit Provider Urology
PROC: (CPT 52332; principal; 2024-03-12 15:30)
DX: N13.30 Unspecified hydronephrosis (principal); Z98.890 Other specified postprocedural states; Z87.442 Personal history of urinary calculi
CPT/HCPCS: 52332; 36415; 74018; 74177; 76000; 80053; 81003; 81015; 81025; 83690; 83735; 85025; 87086; 96361; 96374; 96375; 96376; 99283; 99284; J0330; J0696; J1170; J1885; J2060; J2250; J2270; J2405; J2704; J2765; J3010; Q9967

== ENCOUNTER → 2024-03-25 15:53 | Outpatient (CLI) | payer OTHER, MEDICAID, SELFPAY ==
[2024-03-25 16:45] LABS: Appearance Urine UA SL CLOUDY; Bilirubin Urine UA NEGATIVE (NEGATIVE); Color Urine UA YELLOW; Glucose Urine UA NEGATIVE (Negative); Ketones Urine UA NEGATIVE (NEGATIVE); Leukocyte Esterase Urine UA 3+ (NEGATIVE); Nitrite Urine UA NEGATIVE (Negative); Occult Blood Urine UA 3+ (Negative); Protein Urine UA 2+ (Negative); Specific Gravity Urine UA <=1.005 (1.000-1.035); Urobilinogen Urine UA 0.2 E.U./dL (0.2)
[2024-03-25 16:52] LABS: Bacteria Urine Moderate (10-30); RBC Urine 5-10/HPF (0-5/HPF); Urine Volume 10mL (spun); WBC Urine 10-30/HPF (0-5/HPF)
[2024-03-25 16:53] LABS: Culture Indicated Urine Specimen Cultured; Mucus Urine 1+ (Negative); Squamous Epithelial Cell Urine 5-10 /HPF (0-5/HPF)
== END ==
PROVIDERS: Family Provider Family Medicine; PCP Family Medicine; Referring Provider Urology; Visit Provider Urology
DX: N20.0 Calculus of kidney (principal); N23 Unspecified renal colic; R82.71 Bacteriuria; N20.1 Calculus of ureter
CPT/HCPCS: 81001; 87077; 87086

== ENCOUNTER → 2024-04-09 08:10 | Outpatient (CLI) | payer OTHER, MEDICAID, SELFPAY | PROVIDERS: Family Provider Family Medicine; PCP Family Medicine; Visit Provider Urology | DX: Z46.6 Encounter for fitting and adjustment of urinary device (principal); R39.9 Unspecified symptoms and signs involving the genitourinary system; Z96.0 Presence of urogenital implants; Z87.442 Personal history of urinary calculi | CPT/HCPCS: 52310; 81002; 87086 ==

== ENCOUNTER → 2024-06-13 12:57 | Outpatient (CLI) | payer OTHER, MEDICAID, SELFPAY ==
--- NOTE | 2024-06-13 13:00 | DI.US.S_ITS ---
PROCEDURE: US RENAL COMPLETE INDICATIONS: 43 y/o F s/p right ureteroscopy, please eval for hydro. TECHNIQUE: Real-time scanning was performed of the kidneys and bladder, with image documentation. COMPARISON: None. FINDINGS: Kidneys: Kidneys are normal in size. Right kidney measures 11.0 cm long; left kidney measures 10.7 cm long. Right renal cortical thickness is 0.9 cm; left renal cortical thickness is 1.3 cm. Simple appearing bilateral renal cysts are seen measures up to 1.6 x 1.2 x 1 cm in size in upper pole right kidney and 1.6 x 1.7 x 1.8 cm in size in midpole left kidney. There is no gross nephrolithiasis. Mild right-sided hydronephrosis is seen. Prominence of right proximal ureter measures 1.2 cm in diameter. No left-sided hydronephrosis. No suspicious solid mass lesions. Bladder: Pre-void bladder volume is 319 mL. Post-void residual is 18 mL. Pre-void images demonstrate no intraluminal masses or stones. On pre-void images, bilateral ureteral jets are noted with color Doppler interrogation. (Of note, ureteral jets may not be detectable in up to 25% of cases due to insufficient differences in specific gravity between ureteral and bladder urine). Miscellaneous: No free pelvic fluid. IMPRESSION: 1. Mild right-sided hydronephrosis and proximal hydroureter. No obstructing stone is seen. No solid appearing renal lesion. No left-sided hydronephrosis. Simple appearing bilateral renal cysts as above. 2. Normal appearing urinary bladder with small amount of postvoid residual. Dictated by: Amado Gonzalez M.D. on 06/14/2024 at 9:36 Approved by: Amado Gonzalez M.D. on 06/14/2024 at 9:38
== END ==
PROVIDERS: Family Provider Family Medicine; PCP Family Medicine; Referring Provider Urology; Visit Provider Urology
DX: N13.30 Unspecified hydronephrosis (principal); N20.1 Calculus of ureter; N28.1 Cyst of kidney, acquired
CPT/HCPCS: 76770

== ENCOUNTER 2024-06-26 14:24 | Emergency (ER) | payer OTHER, SELFPAY ==
[2024-06-26] VITALS (13 sets, daily range): BP systolic 118–139; BP diastolic 70–87; PULSE 65–88; RESP 16–20; TEMP 37.1; O2SAT 97–100; BMI 24.0
--- NOTE | 2024-06-26 14:46 | EKG_ITS ---
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
[2024-06-26] MEDS: ONDANSETRON 4 MG/2 ML INJ IV (14:53)
--- NOTE | 2024-06-26 15:01 | ED_ITS ---
HPI - Nausea/Vomiting/Diarrhea General Chief complaint: Nausea/Vomiting/Diarrhea Stated complaint: MARTI, vomiting, body aches x 6days Time Seen by Provider: 06/26/24 14:52 Source: patient and family Mode of arrival: Ambulatory History of Present Illness HPI Narrative: 43-year-old woman with a history of kidney stones, migraine, episodes of pyelonephritis, anxiety and depression with multiple family members at home testing positive for influenza a about a week ago. She has been having fevers and myalgias, the fever seems to have resolved but the vomiting with diarrhea is persisting. She has not been able to eat for a number of days. Has been able to keep some water down. Comes in for further evaluation. She is complaining of myalgias, nausea vomiting headache with the initial presentation seems to have improved at this point. Related Data Home Medications Medication Instructions Recorded Confirmed rizatriptan 10 mg disintegrating 10 mg PO ONCE Migraines 02/03/23 04/09/24 tablet grtogchsrl-awafhmfwvygzm-infaaklo tab PO 10/26/23 04/09/24 50 mg-325 mg-40 mg tablet Previous Rx's Medication Instructions Recorded butalbital 50 mg-acetaminophen 325 See Rx Instructions .Route 02/18/20 mg-caffeine 40 mg-codeine 30 mg cap .COMPLEX #20 caps sumatriptan succinate 4 mg/0.5 mL 4 mg (0.5 mL) SUBCUT ONCE #1 mL 02/15/22 subcutaneous cartridge (refill) hydroxyzine pamoate 25 mg capsule 25 mg PO BID PRN anxiety #60 caps 03/21/23 epinephrine 0.3 mg/0.3 mL 0.3 mg (0.3 mL) IM Q5-15M PRN 11/06/23 injection, auto-injector (EpiPen) hypersensitivity reaction #2 ea fluoxetine 40 mg capsule 80 mg (2 x 40 mg) PO DAILY #60 caps 01/26/24 ondansetron 4 mg disintegrating 4 mg PO TID-QID PRN nausea and 03/04/24 tablet vomiting #20 tabs sulfamethoxazole 800 1 tab PO BID #10 tabs 03/12/24 mg-trimethoprim 160 mg tablet tamsulosin 0.4 mg capsule 0.4 mg PO DAILY #14 caps 03/12/24 ondansetron 4 mg disintegrating 4 mg PO Q8H PRN nausea and 06/26/24 tablet vomiting #14 tabs prochlorperazine maleate 10 mg 10 mg PO Q8H PRN nausea and 06/26/24 tablet vomiting #14 tabs Allergies Allergy/AdvReac Type Severity Reaction Status Date / Time cefaclor [CEFACLOR] Allergy Intermediate HIVES Verified 10/26/23 10:16 Sulfa (Sulfonamide AdvReac Severe Vomiting Verified 04/09/24 08:20 Antibiotics) Review of Systems Review of Systems Narrative: Pertinent positive and negative findings as per HPI Patient History Medical History Primary stress urinary incontinence Obesity (BMI 30.0-34.9) Kidney stones Abnormal Pap smear of cervix depression DVT (deep vein thrombosis) in (2014) 4 para 4 Hyperemesis gravidarum Anxiety and depression Migraines Surgical History S/P cholecystectomy (~2021) Hx of cystoscopy (11/24/20) History of dental surgery H/O tubal ligation History of delivery Status post delivery (2016) Status post loop electrosurgical excision procedure (LEEP) of cervix (2012) Family History Mother Hypertension Cancer Migraines Father Hypertension Chronic pancreatitis Kidney stone Grandmother Cancer Diabetes mellitus Brother Eczema Migraines Social History marital status: number of children: 4 household members: spouse and children occupational status: other Smoking Status: Never smoker alcohol intake: former substance use type: does not use caffeine: Yes Smoking Status: Never smoker alcohol intake frequency: 0-2 drinks per day Exam Initial Vital Signs Initial Vital Signs: Vital Signs Temperature 98.7 F 06/26/24 14:34 Pulse Rate 88 06/26/24 14:34 Respiratory Rate 20 06/26/24 14:34 Blood Pressure 119/87 06/26/24 14:34 Pulse Oximetry 100 06/26/24 14:34 Oxygen Delivery Method Room Air 06/26/24 14:34 General: Appears fatigued, circles under her eyes, dry mucous membranes Respiratory: Lungs are clear to auscultation, no wheezing no rales no rhonchi. Full and symmetrical air movement Cardiac: Regular rate and rhythm no murmurs no bruits Abdomen: Soft, mild epigastric tenderness and general malaise but no acute pain with no evidence of rebound or guarding. No flank pain Skin: Pale, poor overall skin turgor Neurologic: Grossly neurologically intact with no obvious asymmetries or abnormalities Extremities: No trauma, Psych: Cooperative, appropriate insight and affect Course Orders Ordered: ED Orders 06/26/24 14:39 EKG-12 Lead Stat 06/26/24 15:13 Complete Blood Count AUTO DIFF Stat Comprehensive Metabolic Panel Stat Lipase Stat 06/26/24 17:52 Urine Microscopic Stat Ondansetron HCl (Ondansetron 4 Mg/2 Ml Inj) 4 mg IV NOW PRN PRN Reason: Nausea And Vomiting Last Admin: 06/26/24 14:53 Dose: 4 mg Documented By: MELLISSA Ondansetron HCl (Ondansetron 4 Mg Odt) 4 mg PO NOW PRN PRN Reason: Nausea And Vomiting Discontinued Medications Sodium Chloride (Normal Saline 0.9%) 1,000 mls @ 1,000 mls/hr IV BOLUS ONE Stop: 06/26/24 16:05 Last Infusion: 06/26/24 16:07 Dose: Infused Documented By: Admin: 06/26/24 15:08 Dose: 1,000 mls/hr Documented By: STARR Sodium Chloride (Normal Saline 0.9%) 1,000 mls @ 1,000 mls/hr IV BOLUS ONE Stop: 06/26/24 17:05 Last Infusion: 06/26/24 17:13 Dose: Infused Documented By: Admin: 06/26/24 16:10 Dose: 1,000 mls/hr Documented By: STARR Pantoprazole Sodium (Pantoprazole 40 Mg Vial) 40 mg IV NOW ONE Stop: 06/26/24 16:07 Last Admin: 06/26/24 16:12 Dose: 40 mg Documented By: STARR Prochlorperazine (Prochlorperazine 10 Mg/2 Ml Vial) 10 mg IV NOW ONE Stop: 06/26/24 18:16 Vital Signs Vital signs: Vital Signs - 8 hr 06/26/24 14:34 06/26/24 14:59 06/26/24 15:00 Temperature 98.7 F Pulse Rate 88 76 77 Respiratory Rate 20 Blood Pressure 119/87 Pulse Oximetry 100 97 100 Oxygen Delivery Method Room Air 06/26/24 15:01 06/26/24 15:01 06/26/24 15:30 Temperature Pulse Rate 75 Respiratory Rate Blood Pressure 118/75 127/80 Pulse Oximetry 100 Oxygen Delivery Method 06/26/24 15:30 06/26/24 16:00 06/26/24 16:00 Temperature Pulse Rate 71 70 Respiratory Rate Blood Pressure 124/72 Pulse Oximetry 100 100 Oxygen Delivery Method 06/26/24 16:30 06/26/24 16:30 06/26/24 17:00 Temperature Pulse Rate 69 65 Respiratory Rate Blood Pressure 133/83 Pulse Oximetry 100 99 Oxygen Delivery Method 06/26/24 17:00 Temperature Pulse Rate Respiratory Rate Blood Pressure 139/78 Pulse Oximetry Oxygen Delivery Method MDM - Nausea/Vomiting/Diarrhea Lab Data 06/26/24 15:13 06/26/24 15:13 Labs: Lab Results 06/26/24 06/26/24 Range/Units 15:13 17:52 WBC 3.9 L (4.5-11.0) X10^3/uL RBC 4.87 (4.0-5.2) X10^6/uL Hgb 15.0 (12.0-16.0) g/dL Hct 44.3 (36-46) % MCV 90.9 (80-100) fL MCH 30.7 (26-34) PG MCHC 33.8 (30-36) % RDW 12.7 (11.6-14.8) % Plt Count 192 (150-400) X10^3/uL Neut % (Auto) 55.8 (50-75) % Lymph % (Auto) 29.2 (25-40) % [place] % (Auto) 14.5 H (3-14) % Eos % (Auto) 0.1 L (2-4) % Baso % (Auto) 0.4 (0-2) % Neut # (Auto) 2200 (4992-9923) /uL Lymph # (Auto) 1100 (8619-7382) /uL [place] # (Auto) 600 (0-900) /uL Eos # (Auto) 0 (0-450) /uL Baso # (Auto) 0 (0-100) /uL Sodium 140 (137-145) mmol/L Potassium 3.3 L (3.4-5.1) mmol/L Chloride 111 H (98-107) mmol/L Carbon Dioxide 17 L (22-32) mmol/L BUN 10 (7-17) mg/dL Creatinine 0.69 (0.52-1.04) mg/dL Estimated GFR > 60 (>60) mL/min BUN/Creatinine Ratio 14.5 (6-22) Glucose 92 (70-100) mg/dL Calcium 9.2 (8.4-10.2) mg/dL Total Bilirubin 0.6 (0.2-1.3) mg/dL AST 66 H (14-36) IU/L ALT 59 H (<35) IU/L Alkaline Phosphatase 59 (38-126) U/L Total Protein 7.5 (6.3-8.2) g/dL Albumin 4.5 (3.5-5.0) g/dL Globulin 3.0 (1.7-4.1) g/dL Albumin/Globulin Ratio 1.5 (1.0-2.8) Lipase 103 (23-300) U/L Urine RBC 0-1/hpf (0-5/HPF) Urine WBC 0-1/hpf (0-5/HPF) Ur Squamous Epith Cells 1-5 /hpf (0-5/HPF) Urine Bacteria Occasional (0-1) (None) Urine Mucus 1+ H (Negative) Ur Culture Indicated? Cult not indicated Vol Urine Centrifuged 10ml (spun) Point of Care Testing Test Results Negative Urine Dip Bedside Urine Glucose Negative Bedside Urine Bilirubin - Negative Bedside Urine Ketone ++ 40 Urine Specific [place] 1.010 Bedside Urine Occult Blood - Negative Bedside Urine pH 7.5 Bedside Urine Protein +/- 15 Bedside Urine Urobilinogen - Negative Bedside Urine Nitrite - Negative Bedside Urine Leukocytes - Negative Esterase MDM Narrative Medical decision making narrative: CC: Fevers, myalgias, persistent vomiting abdominal pain and diarrhea. Other family members positive for influenza Complicating co-morbidities: Multiple other family members with influenza a Data collected from: patient Differential considered: Influenza a, acute electrolyte abnormality, acute renal failure Exam documented above, pertinent findings include: Patient appears fatigued but is not acutely toxic. She does not have an acute surgical abdomen. Lungs are clear Lab Test results independently reviewed as above. Pertinent findings: CBC Actually shows a slightly low white count at 3.9, no anemia normal platelets Chemistries mild hypokalemia at 3.3. Renal function is appropriate as is BUN. Minimally elevated AST and ALT that are actually significantly lower than when previously checked. Lipase is unremarkable Urine does not suggest infection Independently reviewed EKG: Sinus rhythm at a rate of 79 no acute ischemic changes Treatments: 2 L of saline, IV Compazine, IV pantoprazole, IV Zofran Discussion: 43-year-old woman with persistent nausea presumably related to influenza. No dramatic electrolyte abnormalities. Normal renal function. Potassium minimally low. He has had 2 L of fluid. Seemed to respond better to IV Compazine. At this point is at least tolerating sips of water. He has seeing no acute indication for hospitalization at this time. I will send her home with prescriptions for both oral Compazine and oral Zofran. If she has worsening symptoms or continued intractable vomiting she does not need to return to the emergency department. Questions are answered and she is safe for discharge Discharge Plan Departure Patient Disposition: Home Clinical Impression: Influenza A, Intractable vomiting Instructions: DI for Influenza -- Adult, DI for Vomiting -- Adult Activity Restrictions/Additional Instructions: Thank you for coming in today I am sorry that you are suffering so much with your bout of influenza with such intractable vomiting. Fortunately, you do not have acute kidney failure, your liver studies are unremarkable, there was no sign of bacterial infection and no urinary tract infection. Your potassium was slightly low that is expected with the degree of vomiting that you have done In the emergency department you were given 2 L of fluid, an IV dose of Protonix which is a stomach acid reduce her medication. I used ondansetron and prochlorperazine both of which are nausea medicines work through different mechanisms. If you find that you are getting worse or develop any new symptoms, please feel free to return to the emergency department for further evaluation. Prescriptions: New ondansetron 4 mg tablet,disintegrating 4 mg PO Q8H PRN (Reason: nausea and vomiting) Qty: 14 0RF prochlorperazine maleate 10 mg tablet 10 mg PO Q8H PRN (Reason: nausea and vomiting) Qty: 14 0RF No Action sumatriptan succinate 4 mg/0.5 mL cartridge 4 mg SUBCUT ONCE Qty: 1 0RF ywpxmgqxyw-zkclbdsesstwl-dscx 50-325-40 mg tablet PO rxtckgonor-prmsntuqjo-qup-cod 34-619-32-30 mg capsule See Rx Instructions .ROUTE .COMPLEX Qty: 20 0RF Dose Instruction: take 2 capsules by mouth every 6 hours if needed for pain MAX 2 DAYS PER WEEK Rx Instructions: take 2 capsules by mouth every 6 hours if needed for pain MAX 2 DAYS PER WEEK fluoxetine 40 mg capsule 80 mg PO DAILY Qty: 60 0RF Rx Instructions: patient needs appointment for future refills. ondansetron 4 mg tablet,disintegrating 4 mg PO TID-QID PRN (Reason: nausea and vomiting) Qty: 20 0RF rizatriptan 10 mg tablet,disintegrating 10 mg PO ONCE hydroxyzine pamoate 25 mg capsule 25 mg PO BID PRN (Reason: anxiety) Qty: 60 11RF epinephrine [EpiPen] 0.3 mg/0.3 mL auto-injector 0.3 mg IM Q5-15M PRN (Reason: hypersensitivity reaction) Qty: 2 0RF Rx Instructions: do not exceed 3 doses per episode sulfamethoxazole-trimethoprim 800-160 mg tablet 1 tab PO BID Qty: 10 0RF tamsulosin 0.4 mg capsule 0.4 mg PO DAILY Qty: 14 0RF Referrals: Glendy Philip DO [Primary Care Provider] - Stand Alone Forms: Patient Portal/API/Survey
[2024-06-26] MEDS: SODIUM CHLORIDE 0.9% 1,000 ML 1000 ML IV ×2 (15:08→16:10)
[2024-06-26 15:25] LABS: Add Manual Diff / Slide Review NO; Basophils Absolute Auto 0 /uL (0-100); Basophils Percent Auto 0.4 % (0-2); Eosinophils Absolute Auto 0 /uL (0-450); Eosinophils Percent Auto 0.1 % (2-4); Hematocrit 44.3 % (36-46); Lymphocytes Absolute Auto 1100 /uL (1100-4500); Lymphocytes Percent Auto 29.2 % (25-40); Mean Corpuscular HGB Conc 33.8 % (30-36); Mean Corpuscular Hemoglobin 30.7 PG (26-34); Mean Corpuscular Volume 90.9 fL (80-100); Monocytes Absolute Auto 600 /uL (0-900); Monocytes Percent Auto 14.5 % (3-14); Neutrophils Absolute Auto 2200 /uL (1500-7000); Neutrophils Percent Auto 55.8 % (50-75); Platelet Count 192 X10^3/uL (150-400); Red Blood Cell Count 4.87 X10^6/uL (4.0-5.2); Red Cell Distribution Width 12.7 % (11.6-14.8); White Blood Cell Count 3.9 X10^3/uL (4.5-11.0)
[2024-06-26 15:40] LABS: Alanine Aminotransferase 59 IU/L (<35); Albumin 4.5 g/dL (3.5-5.0); Albumin Globulin Ratio 1.5 (1.0-2.8); Alkaline Phosphatase 59 U/L (38-126); Aspartate Aminotransferase 66 IU/L (14-36); BUN Creatinine Ratio 14.5 (6-22); Bilirubin Total 0.6 mg/dL (0.2-1.3); Blood Urea Nitrogen 10 mg/dL (7-17); Calcium 9.2 mg/dL (8.4-10.2); Carbon Dioxide 17 mmol/L (22-32); Chloride 111 mmol/L (98-107); Estimated Glomerular Filt Rate > 60 mL/min (>60); Glucose 92 mg/dL (70-100); HEMOLYSIS 48 (0-50); Lipase 103 U/L (23-300); Potassium 3.3 mmol/L (3.4-5.1); Sodium 140 mmol/L (137-145); Total Protein 7.5 g/dL (6.3-8.2)
[2024-06-26] MEDS: PANTOPRAZOLE 40 MG VIAL IV (16:12)
[2024-06-26 18:10] LABS: Bacteria Urine Occasional (0-1); Culture Indicated Urine Cult Not Indicated; Mucus Urine 1+ (Negative); RBC Urine 0-1/HPF (0-5/HPF); Squamous Epithelial Cell Urine 1-5 /HPF (0-5/HPF); Urine Volume 10mL (spun); WBC Urine 0-1/HPF (0-5/HPF)
[2024-06-26] MEDS: PROCHLORPERAZINE 10 MG/2 ML VIAL IV (18:38)
== END 2024-06-26 19:30 | disposition home or self-care (01) ==
PROVIDERS: Emergency Provider Emergency Medicine; Family Provider Family Medicine; PCP Family Medicine
DX: J10.1 Influenza due to other identified influenza virus with other respiratory manifestations (principal); R11.10 Vomiting, unspecified
CPT/HCPCS: 36415; 80053; 81003; 81015; 81025; 83690; 85025; 93005; 93010; 96361; 96374; 96375; 99283; 99284; J0780; J2405; J2470

== ENCOUNTER → 2024-07-20 09:49 | Outpatient (CLI) | payer OTHER, SELFPAY | PROVIDERS: Family Provider Family Medicine; PCP Family Medicine; Visit Provider Nurse Practitioner Family | DX: R30.0 Dysuria (principal) | CPT/HCPCS: 87077; 87086 ==